=== PATIENT | female | born 1950 | race Asian ===

== ENCOUNTER → 2020-09-20 12:53 | Outpatient (CLI) | payer MEDICARE, SELFPAY ==
--- NOTE | ~2020-09-20 | MM_ITS ---
EXAMINATION: MM screening tessie BI w allan HISTORY: Screening TECHNIQUE: Craniocaudal and mediolateral oblique 3-D tomosynthesis images were obtained and synthetic 2-D images were generated. CAD analysis was submitted and interpreted. COMPARISON: Comparison to multiple prior studies sequentially, with oldest reviewed study dated 03/2011. BREAST PARENCHYMAL COMPOSITION: The breasts are heterogeneously dense, which may obscure small masses . FINDINGS: There is no evidence of suspicious mass, calcification, or architectural distortion to sugg est malignancy in either breast. There has been no suspicious interval change. IMPRESSION: 1. No mammographic evidence of malignancy. 2. Recommend routine screening mammography in one year. BI-RADS Category 1: Negative Reviewed, dictated and finalized at location A.
== END ==
DX: Z12.31 Encounter for screening mammogram for malignant neoplasm of breast (principal)
CPT/HCPCS: 77063; 77067

== ENCOUNTER 2023-09-28 09:45 | Inpatient (IN) | payer MEDICARE, SELFPAY ==
[2023-09-28] VITALS (81 sets, daily range): BP systolic 63–174; BP diastolic 35–93; PULSE 55–139; RESP 11–33; TEMP 36.3–37.6; O2SAT 90–100; BMI 17.0
--- NOTE | ~2023-09-28 | XR_ITS ---
EXAMINATION: XR chest 1V portable DATE: 10/12/2023 05:41 INDICATION: Bilateral infiltrates. Mechanical ventilation. TECHNIQUE: A single frontal view of the chest was obtained. COMPARISON: Chest single view 10/11/2023 FINDINGS: There is a diffuse interstitial pattern in the lungs. There are airspace opacities in the r ight upper lobe, right perihilar region, and the lower lung zones. No pleural effusion or pneumothora x. Cardiomegaly is noted. The endotracheal tube tip is 4.2 cm above the julian. The nasogastric tube tip is beyond the inferior margin of the radiograph, but at least to the stomach. A right upper extre mity peripherally inserted central venous catheter (PICC) is seen with tip at the superior cavoatrial junction. There are changes of aortic valve replacement. IMPRESSION: 1. Stable diffuse lung disease, consistent with pulmonary edema versus pneumonia. 2. Cardiomegaly. Reviewed, dictated and finalized at location A. IMPRESSION: 1. Stable diffuse lung disease, consistent with pulmonary edema versus pneumoni a. 2. Cardiomegaly.
--- NOTE | ~2023-09-28 | XR_ITS ---
EXAMINATION: XR chest 1V portable DATE: 10/03/2023 05:52 INDICATION: Intubated. Mechanical ventilation. TECHNIQUE: A single frontal view of the chest was obtained. COMPARISON: Chest single view 10/02/2023 FINDINGS: There are interstitial and airspace opacities in all lung zones bilaterally. No pleural eff usion or pneumothorax. Cardiomegaly is noted. There are changes of aortic valve replacement. The endo tracheal tube tip is 14 mm above the julian. The nasogastric tube tip is beyond the inferior margin o f the radiograph, but at least to the stomach. IMPRESSION: 1. Stable diffuse lung disease, consistent with pulmonary edema versus pneumonia. 2. Cardiomegaly. Reviewed, dictated and finalized at location A. IMPRESSION: 1. Stable diffuse lung disease, consistent with pulmonary edema versus pneumoni a. 2. Cardiomegaly.
--- NOTE | ~2023-09-28 | XR_ITS ---
EXAMINATION: XR chest 1V portable DATE: 10/04/2023 06:01 INDICATION: Intubated on mechanical ventilation. TECHNIQUE: A single frontal view of the chest was obtained. COMPARISON: Chest single view 10/03/2023, chest CT 09/28/2023 FINDINGS: There is a diffuse interstitial pattern in the lungs. There are mild airspace opacities in the upper lobes and lower lung zones. No pleural effusion or pneumothorax. Cardiomegaly is noted. Med elizabeth sternotomy wires and mediastinal surgical clips are seen, likely from prior coronary artery bypas s grafting. The endotracheal tube tip is 2.7 cm above the julian. The nasogastric tube tip is beyond the inferior margin of the radiograph, but at least to the stomach. A right upper extremity periphera lly inserted central venous catheter (PICC) is seen with tip at the superior cavoatrial junction. IMPRESSION: 1. Stable diffuse lung disease, consistent with pulmonary edema versus pneumonia. 2. Cardiomegaly. Reviewed, dictated and finalized at location A. IMPRESSION: 1. Stable diffuse lung disease, consistent with pulmonary edema versus pneumoni a. 2. Cardiomegaly.
--- NOTE | ~2023-09-28 | XR_ITS ---
XR abdomen gastric tube insert Ordering provider: Devon Pearson MD History: . OG placement . Comparison: None. FINDINGS: BOWEL: Nasogastric tube with the tip in the duodenum. Nonobstructive bowel gas pattern. ORGANOMEGALY: None. SIGNIFICANT PATHOLOGIC CALCIFICATIONS: Bilateral kidney stones OTHER: No free air is seen under the diaphragm. IMPRESSION: NO ACUTE ABDOMINAL FINDINGS. Bilateral kidney stones. Reviewed, dictated and finalized at location A.
--- NOTE | ~2023-09-28 | XR_ITS ---
EXAMINATION: XR chest 1V portable DATE: 09/29/2023 05:28 INDICATION: Intubated. TECHNIQUE: A single frontal view of the chest was obtained. COMPARISON: Chest single view 09/28/2023 FINDINGS: There is a diffuse interstitial pattern in the lungs. There are patchy airspace opacities i n the lungs, right worse than left. No pleural effusion or pneumothorax. Cardiomegaly is noted. There are changes of aortic valve replacement. The endotracheal tube tip is 2.3 cm above the julian. The n asogastric tube tip is in the stomach. IMPRESSION: 1. Stable diffuse lung disease, consistent with pulmonary edema versus pneumonia. 2. Cardiomegaly. Reviewed, dictated and finalized at location E. IMPRESSION: 1. Stable diffuse lung disease, consistent with pulmonary edema versus pneumoni a. 2. Cardiomegaly.
--- NOTE | ~2023-09-28 | US_ITS ---
EXAMINATION: US thoracentesis DATE: 10/05/2023 14:45 INDICATION: Right pleural effusion. Failure to wean from vent. TECHNIQUE: The procedure and its risks and benefits were discussed with the patient. Potential risks discussed included bleeding, infection, and pneumothorax. The patient understood the risks and agreed to proceed. The skin was prepped and draped in sterile fashion. 1% lidocaine was used for local anes thesia. Under ultrasound guidance, a 5 Fr catheter with trochar was advanced into the right pleural e ffusion. Fluid was aspirated. The catheter was removed, and a dressing was applied. There were no imm ediate complications. FINDINGS: Ultrasound images demonstrate a small right pleural effusion and the catheter within the fluid. IMPRESSION: 1. Successful ultrasound-guided thoracentesis yielding 500 mL of clear light yellow fluid. Reviewed, dictated and finalized at location A. IMPRESSION: 1. Successful ultrasound-guided thoracentesis yielding 500 mL of clear light y ellow fluid.
--- NOTE | ~2023-09-28 | XR_ITS ---
EXAMINATION: XR chest 1V portable DATE: 10/02/2023 05:46 INDICATION: Intubated on mechanical ventilation. TECHNIQUE: A single frontal view of the chest was obtained. COMPARISON: Chest single view 10/01/2023, chest CT 09/28/2023 FINDINGS: There are airspace and interstitial opacities in all lung zones bilaterally. No pleural eff usion or pneumothorax. Cardiomegaly is noted. The endotracheal tube tip is 2.4 cm above the julian. T here are changes of aortic valve replacement. IMPRESSION: 1. Stable diffuse lung disease, consistent with pulmonary edema versus pneumonia. 2. Cardiomegaly. Reviewed, dictated and finalized at location A. IMPRESSION: 1. Stable diffuse lung disease, consistent with pulmonary edema versus pneumoni a. 2. Cardiomegaly.
--- NOTE | ~2023-09-28 | XR_ITS ---
EXAMINATION: XR chest 1V portable DATE: 10/10/2023 05:36 INDICATION: Bilateral infiltrates. Mechanical ventilation. TECHNIQUE: A single frontal view of the chest was obtained. COMPARISON: Chest single view 10/09/2023 FINDINGS: There is a diffuse interstitial pattern in the lungs. There are airspace opacities in right upper lobe, right perihilar region, and left lower lung zone. No pleural effusion or pneumothorax. C ardiomegaly is noted. There are changes of aortic valve replacement. The nasogastric tube tip is in t he stomach. The endotracheal tube tip is 3.4 cm above the julian. A right upper extremity peripherall y inserted central venous catheter (PICC) is seen with tip in the superior vena cava. IMPRESSION: 1. Stable diffuse lung disease, consistent with pulmonary edema versus pneumonia. 2. Cardiomegaly. Reviewed, dictated and finalized at location A. IMPRESSION: 1. Stable diffuse lung disease, consistent with pulmonary edema versus pneumoni a. 2. Cardiomegaly.
--- NOTE | ~2023-09-28 | XR_ITS ---
EXAMINATION: XR chest 1V portable DATE: 10/06/2023 05:40 INDICATION: Respiratory failure TECHNIQUE: frontal view of the chest was obtained. COMPARISON: Chest radiograph dated 10/05/2023 FINDINGS: Endotracheal tube tip 3.2 cm above the julian. Nasogastric tube tip in proximal side port in the stom ach. Diffuse mild increased interstitial opacities throughout both lungs. There are more focal airspace op acities in the left lower lung zone. No pleural effusion or pneumothorax. Cardiomegaly. Median sterno shonna wires and mediastinal surgical clips are seen, likely from prior coronary artery bypass grafting . Coronary artery stenting. Aortic valve repair. IMPRESSION: 1. Diffuse increased interstitial pattern and focal airspace opacities in the left lower lung zone wh ich could represent pneumonia, atelectasis, mild pulmonary edema or some combination thereof. 2. Cardiomegaly. Reviewed, dictated and finalized at location A. IMPRESSION: 1. Diffuse increased interstitial pattern and focal airspace opacities in the l eft lower lung zone which could represent pneumonia, atelectasis, mild pulmonar y edema or some combination thereof. 2. Cardiomegaly.
--- NOTE | ~2023-09-28 | CT_ITS ---
EXAMINATION: CT chest abdomen pelvis wo con DATE: 10/04/2023 10:50 INDICATION: Acute anemia. TECHNIQUE: Computed tomography (CT) of the chest, abdomen, and pelvis was performed without intraveno us contrast. Automated exposure control and iterative reconstruction technique were employed. The dos e-length product was 369.85 mGy-cm. COMPARISON: CT 09/28/2023 FINDINGS: CHEST CT: The lungs demonstrate widespread septal thickening and groundglass opacities and small groundglass op acities. There are small nodules in right upper lobe and right middle lobe. There are small pleural e ffusions, right worse than left. Cardiomegaly is noted. There are coronary artery calcifications. The re are changes of coronary artery bypass grafting. There are changes of aortic valve replacement. No pericardial effusion. There is mild mucosal lymphadenopathy, likely reactive. A right upper extremity peripherally inserted central venous catheter (PICC) is seen with tip at the superior cavoatrial jose ction. There is an endotracheal tube tip in expected position. The nasogastric tube tip is in the dis lisandro stomach. There is mild thoracic spondylosis. ABDOMEN/PELVIS CT: The liver demonstrates periportal edema. The gallbladder is distended and contains material measuring soft tissue attenuation, which may be sludge or contrast. The spleen, pancreas, and adrenal glands a re normal. There is cortical thinning of the kidneys. There are multiple stones in each kidney measur ing up to 6 mm. There is calcified atherosclerosis of the aorta and many of the other arteries. Stool distends the rectum. The appendix is normal. There is widespread edema of the intra-abdominal fat an d body wall. The bladder is decompressed by a Jain catheter. There is mild lumbar spondylosis. IMPRESSION: 1. Diffuse lung disease, stable from 09/28/2023, consistent with pulmonary edema versus pneumonia. 2. Small pleural effusions, right worse than left. 3. Gallbladder distention, which may be secondary to fasting. Acute cholecystitis is not excluded. 4. Stool distends the rectum. Reviewed, dictated and finalized at location A. IMPRESSION: 1. Diffuse lung disease, stable from 09/28/2023, consistent with pulmonary edema versus pneumonia. 2. Small pleural effusions, right worse than left. 3. Gallbladder distention, which may be secondary to fasting. Acute cholecystit is is not excluded. 4. Stool distends the rectum.
--- NOTE | ~2023-09-28 | XR_ITS ---
EXAMINATION: XR chest 1V portable DATE: 10/13/2023 05:31 INDICATION: Bilateral infiltrates. Mechanical ventilation. TECHNIQUE: A single frontal view of the chest was obtained. COMPARISON: Chest single view 10/12/2023 FINDINGS: There is a diffuse interstitial pattern in the lungs. There are airspace opacities in the r ight upper lobe, perihilar regions, and lower lung zones. No pleural effusion or pneumothorax. Cardio megaly is noted. There are changes of aortic valve replacement. The endotracheal tube tip is 4.3 cm a nicole the julian. The nasogastric tube tip is beyond the inferior margin of the radiograph, but at [place] st to the stomach. A right upper extremity peripherally inserted central venous catheter (PICC) is se en with tip at the superior cavoatrial junction. IMPRESSION: 1. Stable diffuse lung disease, consistent with pulmonary edema versus pneumonia. 2. Cardiomegaly. Reviewed, dictated and finalized at location A. IMPRESSION: 1. Stable diffuse lung disease, consistent with pulmonary edema versus pneumoni a. 2. Cardiomegaly.
--- NOTE | ~2023-09-28 | XR_ITS ---
EXAMINATION: XR chest 1V portable DATE: 10/09/2023 05:36 INDICATION: Intubated mechanical ventilation. TECHNIQUE: A single frontal view of the chest was obtained. COMPARISON: Chest single view 10/08/2023 FINDINGS: There is a diffuse interstitial pattern in the lungs. There are airspace opacities in the r ight upper lobe, right perihilar region, and left lower lung zone. No pleural effusion or pneumothora x. Cardiomegaly is noted. The endotracheal tube tip is 3.8 cm above the julian. The nasogastric tube tip is beyond the inferior margin of the radiograph, but at least to the stomach. There are changes o f aortic valve replacement. A right upper extremity peripherally inserted central venous catheter (PI CC) is seen with tip in the superior vena cava. IMPRESSION: 1. Stable diffuse lung disease, consistent with pulmonary edema versus pneumonia. 2. Cardiomegaly. Reviewed, dictated and finalized at location A. IMPRESSION: 1. Stable diffuse lung disease, consistent with pulmonary edema versus pneumoni a. 2. Cardiomegaly.
--- NOTE | ~2023-09-28 | XR_ITS ---
EXAMINATION: XR chest 1V portable DATE: 10/01/2023 05:44 INDICATION: Intubated. TECHNIQUE: A single frontal view of the chest was obtained. COMPARISON: Chest single view 09/30/2023 FINDINGS: There is a diffuse interstitial pattern in the lungs. There are airspace opacities in the l ower lung zones and right upper lobe. No pleural effusion or pneumothorax. Cardiomegaly is noted. The endotracheal tube tip is 1.8 cm above the julian. The nasogastric tube tip is beyond the inferior ma rgin of the radiograph, but at least to the stomach. IMPRESSION: 1. Stable diffuse lung disease, consistent with pulmonary edema versus pneumonia. 2. Cardiomegaly. Reviewed, dictated and finalized at location A. IMPRESSION: 1. Stable diffuse lung disease, consistent with pulmonary edema versus pneumoni a. 2. Cardiomegaly.
--- NOTE | ~2023-09-28 | XR_ITS ---
EXAMINATION: XR chest 1V portable DATE: 10/07/2023 05:51 INDICATION: Intubation. TECHNIQUE: A single frontal view of the chest was obtained. COMPARISON: Chest single view 10/06/2023, chest CT 10/04/2023 FINDINGS: There is a diffuse interstitial pattern in the lungs. There are airspace opacities in right perihilar region and left lower lung zone. No pleural effusion or pneumothorax. Cardiomegaly is note d. The endotracheal tube tip is 3.4 cm above the julian. The nasogastric tube tip is in the stomach. A right upper extremity peripherally inserted central venous catheter (PICC) is seen with tip at the superior cavoatrial junction. IMPRESSION: 1. Stable diffuse lung disease, consistent with pulmonary edema versus pneumonia. 2. Cardiomegaly. Reviewed, dictated and finalized at location A. IMPRESSION: 1. Stable diffuse lung disease, consistent with pulmonary edema versus pneumoni a. 2. Cardiomegaly.
--- NOTE | ~2023-09-28 | XR_ITS ---
XR chest PICC line Ordering provider: Jeremi Matias MD History: 73 years Female with . PICC placement . Comparison: October 03, 2023. FINDINGS: MEDIASTINUM: The cardiac silhouette is slightly enlarged. Right PICC line is seen with the tip overly ing the superior vena cava. Other supporting lines are unchanged. Prominent heidy. Postoperative changes in the mediastinum. Coronary stent also noted. LUNGS: No effusions or pneumothorax. Prominent markings in the lower lobes with infiltrate. Prominent markings in the upper lobes. Bilateral interstitial changes. OTHER: No free air under the diaphragm. IMPRESSION: Right PICC line with tip overlying superior vena cava. Other appearances are unchanged from previous examination. Reviewed, dictated and finalized at location A. IMPRESSION: Right PICC line with tip overlying superior vena cava. Other appearances are un changed from previous examination.
--- NOTE | ~2023-09-28 | XR_ITS ---
XR_[id number]_CR DATE: 10/05/2023 14:41 INDICATION: Right thoracentesis follow-up TECHNIQUE: Portable upright AP chest on 10/05/2023 at 1438 hours COMPARISON: 10/04/2023 portable AP chest 10/04/2023 CT chest abdomen pelvis FINDINGS: There is no evidence of pneumothorax post right thoracentesis. No pleural effusions are gemma dent radiographically. Endotracheal tube and NG tube are in satisfactory position. Right upper central hepatic catheter tip overlies the superior vena cava near the superior cavoatrial junction. Status post sternotomy. Coronary artery stent Cardiomegaly, aortic atherosclerosis. Mild scattered infiltrate and/or atelectasis is noted, primarily in the left lower lobe. IMPRESSION: No evidence of right-sided pneumothorax following right thoracentesis Reviewed, dictated and finalized at Location A. Reviewed, dictated and finalized at location J. IMPRESSION: No evidence of right-sided pneumothorax following right thoracentes is
--- NOTE | ~2023-09-28 | XR_ITS ---
EXAMINATION: XR chest ET placement DATE: 09/28/2023 12:44 INDICATION: Endotracheal tube adjustment. TECHNIQUE: A single frontal view of the chest was obtained. COMPARISON: Chest single view at 12:21 PM FINDINGS: There is a diffuse interstitial pattern in the lungs. There are airspace opacities at the l brian bases. No pleural effusion or pneumothorax. Cardiomegaly is noted. There are changes of aortic va lve replacement. The endotracheal tube tip is 2.8 cm above the julian. The nasogastric tube tip is in the stomach. IMPRESSION: 1. Stable diffuse lung disease, consistent with pulmonary edema versus pneumonia. 2. Cardiomegaly. Reviewed, dictated and finalized at location A. IMPRESSION: 1. Stable diffuse lung disease, consistent with pulmonary edema versus pneumoni a. 2. Cardiomegaly.
--- NOTE | ~2023-09-28 | CT_ITS ---
EXAMINATION: CT chest abdomen pelvis wo con DATE: 09/28/2023 11:20 INDICATION: Chest and abdominal pain. TECHNIQUE: Computed tomography (CT) of the chest, abdomen, and pelvis was performed without intraveno us contrast. Automated exposure control and iterative reconstruction technique were employed. The dos e-length product was 277.87 mGy-cm. COMPARISON: None FINDINGS: CHEST CT: The lungs demonstrate diffuse septal thickening. There are airspace and groundglass opacities in the lungs with a perihilar bronchovascular predominance. There are moderate-sized right and small left pl eural effusions. Cardiomegaly is noted. There are changes of aortic valve replacement and coronary ar janette bypass grafting. No pericardial effusion. There is mild thoracic spondylosis. ABDOMEN/PELVIS CT: The liver, spleen, pancreas, and adrenal glands are normal. The bladder is distended and contains hyp erdense material. There is cortical thinning of the kidneys. There are multiple stones in each kidney measuring up to 6 mm on the right. There is calcified atherosclerosis of the aorta and many of the o ther arteries. There is diverticulosis of the colon without evidence of diverticulitis. There are no dilated loops of bowel. The appendix is normal. There is edema of the intra-abdominal fat. There is a small volume of ascites. There are sacral and right ischial decubitus ulcers. There is no evidence o f osteomyelitis. IMPRESSION: 1. Diffuse lung disease, likely moderate pulmonary edema. 2. Moderate-sized right and small left pleural effusions. 3. Small volume of ascites. 4. Gallbladder distention, which may be secondary to fasting. Correlate with physical exam to exclude acute cholecystitis. Reviewed, dictated and finalized at location A. IMPRESSION: 1. Diffuse lung disease, likely moderate pulmonary edema. 2. Moderate-sized right and small left pleural effusions. 3. Small volume of ascites. 4. Gallbladder distention, which may be secondary to fasting. Correlate with ph ysical exam to exclude acute cholecystitis.
--- NOTE | ~2023-09-28 | XR_ITS ---
EXAMINATION: XR chest 1V portable DATE: 10/11/2023 05:42 INDICATION: Bilateral infiltrates. Mechanical ventilation. TECHNIQUE: A single frontal view of the chest was obtained. COMPARISON: Chest single view 10/10/2023 FINDINGS: There is a diffuse interstitial pattern in the lungs. There are airspace opacities in right upper lobe, right perihilar region, and left lower lung zone. No pleural effusion or pneumothorax. C ardiomegaly is noted. The endotracheal tube tip is 3.3 cm above the julian. The nasogastric tube tip is beyond the inferior margin of the radiograph, but at least to the stomach. There are changes of ao rtic valve replacement. A right upper extremity peripherally inserted central venous catheter (PICC) is seen with tip at the superior cavoatrial junction. IMPRESSION: 1. Stable diffuse lung disease, consistent with pulmonary edema versus pneumonia. 2. Cardiomegaly. Reviewed, dictated and finalized at location A. IMPRESSION: 1. Stable diffuse lung disease, consistent with pulmonary edema versus pneumoni a. 2. Cardiomegaly.
--- NOTE | ~2023-09-28 | XR_ITS ---
EXAMINATION: XR chest 1V portable DATE: 09/30/2023 05:46 INDICATION: Intubated. TECHNIQUE: A single frontal view of the chest was obtained. COMPARISON: Chest single view 09/29/2023 FINDINGS: There is a diffuse interstitial pattern in the lungs. There are airspace opacities in the r ight lung zones and left lower lung zone. There is a small right pleural effusion. No pneumothorax. C ardiomegaly is noted. The endotracheal tube tip is 3.3 cm above the julian. The nasogastric tube tip is beyond the inferior margin of the radiograph, but at least to the stomach. There are changes of ao rtic valve replacement. IMPRESSION: 1. Stable diffuse lung disease, consistent with pulmonary edema versus pneumonia. 2. Small right pleural effusion. 3. Cardiomegaly. Reviewed, dictated and finalized at location A. IMPRESSION: 1. Stable diffuse lung disease, consistent with pulmonary edema versus pneumoni a. 2. Small right pleural effusion. 3. Cardiomegaly.
--- NOTE | ~2023-09-28 | XR_ITS ---
EXAMINATION: XR abdomen/kub 1V DATE: 09/28/2023 12:27 INDICATION: Nasogastric tube placement. TECHNIQUE: A supine view of the abdomen was obtained. COMPARISON: None. FINDINGS: There are no dilated loops of bowel. The lower abdomen is excluded. The nasogastric tube ti p is in the distal stomach. IMPRESSION: 1. Nasogastric tube in the distal stomach. Reviewed, dictated and finalized at location A.
--- NOTE | ~2023-09-28 | US_ITS ---
EXAMINATION: US renal BI DATE: 09/28/2023 14:54 INDICATION: Acute kidney injury. TECHNIQUE: Multiple ultrasound grayscale images of the kidneys were obtained. COMPARISON: CT 09/28/2023 FINDINGS: The right kidney measures 8.6 x 3.5 x 3.9 cm. The left kidney measures 9.5 x 4.5 x 3.6 cm. The kidney s demonstrate increased parenchymal echogenicity, consistent with nonspecific nephropathy. There is n o hydronephrosis. The bladder is decompressed by a Jain catheter. Perihepatic ascites is noted. IMPRESSION: 1. Mild atrophy of right kidney. No hydronephrosis. 2. Small volume of ascites. Reviewed, dictated and finalized at location E.
--- NOTE | ~2023-09-28 | US_ITS ---
EXAMINATION:US venous doppler LE BI INDICATION:Fever. Rule out DVT. TECHNIQUE: Multiple grayscale, color flow and Doppler images of the right and left lower extremity de ep venous systems were obtained and reviewed. COMPARISON: No prior studies for comparison. FINDINGS: The common femoral, superficial femoral and popliteal veins demonstrate normal respiratory variation, augmentation and compressibility. Color flow is also seen within the posterior tibial, pe roneal, greater saphenous and profunda veins. IMPRESSION: 1: No lower extremity deep venous thrombosis. Reviewed, dictated and finalized at location B.
--- NOTE | ~2023-09-28 | US_ITS ---
EXAMINATION: US venous doppler UE DATE: 10/10/2023 15:22 INDICATION: Bilateral upper limb swelling at the hands TECHNIQUE: Grayscale images without and with compression and Doppler images of the bilateral upper ex tremity veins were obtained. COMPARISON: None. FINDINGS: The right internal jugular vein, subclavian vein, axillary vein, brachial vein, basilic vein, cephali c vein, radial vein, and ulnar vein are patent. Linear echogenic appreciably peripherally inserted central venous catheter is seen in the right basil ic, axillary and subclavian arteries. The left internal jugular vein, subclavian vein, axillary vein, brachial vein, basilic vein, cephalic vein, radial vein, and ulnar vein are patent. IMPRESSION: 1. Patent bilateral upper extremity veins. No evidence of venous thrombosis. Reviewed, dictated and finalized at location A.
--- NOTE | ~2023-09-28 | XR_ITS ---
EXAMINATION: XR chest 1V portable DATE: 10/08/2023 05:38 INDICATION: Pneumonia. TECHNIQUE: A single frontal view of the chest was obtained. COMPARISON: Chest single view 10/07/2023 FINDINGS: There is a diffuse interstitial pattern in the lungs. There are airspace opacities in right perihilar region and left lower lung zone. No pleural effusion or pneumothorax. Cardiomegaly is note d. The endotracheal tube tip is 3.8 cm above the julian. There are changes of aortic valve replacemen t. The nasogastric tube tip is in the distal stomach. A right upper extremity peripherally inserted c entral venous catheter (PICC) is seen with tip at the superior cavoatrial junction. IMPRESSION: 1. Stable diffuse lung disease, consistent with pulmonary edema versus pneumonia. 2. Cardiomegaly. Reviewed, dictated and finalized at location A. IMPRESSION: 1. Stable diffuse lung disease, consistent with pulmonary edema versus pneumoni a. 2. Cardiomegaly.
--- NOTE | ~2023-09-28 | XR_ITS ---
EXAMINATION: XR chest ET placement DATE: 09/28/2023 12:27 INDICATION: Intubation. TECHNIQUE: A single frontal view of the chest was obtained. COMPARISON: Chest 2 views 02/29/2016 FINDINGS: There is a diffuse interstitial pattern in the lungs. There are airspace opacities in the l ower lung zones and in peripheral right upper lobe. Skinfolds overlie right hemithorax. No pleural ef fusion or pneumothorax. The heart size is normal. The endotracheal tube tip is in the right mainstem bronchus. There are changes of aortic valve replacement. The nasogastric tube tip is in the stomach. IMPRESSION: 1. Endotracheal tube tip in the right mainstem bronchus. I called this result to Dr. Herzog. 2. Worsening diffuse lung disease, consistent with pulmonary edema versus pneumonia. Reviewed, dictated and finalized at location A. IMPRESSION: 1. Endotracheal tube tip in the right mainstem bronchus. I called this result t o Dr. Herzog. 2. Worsening diffuse lung disease, consistent with pulmonary edema versus pneum onia.
--- NOTE | ~2023-09-28 | CT_ITS ---
EXAMINATION: CT brain wo con DATE: 09/28/2023 11:20 INDICATION: Altered mental status. TECHNIQUE: Computed tomography (CT) of the head was performed without intravenous contrast. The mA wa s adjusted according to patient size. Iterative reconstruction technique was employed. The dose-lengt h product was 908.00 mGy-cm. COMPARISON: None FINDINGS: There is an old infarct involving the right basal ganglia and anterior limb right internal capsule. There is an old infarct in right parietal lobe. There is no intracranial hemorrhage, acute i nfarction, or abnormal intracranial mass lesion. The ventricles are normal in size. The mastoid air c ells are normal. The paranasal sinuses are clear. IMPRESSION: 1. 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 Reviewed, dictated and finalized at location A. IMPRESSION: 1. 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
--- NOTE | 2023-09-28 09:50 | ECG_ITS ---
Test Date: 2023-09-28 09:56:03 Measurements Intervals [place] Rate: 70 P: 54 [place]: 177 QRS: 64 QRSD: 114 T: 156 QT: 381 QTc: 413 Interpretive Statements SINUS RHYTHM POSSIBLE LEFT ATRIAL ENLARGEMENT [-0.1mV P-WAVE IN V1/V2] SEPTAL MYOCARDIAL INFARCTION , OF INDETERMINATE AGE [40+ ms Q WAVE IN V1/V2] MODERATE T-WAVE ABNORMALITY, CONSIDER LATERAL ISCHEMIA [-0.1+ mV T-WAVE IN I/aVL/V5/V6] No previous ECG available for comparison Electronically Signed On 09-29-2023 13:32:47 CDT by Morgan Reed M.D.
[2023-09-28 10:17] LABS: Alveolar/Arterial O2 Gradient < 0.0 mmHg; Base Excess ABG 6.9 mEq/l (+/-2.0); Fractional Inspired Oxygen 28 %; HCO3 ABG 37.4 mEq/l (22.0-26.0); Oxygen Saturation ABG 95.3 % (95.0-100.0); Oxyhemoglobin 96.4 % THb (90.0-100.0); PO2 ABG 97.6 mmHg (80.0-100.0); PO2 FiO2 Ratio Arterial Blood 3.49 %; Total Hemoglobin 10.2 g/dL (12.0-18.0)
[2023-09-28 10:17] LABS: Basophils Percent Auto 0.4 % (0.2-1.2); Eosinophils Absolute Auto 0.3 K/mm3 (0-0.3); Hematocrit 33.2 % (37.0-47.0); Hemoglobin 9.6 g/dL (12.0-15.0); Immature Granulocyte Absolute 0.03 K/mm3 (0.00-0.031); Immature Granulocyte Percent A 0.3 % (0-0.5); Lymphocytes Percent Auto 21.3 % (18.3-44.2); Mean Corpuscular HGB Conc 28.9 g/dl (32-36); Mean Corpuscular Hemoglobin 29.1 pg (26-34); Mean Corpuscular Volume 100.6 fl (80-100); Mean Platelet Volume 10.5 fl (7.4-10.4); Neutrophils Absolute Auto 7.2 K/mm3 (1.3-6.7); Platelet Count Result 293 k/mm3 (150-375); Red Cell Distribution Width 19.1 % (11.5-14.5); White Blood Count 10.8 K/mm3 (4.5-10.0)
[2023-09-28 10:18] LABS: PCO2 ABG 98.8 mmHg (35.0-45.0); pH ABG 7.196 (7.350-7.450)
[2023-09-28 10:19] LABS: Site Drawn LEFT BRACHIAL
[2023-09-28 10:20] LABS: Device NASAL CANNULA
[2023-09-28] MEDS: ONDANSETRON INJ 4 MG/2 ML VIAL IV PUSH (10:21)
[2023-09-28] MEDS: LACTATED RINGERS 1,000 ML 999 ML IV CONT (10:21)
[2023-09-28 10:30] LABS: Alanine Aminotransferase 25 U/L (6-35); Albumin Level 3.8 g/dL (3.5-5.1); Alkaline Phosphatase 66 U/L (38-126); Aspartate Amino Transferase 36 U/L (14-36); Bilirubin,Total 0.3 mg/dL (0.2-1.3); Blood Urea Nitrogen 61 mg/dL (7-17); Carbon Dioxide > 40 mmol/L (22-30); Chloride 95 mmol/L (98-107); Estimated CRCL calculation 13 ml/min; Estimated Glomerular Filt Rate 22; Glucose 150 mg/dL (65-110); Potassium 5.4 mmol/L (3.4-5.0); Sodium 140 mmol/L (137-145)
[2023-09-28] MEDS: ALBUTEROL SULFATE NEB 2.5 MG/3 ML INH 5 MG INHALATION ×3 (10:33→10:34)
[2023-09-28] MEDS: IPRATROPIUM BR 0.02% INH SOLN 0.5 MG/2.5 ML VIAL INHALATION ×3 (10:34)
[2023-09-28 10:36] LABS: NT Pro B Type Natriuretic Pept 14000 pg/mL (19.9-100)
[2023-09-28 10:37] LABS: Anisocytosis 1+; Hypochromasia 1+; Platelet Estimate Adequate (Adequate); Poikilocytosis 1+; Schistocytes None Seen; Stomatocytes 1+; Target Cells 1+
[2023-09-28 10:39] LABS: Troponin I 0.028 ng/mL (0.000-0.034)
[2023-09-28 10:40] LABS: INR 4.6; Prothrombin Time 43.7 Seconds (11.1-14.7)
[2023-09-28 10:41] LABS: Partial Thromboplastin Time 47.4 Seconds (22.3-36.8)
[2023-09-28] MEDS: MAGNESIUM SULF 2 GM/WATER 50ML 2 GM/50 ML BAG IVPB (10:45)
[2023-09-28] MEDS: methylPREDNISolone SOD SUCC 125 MG VIAL IV PUSH (10:45)
--- NOTE | 2023-09-28 11:09 | ED.AMS ---
HPI - Altered Mental Status General Chief Complaint: Altered Mental Status Stated Complaint: AMS, FTT Time Seen by Provider: 09/28/23 09:52 History of Present Illness HPI narrative: This is a 73-year-old female with past medical history including coronary artery disease status post CABG, mechanical AV valve replacement, hypertension, hyperlipidemia and diabetes. Patient presents accompanied by her for concerns of altered mental status and failure to thrive symptoms over last few days. Patient is normally awake and alert x3 and able to ambulate in a wheelchair. Patient's noted that over last 24 hours she has been very somnolent, not intractable, does not know where she is and is only alert occasionally to her name. Patient is intractable does follow commands. No obvious signs of trauma no concerns for falls per . She is on warfarin but does not get her levels frequently checked. Patient is not eating or drinking in the last few days. No nausea, vomiting or diarrhea per . No dark tarry stools or blood per rectum. states that she was recently started on Bactrim for suspected UTI on the 6th of this month. Prior to these episodes she was otherwise in her normal state of health and has never had anything like this happen to her in the past. Related Data Allergies Allergy/AdvReac Type Severity Reaction Status Date / Time hydrocodone Allergy Mild Nausea and Verified 08/18/14 12:23 Vomiting Penicillins Allergy Unknown Verified 10/24/11 12:22 Review of Systems Review of Systems: As reviewed above in the HPI [facility] Surgical History Surgical History (Updated 09/28/23 @ 11:11 by Pancho Herzog MD) Aortic valve replaced Hx of CABG Family History Family History Mother Patient's mother is Family history of coronary artery disease, Onset Age: 65 Father Patient's father is Other Diabetes mellitus Family history of cardiovascular disease Hypertension Social History Social History Smoking status: Never smoker Second hand tobacco smoke exposure: No Alcohol intake: never Exam Narrative: GENERAL: Ill-appearing, cachectic in appearance, in mild respiratory distress HEAD: [Normocephalic, atraumatic.] EYES: [PERRLA and EOMI.] ENT: Nares clear, no rhinorrhea or epistaxis. Mucous membranes moist. NECK: Supple. CHEST: Diminished air entry, mild respiratory distress, some labored respirations. HEART: [Regular rate and rhythm]. No murmur heard. [Normal peripheral pulses.] ABDOMEN: [Soft, nondistended], [nontender], [No rigidity or guarding] EXTREMITIES: Normal range of motion. [No edema.] SKIN: Warm, dry, no rash. NEURO: Seems to move all extremities, alert oriented x1, limited neuro exam based on patient's level of mentation at this time PSYCH: Unable to fully assess Course Vital Signs Vital signs: Vital Signs Temperature 36.7 C 09/28/23 09:57 Pulse Rate 70 09/28/23 09:57 Respiratory Rate 20 09/28/23 09:57 Blood Pressure 148/50 H 09/28/23 09:57 Pulse Oximetry 100 09/28/23 09:57 Oxygen Delivery Room Air 09/28/23 09:57 Temperature 36.7 C 09/28/23 09:57 Pulse Rate 80 09/28/23 14:14 Respiratory Rate 20 09/28/23 13:54 Blood Pressure 172/62 H 09/28/23 13:54 Pulse Oximetry 97 09/28/23 14:14 Oxygen Delivery Mechanical Ventilation 09/28/23 14:14 Oxygen Flow Rate 2 09/28/23 10:06 Fraction of Inspired Oxygen 35 09/28/23 14:14 Procedures ABG Interpretation ABG Interpretation 1: ABG Results: PH 7.19, pCO2 98, bicarb of 37.4 Interpretation: respiratory acidosis Additional Comments: acute on chronic uncompensated respiratory acidosis ABG Interpretation 2: ABG Results: PH 7.133, pCO2 116, bicarb of 38. Interpre
[2023-09-28 11:35] LABS: Base Excess ABG 6.3 mEq/l (+/-2.0); Fractional Inspired Oxygen 80 %; Oxygen Content ABG 14.4 %vol (16.0-22.0); Oxygen Saturation ABG 97.8 % (95.0-100.0); Oxyhemoglobin 98.4 % THb (90.0-100.0); PO2 ABG 144.4 mmHg (80.0-100.0); Total Hemoglobin 10.2 g/dL (12.0-18.0)
[2023-09-28 11:38] LABS: pH ABG 7.133 (7.350-7.450)
[2023-09-28 11:39] LABS: Device NON-INVASIVE VENT; Non-Invasive Expiratory Pressure 5 CMH2O; Non-Invasive Inspiratory Pressure 18 CMH2O; Non-Invasive Vent Rate 10 /MIN; PCO2 ABG 116.2 mmHg (35.0-45.0); Site Drawn LEFT BRACHIAL
[2023-09-28 12:04] LABS: CRP < 0.5 mg/dL (<1.0)
[2023-09-28] MEDS: fentaNYL CITRATE INJ (*CRX) 100 MCG/2 ML VIAL (12:15)
[2023-09-28] MEDS: FENTANYL 2,500MCG/NS250ML(*CRX 2,500 MCG/250 ML BAG (12:31)
[2023-09-28 13:02] LABS: Alveolar/Arterial O2 Gradient 103.7 mmHg; Base Excess ABG 13.3 mEq/l (+/-2.0); Fractional Inspired Oxygen 50 %; HCO3 ABG 35.9 mEq/l (22.0-26.0); Oxygen Content ABG 14.7 %vol (16.0-22.0); Oxygen Saturation ABG 99.6 % (95.0-100.0); Oxyhemoglobin 99.2 % THb (90.0-100.0); PCO2 ABG 37.7 mmHg (35.0-45.0); PO2 ABG 210.4 mmHg (80.0-100.0); PO2 FiO2 Ratio Arterial Blood 4.21 %; Total Hemoglobin 10.2 g/dL (12.0-18.0)
[2023-09-28 13:03] LABS: Arterial Blood Gas PEEP 8 cmH2O; Arterial Blood Gas Tidal Volume 380 ml; Arterial Blood Gas Vent Mode CMV; Arterial Blood Gas Ventilator rate 28 /MIN; Device VENTILATOR; Site Drawn RIGHT BRACHIAL; pH ABG 7.597 (7.350-7.450)
--- NOTE | 2023-09-28 13:28 | PC.NURSE ---
1152 Sodium Bicarb given by verbal order by EDP 1153 second dose of Sodium Bicarb given by EDP 1153 Pushed dose of Epi given by EDP 1200 Etomidate 20mg given per verbal order by EDP 1202 Rocuronium 70mg given by verbal order per EDP 1204 pt intubated with tube size 8, 24 at the lip, good color change and bilateral breath sounds. 1215 100 mcg of Fentanyl given by verbal order by EDP and Fentanyl drip for sedation started at 1231.
--- NOTE | 2023-09-28 14:00 | ADMGEN ---
This patient, Allison Ji, was admitted to Intensive Care Unit-6. Patient/family oriented to hospital policies and general routines including ID bracelet, bed and alarms, visiting hours, pain management, procedures, bathroom and other care routines, personal items, smoking policy, room service/diet, and visiting hours. Information on how to activate the Rapid Response Team has been discussed. Patient/Family are encouraged to report perceived risks to care and to ask questions if they do not understand what they are told or what they should do.
[2023-09-28 14:15] LABS: Influenza A QL RT-PCR Negative (Negative); Influenza B QL RT-PCR Negative (Negative); RSV RNA, RT-PCR Negative (Negative); SARS-CoV-2 RNA PCR Negative (Negative)
[2023-09-28 14:30] LABS: Add Urine Microscopic? YES; Appearance Urine Clear (Clear); Bacteria Urine None Seen /hpf; Bilirubin Urine Negative (Negative); Blood Urine Negative (Negative); Color Urine Yellow (Yellow); Glucose Urine UA Negative (Negative); Hyaline Casts Urine Present /lpf; Ketones Urine Trace mg/dL (Negative); Leukocyte Esterase Ur Negative LEU/UL (Negative); Need Manual Microscopic Reviewed; Nitrate Urine Negative (Negative); Non Pathogenic Casts >20; Protein Urine 1+ mg/dL (Negative); RBC Urine 0-2 /hpf (0-2); Specific Grav Ur 1.015 (1.001-1.035); Squamous Epithelial Cell Urine None Seen /hpf (Few); Urobilinogen Urine 0.2 mg/dL (<2.0); WBC Urine 0-5 /hpf (0-3)
[2023-09-28] MEDS: PROPOFOL IV EMULSION 100 ML 2.43 MG IV CONT (14:40)
--- NOTE | 2023-09-28 14:41 | WPDCNINT ---
Assessment and Plan Assessment and plan (1) Acute hypercapnic respiratory failure: Code(s): J96.02 - Acute respiratory failure with hypercapnia Status: Acute Assessment and Plan: 09/27: Patient presented with altered mental status, respiratory distress was found to be an acute hypercapnic respiratory failure, not amenable to BiPAP, was successfully intubated in the ER on 09/28/2023 -acute respiratory failure could be related to interstitial lung disease flare, CHF exacerbation - In the ER patient initial ABG showed pH of 7.19, pCO2 of 98, PO2 of 97 on 2 L nasal cannula, Bicarb of 37, pCO2 -patient was placed on BiPAP, repeat ABG showed pH of 7.13, pCO2 of 119, PO2 of 144 on BiPAP 18/5, 80% FiO2 Currently patient on CMV mode of ventilation, tidal volumes for height is > 8ml/kg. -given her interstitial lung disease, will decrease tidal volumes, -will change I to E ratio secondary to hypercapnic respiratory failure -will start DuoNebs -will give 1 dose of Lasix -patient started on antibiotics with ceftriaxone, doxycycline and vancomycin (will deescalate when cultures are negative) -blood pressures have been stable, was sedated with propofol to maintain a RASS of 0 to - 2, daily a SBT and SAT Repeat ABGs (2) Interstitial lung disease: Code(s): J84.9 - Interstitial pulmonary disease, unspecified Status: Acute Assessment and Plan: Could be related to interstitial lung disease flare -patient was given 1 dose of Solu-Medrol -will place patient on Solu-Medrol Q 6 hours -continue bronchodilators (3) CHF (congestive heart failure): Code(s): I50.9 - Heart failure, unspecified Status: Acute Assessment and Plan: Chest x-ray and CT chest show pulmonary edema and/or pneumonia -elevated proBNP 98880 -will diurese patient with a small dose of Lasix -echocardiogram has been ordered (4) Essential (primary) hypertension: Code(s): I10 - Essential (primary) hypertension Status: Acute Assessment and Plan: Will hold all antihypertensives as patient is on on mechanical ventilation and sedation (5) Type 2 diabetes mellitus without complications: Code(s): E11.9 - Type 2 diabetes mellitus without complications Status: Acute Assessment and Plan: Accu-Cheks and sliding scale insulin -will check hemoglobin A1c (6) Chronic kidney disease, stage 3: Code(s): N18.30 - Chronic kidney disease, stage 3 unspecified Status: Acute Assessment and Plan: Patient has a history of chronic kidney disease, unknown baseline -will monitor urine output, renal function electrolytes (7) Mechanical heart valve present: Code(s): Z95.2 - Presence of prosthetic heart valve Status: Acute Assessment and Plan: Patient has a mechanical aortic valve on Coumadin -according to she does not have her PT/INR checked regularly -INR was 4.5 this admission -will hold Coumadin for today -check PT INR in a.m. and will restart Coumadin if appropriate (8) Encephalopathy: Code(s): G93.40 - Encephalopathy, unspecified Status: Acute Assessment and Plan: Most likely related hypercapnic respiratory failure secondary to CO2 retention -will treat underlying cause -CT brain showed old infarcts involving the right basal ganglia, anterior limb, right internal capsule of, right parietal lobe (9) Electrolyte imbalance: Code(s): E87.8 - Other disorders of electrolyte and fluid balance, not elsewhere classified Status: Acute Assessment and Plan: Hyperkalemia could be related to acidosis -have repeated BMP now -if potassium remains elevated will treat Plan DVT prophylaxis: On Coumadin therapeutic INR Stress ulcer prophylaxis: Protonix Nutrition: NPO for now, will start tube feeds in a.m. Code Status: Full code Critical Care Time Spent: 54 minutes Discussed with , Delta CUELLAR and updated with patient's condition,
--- NOTE | 2023-09-28 15:20 | PM.IMHP ---
H&P: HPI History of Present Illness Date/Time: 09/28/23 15:20 Chief Complaint: Altered mental status. Narrative: This is a 73-year-old female with history of stroke, coronary artery disease, congestive heart failure, status post mechanical aortic valve replacement on warfarin, paroxysmal atrial fibrillation, chronic interstitial lung disease, hypertension, hyperlipidemia, type 2 diabetes mellitus, chronic kidney disease, anemia, and anxiety who presented to the emergency department via EMS from home for evaluation of altered mental status. All of the following history is obtained via a review of her EMR as well as information provided by her family members as she is currently sedated and intubated on mechanical ventilation. She was started on Bactrim on 09/24/2023 for suspected urinary tract infection. She has not been eating or drinking much and has become increasingly weak. Over the past 24 hours she has been somnolent and today was difficult to arouse prompting a call to 911. There are no reports of fever, vomiting, or diarrhea. In the ED: On EMS arrival her SpO2 was 68% on room air and she arrived to the ER on a 100% non-rebreather mask. She has been afebrile since arrival with stable blood pressures. Labs were significant for WBC count of 10.8, hemoglobin 9.6, MCV 100.6, platelet 293, INR 4.6, sodium 140, potassium 5.4, BUN 61, creatinine 2.20, glucose 150, proBNP 61477. Urine is positive for 1+ protein and trace ketones. She was negative for influenza, RSV, and COVID. Head CT showed no acute findings. CT of the chest, abdomen, and pelvis showed diffuse lung disease, likely moderate pulmonary edema, moderate size right and small left pleural effusions, small volume ascites, and gallbladder distension. Initial ABG showed a pH of 7.196, pCO2 98.9, PO2 97.6, bicarb 37.4. She was intubated after repeat blood gas did not show significant improvement. She was given cefepime, vancomycin, furosemide, magnesium sulfate, and DuoNeb and she is being admitted in this setting for further treatment. Review of Systems Review of Systems: Unable to obtain given clinical condition. [facility] Past Medical History Medical History (Updated 09/28/23 @ 23:52 by Edelmira Mock PA-C) Anxiety Cerebrovascular accident Chronic anticoagulation Chronic interstitial lung disease Chronic kidney disease, stage 3 Congestive heart failure Coronary artery disease Essential hypertension Gastroesophageal reflux disease Paroxysmal atrial fibrillation Shingles Type 2 diabetes mellitus Surgical History Surgical History (Updated 09/28/23 @ 15:32 by Edelmira Mock PA-C) History of coronary artery bypass graft History of hysterectomy History of mechanical aortic valve replacement Family History Family History Mother Patient's mother is Family history of coronary artery disease, Onset Age: 65 Father Patient's father is Other Diabetes mellitus Family history of cardiovascular disease Hypertension Social History Social History (Updated 09/28/23 @ 15:32 by Edelmira Mock PA-C) Social History: Surrogate medical decision maker: Delta Kierakijeremiah, spouse. Code status: Full code. Smoking status: Never smoker Second hand tobacco smoke exposure: No Alcohol intake: never Substance use: never Substance use type: does not use Do You Feel Safe in your Home?: Yes Lack of Transportation: No Lack of Food: Never True Current Housing: I Have Housing Concerned About Future Housing: No Difficulty Paying Gas/Electric Bills: No Difficulty Paying for Meds: No Currently Unemployed: No Education: High School Diploma/GED Difficulty w/ Childcare or Family Care: No Spiritual care concerns: No Meds Home Medications and Allergies Home Medications Medication Instructions Recorded Confirmed Type allopurinol 300 mg tablet 300 mg P
[2023-09-28 15:23] LABS: MRSA (PCR) NOT DETECTED (NOT DETECTE)
[2023-09-28] MEDS: MIDAZOLAM 100MG/NS 100ML(*CRX) 100 MG/100 ML BAG IV CONT (15:35)
[2023-09-28 16:16] LABS: Base Excess ABG 14.4 mEq/l (+/-2.0); Fractional Inspired Oxygen 100 %; HCO3 ABG 39.4 mEq/l (22.0-26.0); Oxygen Content ABG 14.2 %vol (16.0-22.0); Oxygen Saturation ABG 99.9 % (95.0-100.0); Oxyhemoglobin 99.6 % THb (90.0-100.0); PCO2 ABG 52.7 mmHg (35.0-45.0); PO2 ABG 516.3 mmHg (80.0-100.0); PO2 FiO2 Ratio Arterial Blood 5.16 %; Total Hemoglobin 9.1 g/dL (12.0-18.0); pH ABG 7.492 (7.350-7.450)
[2023-09-28 16:19] LABS: Arterial Blood Gas Vent Mode CMV; Arterial Blood Gas Ventilator rate 20 /MIN; Device VENTILATOR; Site Drawn RIGHT BRACHIAL
[2023-09-28 16:20] LABS: Arterial Blood Gas PEEP 8 cmH2O; Arterial Blood Gas Tidal Volume 300 ml
[2023-09-28] MEDS: FENTANYL 2,500MCG/NS250ML(*CRX 2,500 MCG/250 ML BAG IV CONT (16:31)
--- NOTE | 2023-09-28 16:45 | PCRCNOTE ---
RT was notified by RN that patient SpO2 dropped to 80s. RT assessed patient. Patient SpO2 was 82% on Vent peep 5 35%. RT adjusted peep and FiO2 to keep SpO2 > 92%. RT notified Dr. Pearson what happens and reported ABG results.
--- NOTE | 2023-09-28 16:52 | PCRCNOTE ---
Window of time for administration has passed. See next scheduled administration.
[2023-09-28 17:06] LABS: Lactic Acid Reflex 1.9 mmol/L (0.7-2.0); Lipase 187 U/L (23-300); Magnesium 2.9 mg/dL (1.6-2.3); Phosphorus 3.4 mg/dL (2.5-4.5)
[2023-09-28 17:12] LABS: Blood Urea Nitrogen 60 mg/dL (7-17); Calcium 8.4 mg/dL (8.4-10.2); Carbon Dioxide > 40 mmol/L (22-30); Chloride 94 mmol/L (98-107); Creatine Kinase 37 U/L (30-135); Estimated CRCL calculation 14 ml/min; Estimated Glomerular Filt Rate 24; Glucose 153 mg/dL (65-110); Potassium 4.9 mmol/L (3.4-5.0); Sodium 140 mmol/L (137-145)
[2023-09-28] MEDS: VANCOMYCIN 500 MG/NS 100 ML 500 MG/100 ML BAG 100 MG IVPB (17:24)
[2023-09-28 17:25] LABS: Triglycerides 118 mg/dL (<150)
[2023-09-28] MEDS: ALBUMIN HUMAN 25% 25 GM/100 ML 100 ML IVPB (17:33)
[2023-09-28] MEDS: methylPREDNISolone SOD SUCC 40 MG VIAL IV PUSH (17:34)
[2023-09-28 17:43] LABS: Glucose Point of Care 141 mg/dl (65-105)
[2023-09-28 17:56] LABS: Procalcitonin 0.1 ng/mL
[2023-09-28 18:06] LABS: Creatinine Urine 40.2 mg/dL
[2023-09-28 18:08] LABS: Potassium Urine Random 62.2 meq/L; Sodium Urine Random 75 meq/L
[2023-09-28] MEDS: DOXYCYCLINE 100 MG/NS 100 ML 100 MG/100 ML BAG IVPB (18:26)
[2023-09-28] MEDS: PANTOPRAZOLE SODIUM IV 40 MG VIAL IV PUSH (18:26)
[2023-09-28 18:41] LABS: Eosinophil Urine None Seen % (None Seen); Urine Eos QC 2nd Tech Confirmed
[2023-09-28 19:03] LABS: MRSA (PCR) NOT DETECTED (NOT DETECTE)
[2023-09-28] MEDS: MINERAL OIL/WHITE PETROLATUM OINTMENT 1 APPLIC EACH EYE (20:08)
[2023-09-28] MEDS: IPRATROPIUM 0.5 MG/ALBUTEROL SULFATE 2.5 MG AMPUL.NEB 3 ML INHALATION (21:03)
[2023-09-29] VITALS (61 sets, daily range): BP systolic 91–121; BP diastolic 43–61; PULSE 62–75; RESP 16–20; TEMP 36.8–37.4; O2SAT 95–99
[2023-09-29 00:20] LABS: Iron 43 ug/dL (37-170)
[2023-09-29 00:30] LABS: Glucose Point of Care 168 mg/dl (65-105)
[2023-09-29] MEDS: ALBUMIN HUMAN 25% 25 GM/100 ML 100 ML IVPB (00:30)
[2023-09-29 00:31] LABS: Percent Iron Saturation 19 % (20-50)
[2023-09-29] MEDS: methylPREDNISolone SOD SUCC 40 MG VIAL IV PUSH ×5 (00:31→23:06)
[2023-09-29 01:52] LABS: Folic Acid > 20.0 ng/mL (2.76->20)
[2023-09-29] MEDS: IPRATROPIUM 0.5 MG/ALBUTEROL SULFATE 2.5 MG AMPUL.NEB 3 ML INHALATION ×4 (02:16→20:02)
[2023-09-29 04:15] LABS: Basophils Percent Auto 0.1 % (0.2-1.2); Hematocrit 26.6 % (37.0-47.0); Hemoglobin 8.1 g/dL (12.0-15.0); Immature Granulocyte Absolute 0.03 K/mm3 (0.00-0.031); Immature Granulocyte Percent A 0.3 % (0-0.5); Mean Corpuscular HGB Conc 30.5 g/dl (32-36); Mean Corpuscular Hemoglobin 28.3 pg (26-34); Mean Platelet Volume 10.9 fl (7.4-10.4); Monocytes Absolute Auto 0.1 K/mm3 (0.1-0.6); Monocytes Percent Auto 0.9 % (2.6-8.5); Neutrophils Percent Auto 87.7 % (45.5-73.1); Nucleated Red Blood Cells Perc 0.2 % (0.0-0.2); Platelet Count Result 248 k/mm3 (150-375); Red Blood Count 2.86 M/mm3 (4.2-5.4); Red Cell Distribution Width 18.7 % (11.5-14.5); White Blood Count 9.1 K/mm3 (4.5-10.0)
[2023-09-29 04:26] LABS: INR 4.1; Partial Thromboplastin Time 44.7 Seconds (22.3-36.8); Prothrombin Time 40.2 Seconds (11.1-14.7)
[2023-09-29 04:32] LABS: Alanine Aminotransferase 22 U/L (6-35); Albumin Level 3.8 g/dL (3.5-5.1); Alkaline Phosphatase 46 U/L (38-126); Anion Gap 12 mmol/L (4-12); Aspartate Amino Transferase 33 U/L (14-36); Bilirubin,Total 0.9 mg/dL (0.2-1.3); Blood Urea Nitrogen 67 mg/dL (7-17); Carbon Dioxide 36 mmol/L (22-30); Chloride 95 mmol/L (98-107); Estimated CRCL calculation 14 ml/min; Estimated Glomerular Filt Rate 24; Glucose 169 mg/dL (65-110); Magnesium 2.9 mg/dL (1.6-2.3); Phosphorus 2.9 mg/dL (2.5-4.5); Potassium 4.6 mmol/L (3.4-5.0); Sodium 143 mmol/L (137-145)
[2023-09-29 04:34] LABS: Lactic Acid Reflex 1.9 mmol/L (0.7-2.0)
[2023-09-29 04:53] LABS: Hemoglobin A1C 6.3 % (<5.7)
[2023-09-29] MEDS: DOXYCYCLINE 100 MG/NS 100 ML 100 MG/100 ML BAG IVPB ×2 (05:00→15:29)
[2023-09-29 05:35] LABS: Alveolar/Arterial O2 Gradient 117.1 mmHg; Base Excess ABG 14.6 mEq/l (+/-2.0); Carboxyhemoglobin 0.2 % THb (0-2.0); Fractional Inspired Oxygen 50 %; HCO3 ABG 37.6 mEq/l (22.0-26.0); Methemoglobin ABG 0.2 %THb (0-1.5); Oxygen Content ABG 11.8 %vol (16.0-22.0); Oxygen Saturation ABG 99.5 % (95.0-100.0); PCO2 ABG 40.2 mmHg (35.0-45.0); PO2 ABG 194.2 mmHg (80.0-100.0); PO2 FiO2 Ratio Arterial Blood 3.88 %; Reduced Hemoglobin 0.6 %THb (0-5.0); Total Hemoglobin 8.1 g/dL (12.0-18.0)
[2023-09-29 05:36] LABS: Arterial Blood Gas Ventilator rate 20 /MIN; Device VENTILATOR; Site Drawn RIGHT BRACHIAL; pH ABG 7.589 (7.350-7.450)
[2023-09-29 05:37] LABS: Arterial Blood Gas PEEP 8 cmH2O; Arterial Blood Gas Tidal Volume 300 ml; Arterial Blood Gas Vent Mode CMV
--- NOTE | 2023-09-29 07:00 | PCRCNOTE ---
Patient remained on 50% FiO2 all night per Dr's orders. This RT decreased FiO2 to 40% @ 0520 due to PaO2 of 194 on morning abg.
[2023-09-29] MEDS: PANTOPRAZOLE SODIUM IV 40 MG VIAL IV PUSH (08:12)
[2023-09-29] MEDS: MINERAL OIL/WHITE PETROLATUM OINTMENT 1 APPLIC EACH EYE ×2 (08:13→19:39)
--- NOTE | 2023-09-29 08:31 | WPDINTPN ---
Progress Note: A&P Assessment and Plan (1) Acute hypercapnic respiratory failure: Code(s): J96.02 - Acute respiratory failure with hypercapnia Status: Acute Assessment and Plan: 09/27: Patient presented with altered mental status, respiratory distress was found to be an acute hypercapnic respiratory failure, not amenable to BiPAP, was successfully intubated in the ER on 09/28/2023 -acute respiratory failure could be related to interstitial lung disease flare, CHF exacerbation - In the ER patient initial ABG showed pH of 7.19, pCO2 of 98, PO2 of 97 on 2 L nasal cannula, Bicarb of 37, pCO2 -patient was placed on BiPAP, repeat ABG showed pH of 7.13, pCO2 of 119, PO2 of 144 on BiPAP 18/5, 80% FiO2 Currently patient on CMV mode of ventilation with low tidal volume strategy for me to avoid barotrauma and volume trauma -ABGs and chest x-ray reviewed, ventilator adjusted -continue bronchodilators 09/27: Continue ceftriaxone, doxycycline and vancomycin (will deescalate when cultures are negative) -continue fentanyl and Versed infusion, maintain a RASS of 0 to - 2, daily a SBT and SAT Repeat ABGs (2) Interstitial lung disease: Code(s): J84.9 - Interstitial pulmonary disease, unspecified Status: Acute Assessment and Plan: Could be related to interstitial lung disease flare -patient was given 1 dose of Solu-Medrol -continue Solu-Medrol 40 mg IV Q 6 hours -continue bronchodilators (3) CHF (congestive heart failure): Code(s): I50.9 - Heart failure, unspecified Status: Acute Assessment and Plan: Chest x-ray and CT chest show pulmonary edema and/or pneumonia -elevated proBNP [id number] -chest x-ray with possible pulmonary edema versus pneumonia, with borderline blood pressures will hold diuresis for now, limit IV fluids -echocardiogram has been ordered (4) Essential (primary) hypertension: Code(s): I10 - Essential (primary) hypertension Status: Acute Assessment and Plan: Will hold all antihypertensives as patient is on on mechanical ventilation and sedation, with borderline blood pressure (5) Type 2 diabetes mellitus without complications: Code(s): E11.9 - Type 2 diabetes mellitus without complications Status: Acute Assessment and Plan: Continue Accu-Cheks and sliding scale insulin -hemoglobin A1c is 6.3 this admission (6) Chronic kidney disease, stage 3: Code(s): N18.30 - Chronic kidney disease, stage 3 unspecified Status: Acute Assessment and Plan: Patient has a history of chronic kidney disease, unknown baseline -adequate urine output with improvement in creatinine, -will monitor urine output, renal function electrolytes (7) Mechanical heart valve present: Code(s): Z95.2 - Presence of prosthetic heart valve Status: Acute Assessment and Plan: Patient has a mechanical aortic valve on Coumadin -according to she does not have her PT/INR checked regularly -INR was 4.5 this admission -will restart Coumadin today as patient has not received it for the last 2 days. -will target INR between 2.5-3.5. -daily PT INR (8) Encephalopathy: Code(s): G93.40 - Encephalopathy, unspecified Status: Acute Assessment and Plan: Most likely related hypercapnic respiratory failure secondary to CO2 retention -will treat underlying cause -CT brain showed old infarcts involving the right basal ganglia, anterior limb, right internal capsule of, right parietal lobe (9) Electrolyte imbalance: Code(s): E87.8 - Other disorders of electrolyte and fluid balance, not elsewhere classified Status: Acute Assessment and Plan: Hyperkalemia has resolved -all other electrolytes within normal limits Plan DVT prophylaxis: On Coumadin therapeutic INR Stress ulcer prophylaxis: Protonix Nutrition: Will start tube feeds Code Status: Full code Critical Care Time Spent: 35 minutes Discussed with
[2023-09-29] MEDS: ATORVASTATIN 40 MG TABLET PO (10:16)
[2023-09-29 12:08] LABS: Glucose Point of Care 162 mg/dl (65-105)
--- NOTE | 2023-09-29 14:22 | PM.IMPN ---
Progress Note: A&P Assessment and Plan (1) Acute hypercapnic respiratory failure: Code(s): J96.02 - Acute respiratory failure with hypercapnia Status: Acute Assessment and Plan: Asthma exacerbation versus pneumonia versus interstitial lung disease exacerbation versus pulmonary edema. at bedside noted history of asthma, but no COPD no history of smoking. Patient failed BiPAP and currently intubated. Initial ABG 7.19/98/97 prior to intubation. Continue bronchodilators and steroids, continue Rocephin doxycycline vancomycin. Monitor cultures Sedation protocol on daily weaning trial per life skills worker. Video Editor following a period (2) Interstitial lung disease: Code(s): J84.9 - Interstitial pulmonary disease, unspecified Status: Acute Assessment and Plan: Continue steroids and monitor. (3) CHF (congestive heart failure): Code(s): I50.9 - Heart failure, unspecified Status: Acute Assessment and Plan: Chest x-ray and CT chest show pulmonary edema and/or pneumonia -elevated proBNP 51111 Echo pending Titrate diuresis contingent on clinical course. (4) Essential (primary) hypertension: Code(s): I10 - Essential (primary) hypertension Status: Acute Assessment and Plan: Titrating medications with clinical course. (5) Type 2 diabetes mellitus without complications: Code(s): E11.9 - Type 2 diabetes mellitus without complications Status: Acute Assessment and Plan: Continue Accu-Cheks and sliding scale insulin -hemoglobin A1c is 6.3 this admission (6) Chronic kidney disease, stage 3: Code(s): N18.30 - Chronic kidney disease, stage 3 unspecified Status: Acute Assessment and Plan: Monitor inputs and outputs. (7) Mechanical heart valve present: Code(s): Z95.2 - Presence of prosthetic heart valve Status: Acute Assessment and Plan: Patient has a mechanical aortic valve on Coumadin -according to she does not have her PT/INR checked regularly -INR was 4.5 this admission -will restart Coumadin today as patient has not received it for the last 2 days. -will target INR between 2.5-3.5. -daily PT INR (8) Encephalopathy: Code(s): G93.40 - Encephalopathy, unspecified Status: Acute Assessment and Plan: Most likely related hypercapnic respiratory failure secondary to CO2 retention Continue above care. CT head no acute findings. (9) Electrolyte imbalance: Code(s): E87.8 - Other disorders of electrolyte and fluid balance, not elsewhere classified Status: Acute Assessment and Plan: Hyperkalemia has resolved Plan DVT prophylaxis: On Coumadin therapeutic INR Stress ulcer prophylaxis: Protonix Nutrition: Will start tube feeds Code Status: Full code This dictation may have been done utilizing a voice recognition system. Attempts have been made to correct errors. However, there may be uncorrected grammatical, spelling, and recognitions errors present. Subjective Date/time seen: 09/29/23 14:22 Interval history: patient intubated and intubated at bedside Review of Systems Review of Systems: Unable to obtain given clinical condition. ROS unobtainable: Yes unobtainable due to endotracheal tube, unobtainable due to medical condition and unobtainable due to mental status Exam Narrative: General: Cachectic female of petite stature, currently in no acute distress HEENT:? Pupils are equal and reactive, sclerae is clear, ETT in place Neck:? Supple Respiratory:? Coarse breath sounds with rales bilaterally and diffuse, decreased air entry RT > LT, no wheezing Cardiac:? S1-S2 normal, regular rate and rhythm Abdomen:? Soft, nontender, nondistended, normoactive bowel sounds Extremities:? 1+ pitting edema bilateral lower extremities, palpable pedal pulses Neuro:? Intubated and sedated, does not open her eyes or follow simple commands, withdra
[2023-09-29] MEDS: INSULIN ASPART (*BKC) 100 UNITS/ML SUB-Q ×2 (17:11→23:06)
[2023-09-29 17:12] LABS: Glucose Point of Care 209 mg/dl (65-105)
[2023-09-29] MEDS: ASPIRIN 81 MG ENTERIC TABLET PO (17:12)
[2023-09-29] MEDS: WARFARIN (*PBKC) 2.5 MG TABLET FEED TUBE (17:12)
[2023-09-29 23:05] LABS: Glucose Point of Care 205 mg/dl (65-105)
[2023-09-30] VITALS (33 sets, daily range): BP systolic 106–138; BP diastolic 51–73; PULSE 61–74; RESP 14–18; TEMP 36.7–37.3; O2SAT 94–96; BMI 18.6
--- NOTE | 2023-09-30 | ECHO_ITS ---
Patient Info Name: Allison Ji Age: 73 years : 1950 Gender: Female Ht: 60 in Wt: 89 lbs BSA: 1.30 m2 HR: 65 bpm BP: 112 / 53 mmHg Heart Rhythm: Sinus Rhythm Technical Quality: Good Exam Date: 09/30/2023 9:59 AM Exam Location: Echo Lab Patient Status: Inpatient Admit Date: 09/28/2023 Staff Ordering Physician: Devon Pearson MD Washroom Operator: Spring Edmond RDCS Attending Provider: Rufina Burch MD Referring Physician: Lili BOO; Exam Type: CA echo doppler color flow Study Info Indications - rule out CHF Complete two-dimensional, color flow and Doppler transthoracic echocardiogram is performed. Summary 1. Complete two-dimensional, color flow and Doppler transthoracic echocardiogram is performed. 2. Left ventricular chamber dimension is normal. 3. Left ventricular systolic function is preserved, estimated at 50-55%. 4. The left ventricular diastolic function is abnormal. 5. E/e' 27 is elevated. 6. Mechanical aortic valve. 7. There is trace regurgitation of the mechanical aortic valve. 8. The mitral valve has mildly calcified annulus. 9. There is mild to moderate mitral valve regurgitation. 10. There is mild tricuspid valve regurgitation. 11. Mild pulmonary hypertension, estimated pulmonary arterial systolic pressure is 44 mmHg. 12. There is trace pulmonic regurgitation. Left Ventricle E/e' 27 is elevated. Left ventricular chamber dimension is normal. Left ventricular systolic function is preserved, estimated at 50-55%. The left ventricular diastolic function is abnormal. Right Ventricle Right ventricular systolic function is normal and with normal TAPSE 2.1 cm. Right ventricular chamber dimension is normal. Left Atria Left atrial chamber dimension is normal. Right Atria Right atrial chamber dimension is normal. Aortic Valve There is no mechanical aortic valve stenosis based on valve area and gradients. Mechanical aortic valve. The mechanical aortic valve is not well visualized. There is trace regurgitation of the mechanical aortic valve. Pulmonic Valve There is trace pulmonic regurgitation. Mitral Valve The mitral valve has mildly calcified annulus. There is no mitral valve stenosis. There is mild to moderate mitral valve regurgitation. Tricuspid Valve There is mild tricuspid valve regurgitation. Mild pulmonary hypertension, estimated pulmonary arterial systolic pressure is 44 mmHg. Pericardium/Pleural There is no pericardial effusion. Inferior Vena Cava Normal inferior vena cava with >50% collapse upon inspiration consistent with normal right atrial pressure, 5 mmHg. Aorta The aortic root size at the sinus of Valsalva is normal. Left Ventricular Outflow Tract Name Value Normal LVOT 2D LVOT Diameter 1.7 cm LVOT Doppler LVOT Peak Gradient 14 mmHg LVOT Mean Gradient 8 mmHg LVOT VTI 44 cm LVOT VTI/AV VTI Ratio 0.8 LVOT Stroke Volume 97 ml LVOT CO 6.9 l/min LVOT CI 5.3 l/min/m2 Pulmonic Valve
[2023-09-30] MEDS: IPRATROPIUM 0.5 MG/ALBUTEROL SULFATE 2.5 MG AMPUL.NEB 3 ML INHALATION ×4 (02:06→20:15)
[2023-09-30 04:02] LABS: Basophils Percent Auto 0.1 % (0.2-1.2); Hematocrit 25.9 % (37.0-47.0); Hemoglobin 8.4 g/dL (12.0-15.0); Immature Granulocyte Absolute 0.15 K/mm3 (0.00-0.031); Immature Granulocyte Percent A 0.6 % (0-0.5); Lymphocytes Absolute Auto 1.01 K/mm3 (0.9-3.2); Lymphocytes Percent Auto 4.2 % (18.3-44.2); Mean Corpuscular HGB Conc 32.4 g/dl (32-36); Mean Corpuscular Hemoglobin 29.9 pg (26-34); Mean Corpuscular Volume 92.2 fl (80-100); Mean Platelet Volume 10.3 fl (7.4-10.4); Monocytes Absolute Auto 0.3 K/mm3 (0.1-0.6); Monocytes Percent Auto 1.1 % (2.6-8.5); Neutrophils Absolute Auto 22.5 K/mm3 (1.3-6.7); Nucleated Red Blood Cells Perc 0.1 % (0.0-0.2); Platelet Count Result 248 k/mm3 (150-375); Red Blood Count 2.81 M/mm3 (4.2-5.4); Red Cell Distribution Width 19.5 % (11.5-14.5)
[2023-09-30 04:13] LABS: INR 3.9; Prothrombin Time 38.7 Seconds (11.1-14.7)
[2023-09-30 04:18] LABS: Ammonia < 9 umol/L (9-30)
[2023-09-30 04:19] LABS: Lactic Acid Reflex 1.2 mmol/L (0.7-2.0)
[2023-09-30 04:23] LABS: Alanine Aminotransferase 19 U/L (6-35); Albumin Level 3.6 g/dL (3.5-5.1); Alkaline Phosphatase 49 U/L (38-126); Anion Gap 9 mmol/L (4-12); Aspartate Amino Transferase 28 U/L (14-36); Bilirubin,Total 0.5 mg/dL (0.2-1.3); Blood Urea Nitrogen 93 mg/dL (7-17); CRP < 0.5 mg/dL (<1.0); Calcium 8.6 mg/dL (8.4-10.2); Carbon Dioxide 36 mmol/L (22-30); Chloride 96 mmol/L (98-107); Estimated CRCL calculation 12 ml/min; Estimated Glomerular Filt Rate 17; Glucose 194 mg/dL (65-110); Phosphorus 4.6 mg/dL (2.5-4.5); Potassium 4.8 mmol/L (3.4-5.0); Sodium 141 mmol/L (137-145)
[2023-09-30 04:26] LABS: Vancomycin Random 6.7 ug/mL (10-20)
[2023-09-30 04:29] LABS: Anisocytosis 1+; Hypochromasia 2+; Platelet Estimate Adequate (Adequate); Schistocytes None Seen; Target Cells 1+
[2023-09-30] MEDS: DOXYCYCLINE 100 MG/NS 100 ML 100 MG/100 ML BAG IVPB ×2 (04:55→15:17)
[2023-09-30 05:03] LABS: Glucose Point of Care 220 mg/dl (65-105)
[2023-09-30] MEDS: methylPREDNISolone SOD SUCC 40 MG VIAL IV PUSH (05:03)
[2023-09-30] MEDS: INSULIN ASPART (*BKC) 100 UNITS/ML SUB-Q ×3 (05:03→17:14)
[2023-09-30 05:13] LABS: Alveolar/Arterial O2 Gradient 102.1 mmHg; Base Excess ABG 11.5 mEq/l (+/-2.0); Carboxyhemoglobin 0.4 % THb (0-2.0); Fractional Inspired Oxygen 30 %; HCO3 ABG 35.4 mEq/l (22.0-26.0); Methemoglobin ABG 0.2 %THb (0-1.5); Oxygen Content ABG 10.7 %vol (16.0-22.0); Oxygen Saturation ABG 93.2 % (95.0-100.0); Oxyhemoglobin 92.1 % THb (90.0-100.0); PCO2 ABG 44.1 mmHg (35.0-45.0); Reduced Hemoglobin 7.3 %THb (0-5.0); Total Hemoglobin 8.2 g/dL (12.0-18.0)
[2023-09-30 05:15] LABS: Device VENTILATOR; Modified Allen's Test Pass; Site Drawn RIGHT RADIAL; pH ABG 7.522 (7.350-7.450)
[2023-09-30 05:16] LABS: Arterial Blood Gas PEEP 5 cmH2O; Arterial Blood Gas Vent Mode CMV; Arterial Blood Gas Ventilator rate 16 /MIN
[2023-09-30 05:17] LABS: Arterial Blood Gas Tidal Volume 300 ml
[2023-09-30] MEDS: LACTATED RINGERS 1,000 ML 100 ML IV CONT (08:22)
[2023-09-30] MEDS: PANTOPRAZOLE SODIUM IV 40 MG VIAL IV PUSH (08:22)
[2023-09-30] MEDS: methylPREDNISolone SOD SUCC 40 MG VIAL 60 MG IV PUSH (08:22)
[2023-09-30] MEDS: VANCOMYCIN 500 MG/NS 100 ML 500 MG/100 ML BAG 100 MG IVPB (08:22)
[2023-09-30] MEDS: ATORVASTATIN 40 MG TABLET PO (08:22)
[2023-09-30] MEDS: MINERAL OIL/WHITE PETROLATUM OINTMENT 1 APPLIC EACH EYE ×2 (08:23→20:32)
--- NOTE | 2023-09-30 09:33 | WPDINTPN ---
Progress Note: A&P Assessment and Plan (1) Acute hypercapnic respiratory failure: Code(s): J96.02 - Acute respiratory failure with hypercapnia Status: Acute Assessment and Plan: 09/27: Patient presented with altered mental status, respiratory distress was found to be an acute hypercapnic respiratory failure, not amenable to BiPAP, was successfully intubated in the ER on 09/28/2023 -acute respiratory failure could be related to interstitial lung disease flare, CHF exacerbation - In the ER patient initial ABG showed pH of 7.19, pCO2 of 98, PO2 of 97 on 2 L nasal cannula, Bicarb of 37, pCO2 -patient was placed on BiPAP, repeat ABG showed pH of 7.13, pCO2 of 119, PO2 of 144 on BiPAP 18/5, 80% FiO2 Currently patient on CMV mode of ventilation with low tidal volume strategy to avoid barotrauma and volume trauma -ABGs and chest x-ray reviewed, ventilator adjusted -continue bronchodilators 09/27: Continue ceftriaxone, doxycycline and vancomycin (will deescalate when cultures are negative) -continue fentanyl and Versed infusion, maintain a RASS of 0 to - 2, daily a SBT and SAT Repeat ABGs (2) Interstitial lung disease: Code(s): J84.9 - Interstitial pulmonary disease, unspecified Status: Acute Assessment and Plan: Shortness of breath, hypercapnic respiratory failure could be related to interstitial lung disease flare -patient was given 1 dose of Solu-Medrol -decrease Solu-Medrol to 60 mg IV q.day (patient was taking prednisone at home) -continue bronchodilators (3) CHF (congestive heart failure): Code(s): I50.9 - Heart failure, unspecified Status: Acute Assessment and Plan: Chest x-ray and CT chest show pulmonary edema and/or pneumonia -elevated proBNP 20832 -chest x-ray with possible pulmonary edema versus pneumonia, with borderline blood pressures will hold diuresis for now, limit IV fluids -echocardiogram has been ordered (4) Essential (primary) hypertension: Code(s): I10 - Essential (primary) hypertension Status: Acute Assessment and Plan: Will hold all antihypertensives as patient is on on mechanical ventilation and sedation, with borderline blood pressure (5) Type 2 diabetes mellitus without complications: Code(s): E11.9 - Type 2 diabetes mellitus without complications Status: Acute Assessment and Plan: Continue Accu-Cheks and sliding scale insulin -hemoglobin A1c is 6.3 this admission (6) Chronic kidney disease, stage 3: Code(s): N18.30 - Chronic kidney disease, stage 3 unspecified Status: Acute Assessment and Plan: Patient has a history of chronic kidney disease, unknown baseline -urine output has been slow, elevated BUN and creatinine, on gently hydrate patient for 1 L IV fluids at 75 mL/hr -nephrology has been consulted -09/28/2023 renal ultrasound : Mild atrophy of right kidney, no hydronephrosis, small volume ascites -urine lytes not renal, urine eosinophils were negative, CK level was 37 -will monitor urine output, renal function electrolytes (7) Mechanical heart valve present: Code(s): Z95.2 - Presence of prosthetic heart valve Status: Acute Assessment and Plan: Patient has a mechanical aortic valve on Coumadin -according to she does not have her PT/INR checked regularly -INR was 4.5 this admission -INR is therapeutic will continue Coumadin per home dose -will target INR between 2.5-3.5. 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
--- NOTE | 2023-09-30 09:41 | PM.CNNEP ---
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 follow trend of repeat labs and UOP (2) Chronic kidney disease, stage 3: Code(s): N18.30 - Chronic kidney disease, stage 3 unspecified Status: Chronic Assessment and Plan: has been present for the last few years (per ) presumably due to hypertension, diabetes, vascular disease, and age-related change noted creatinine of 1.13mg/dl in February 2023 (GFR ~ 52cc/min) (3) Acute hypercapnic respiratory failure: Code(s): J96.02 - Acute respiratory failure with hypercapnia Status: Acute Assessment and Plan: as noted on presentation with AMS no improvement with attempts at BiPAP required intubation and mechanical ventilation multiple possible etiologies: known interstitial lung disease CHF infection/pneumonia(?) on steroids and bronchodilators continue ventilator support (4) Interstitial lung disease: Code(s): J84.9 - Interstitial pulmonary disease, unspecified Status: Chronic Assessment and Plan: on steroids and bronchodilators follow respiratory statis (5) CHF (congestive heart failure): Code(s): I50.9 - Heart failure, unspecified Status: Acute Assessment and Plan: admission CXR as well as CT chest demonstrate pulmonary edema and/[place] [address] initially on diuretics Echo pending given #1, holding further diuretics (6) Essential (primary) hypertension: Code(s): I10 - Essential (primary) hypertension Status: Acute Assessment and Plan: reasonable control at this time holding anti-HTN medications follow trend of hemodynamics (7) Mechanical heart valve present: Code(s): Z95.2 - Presence of prosthetic heart valve Status: Acute Assessment and Plan: mechanical aortic valve and on anticoagulation follow PT/INT continue coumadin (8) Type 2 diabetes mellitus without complications: Code(s): E11.9 - Type 2 diabetes mellitus without complications Status: Acute Assessment and Plan: follow accu-cheks glycemic control per nutritional services host/hospitalist Long extensive discussion (greater than 20 minutes) with the patient's at bedside regarding her declining kidney function in association with suboptimal urine output. I voiced my concerns that she may need/require renal replacement therapy/dialysis if her kidney function continues to deteriorate or she if she runs into issues/problems with volume overload unresponsive to diuretics, worsening metabolic acidosis, critical electrolyte abnormalities, or uremia. He appeared to voice understanding. Case discussed with Dr. Pearson I will continue follow the patient with you while she remains hospitalized and make further recommendations as deemed necessary. Thank you for allowing me to participate in the care of this patient. History of Present Illness Reason for Consult Consult date: 09/30/23 Reason for consult: acute renal failure (on chronic kidney disease) Chief Complaint Chief complaint: acuute hypercapnic respiratory failure History of Present Illness Narrative: All the information that I have obtained is from review of the electronic medical record as well as discussion with the physician/nurses involved in the patient's care as
--- NOTE | 2023-09-30 09:41 | P.CONNP_ITS ---
Assessment and Plan Assessment and plan (1) ED (acute kidney injury): Code(s): N17.9 - Acute kidney failure, unspecified Status: Acute Assessment and Plan: * elevated on admission with ongoing worsening * still making some urine at this * complicated by mild hyperkalemia on admission as well * etiology likely multifactorial: * fluctuating hemodynamics * possible prerenal factors * medications (bactrim, losartan, diuretics) * CHF * Hypoxia * other(?) * evaluation to date noted: * renal ultrasound with right kidney atrophy * urine eosinophils negative * urine electrolytes non-prerenal * CPK okay * 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 * follow trend of repeat labs and UOP (2) Chronic kidney disease, stage 3: Code(s): N18.30 - Chronic kidney disease, stage 3 unspecified Status: Chronic Assessment and Plan: * has been present for the last few years (per ) * presumably due to hypertension, diabetes, vascular disease, and age-related change * noted creatinine of 1.13mg/dl in February 2023 (GFR ~ 52cc/min) (3) Acute hypercapnic respiratory failure: Code(s): J96.02 - Acute respiratory failure with hypercapnia Status: Acute Assessment and Plan: * as noted on presentation with AMS * no improvement with attempts at BiPAP * required intubation and mechanical ventilation * multiple possible etiologies: * known interstitial lung disease * CHF * infection/pneumonia(?) * on steroids and bronchodilators * continue ventilator support (4) Interstitial lung disease: Code(s): J84.9 - Interstitial pulmonary disease, unspecified Status: Chronic Assessment and Plan: * on steroids and bronchodilators * follow respiratory statis (5) CHF (congestive heart failure): Code(s): I50.9 - Heart failure, unspecified Status: Acute Assessment and Plan: * admission CXR as well as CT chest demonstrate pulmonary edema and/or pneumonia * [place] [address] * initially on diuretics * Echo pending * given #1, holding further diuretics (6) Essential (primary) hypertension: Code(s): I10 - Essential (primary) hypertension Status: Acute Assessment and Plan: * reasonable control at this time * holding anti-HTN medications * follow trend of hemodynamics (7) Mechanical heart valve present: Code(s): Z95.2 - Presence of prosthetic heart valve Status: Acute Assessment and Plan: * mechanical aortic valve and on anticoagulation * follow PT/INT * continue coumadin (8) Type 2 diabetes mellitus without complications: Code(s): E11.9 - Type 2 diabetes mellitus without complications Status: Acute Assessment and Plan: * follow accu-cheks * glycemic control per remedial masseur/hospitalist Long extensive discussion (greater than 20 minutes) with the patient's at bedside regarding her declining kidney function in association with suboptimal urine output. I voiced my concerns that she may need/require renal replacement therapy/dialysis if her kidney function continues to deteriorate or she if she runs into issues/problems with volume overload unresponsive to diuretics, worsening metabolic acidosis, critical electrolyte abnormalities, or uremia. He appeared to voice understanding. Case discussed with Dr. Pearson I will continue follow the patient with you while she remains hospitalized and make further recommendations as deemed necessary.
--- NOTE | 2023-09-30 11:39 | PM.IMPN ---
Progress Note: A&P Assessment and Plan (1) Acute hypercapnic respiratory failure: Code(s): J96.02 - Acute respiratory failure with hypercapnia Status: Acute Assessment and Plan: Asthma exacerbation versus pneumonia versus interstitial lung disease exacerbation versus pulmonary edema. at bedside noted history of asthma, but no COPD no history of smoking. Patient failed BiPAP and currently intubated. Initial ABG 7.19/98/97 prior to intubation. Continue bronchodilators and steroids, continue Rocephin doxycycline vancomycin. Monitor cultures Sedation protocol on daily weaning trial per food analyst. Pet Resort Concierge following (2) Interstitial lung disease: Code(s): J84.9 - Interstitial pulmonary disease, unspecified Status: Chronic Assessment and Plan: Continue steroids and monitor. (3) CHF (congestive heart failure): Code(s): I50.9 - Heart failure, unspecified Status: Acute Assessment and Plan: Echo pending Titrate diuresis contingent on clinical course. (4) Essential (primary) hypertension: Code(s): I10 - Essential (primary) hypertension Status: Acute Assessment and Plan: Will hold all antihypertensives as patient is on on mechanical ventilation and sedation, with borderline blood pressure (5) Type 2 diabetes mellitus without complications: Code(s): E11.9 - Type 2 diabetes mellitus without complications Status: Acute Assessment and Plan: Continue Accu-Cheks and sliding scale insulin -hemoglobin A1c is 6.3 this admission (6) Chronic kidney disease, stage 3: Code(s): N18.30 - Chronic kidney disease, stage 3 unspecified Status: Acute Assessment and Plan: Patient has a history of chronic kidney disease, unknown baseline Monitor inputs and outputs. monitor renal function (7) Mechanical heart valve present: Code(s): Z95.2 - Presence of prosthetic heart valve Status: Acute Assessment and Plan: Patient has a mechanical aortic valve on Coumadin -according to she does not have her PT/INR checked regularly -INR was 4.5 this admission -INR is therapeutic will continue Coumadin per home dose -will target INR between 2.5-3.5. -daily PT INR (8) Encephalopathy: Code(s): G93.40 - Encephalopathy, unspecified Status: Acute Assessment and Plan: Most likely related hypercapnic respiratory failure secondary to CO2 retention Continue above care. CT head no acute findings. (9) Electrolyte imbalance: Code(s): E87.8 - Other disorders of electrolyte and fluid balance, not elsewhere classified Status: Acute Assessment and Plan: Hyperkalemia has resolved -all other electrolytes within normal limits Plan DVT prophylaxis: On Coumadin,, INR is therapeutic Stress ulcer prophylaxis: Protonix Nutrition: on tube feeds, dietitian following Code Status: Full code This dictation may have been done utilizing a voice recognition system. Attempts have been made to correct errors. However, there may be uncorrected grammatical, spelling, and recognitions errors present. Subjective Date/time seen: 09/30/23 11:39 Interval history: patient intubated and intubated at bedside Review of Systems Review of Systems: Unable to obtain given clinical condition. ROS unobtainable: Yes unobtainable due to endotracheal tube, unobtainable due to medical condition and unobtainable due to mental status Exam Narrative: General: Cachectic female of petite stature, currently in no acute distress HEENT:? Pupils are equal and reactive, sclerae is clear, ETT in place Neck:? Supple Respiratory:? Coarse breath sounds, decreased air entry at bases RT > LT, no wheezing Cardiac:? S1-S2 normal, regular rate and rhythm Abdomen:? Soft, nontender, nondistended, normoactive bowel sounds Extremities:? 1+ pitting edema bilateral lower extremities, palpable pedal pulses Neuro
[2023-09-30 11:55] LABS: Glucose Point of Care 207 mg/dl (65-105)
[2023-09-30 13:13] LABS: Triglycerides 99 mg/dL (<150)
[2023-09-30] MEDS: MIDAZOLAM 100MG/NS 100ML(*CRX) 100 MG/100 ML BAG IV CONT (14:42)
[2023-09-30 15:26] LABS: Chloride Rand Ur 60 mmol/L (32-290); Chloride/Creatinine Rand Ur 146 (38-318); Creatinine Random Urine 41 mg/dL (20-275)
[2023-09-30] MEDS: ASPIRIN 81 MG ENTERIC TABLET PO (17:12)
[2023-09-30 17:15] LABS: Glucose Point of Care 229 mg/dl (65-105)
[2023-10-01] VITALS (28 sets, daily range): BP systolic 128–163; BP diastolic 55–85; PULSE 61–85; RESP 12–16; TEMP 36.6–37.3; O2SAT 93–99
[2023-10-01] MEDS: INSULIN ASPART (*BKC) 100 UNITS/ML SUB-Q ×3 (00:05→16:38)
[2023-10-01 00:09] LABS: Glucose Point of Care 218 mg/dl (65-105)
[2023-10-01] MEDS: IPRATROPIUM 0.5 MG/ALBUTEROL SULFATE 2.5 MG AMPUL.NEB 3 ML INHALATION ×4 (02:13→20:24)
[2023-10-01] MEDS: DOXYCYCLINE 100 MG/NS 100 ML 100 MG/100 ML BAG IVPB ×2 (03:52→15:56)
[2023-10-01 04:59] LABS: Basophils Percent Auto 0.1 % (0.2-1.2); Hematocrit 25.2 % (37.0-47.0); Hemoglobin 8.3 g/dL (12.0-15.0); Immature Granulocyte Absolute 0.31 K/mm3 (0.00-0.031); Lymphocytes Absolute Auto 1.22 K/mm3 (0.9-3.2); Mean Corpuscular HGB Conc 32.9 g/dl (32-36); Mean Platelet Volume 10.6 fl (7.4-10.4); Monocytes Absolute Auto 1.1 K/mm3 (0.1-0.6); Monocytes Percent Auto 3.7 % (2.6-8.5); Neutrophils Absolute Auto 27.6 K/mm3 (1.3-6.7); Neutrophils Percent Auto 91.2 % (45.5-73.1); Nucleated Red Blood Cells Perc 0.1 % (0.0-0.2); Platelet Count Result 238 k/mm3 (150-375); Red Blood Count 2.77 M/mm3 (4.2-5.4); Red Cell Distribution Width 19.4 % (11.5-14.5); White Blood Count 30.3 K/mm3 (4.5-10.0)
[2023-10-01 05:11] LABS: Alanine Aminotransferase 18 U/L (6-35); Albumin Level 3.2 g/dL (3.5-5.1); Alkaline Phosphatase 55 U/L (38-126); Anion Gap 7 mmol/L (4-12); Aspartate Amino Transferase 26 U/L (14-36); Bilirubin,Total 0.3 mg/dL (0.2-1.3); Blood Urea Nitrogen 98 mg/dL (7-17); Calcium 8.7 mg/dL (8.4-10.2); Carbon Dioxide 33 mmol/L (22-30); Chloride 100 mmol/L (98-107); Estimated CRCL calculation 15 ml/min; Estimated Glomerular Filt Rate 22; Glucose 175 mg/dL (65-110); Magnesium 2.7 mg/dL (1.6-2.3); Phosphorus 3.7 mg/dL (2.5-4.5); Potassium 4.3 mmol/L (3.4-5.0); Sodium 140 mmol/L (137-145)
[2023-10-01 05:11] LABS: INR 4.3; Prothrombin Time 42.2 Seconds (11.1-14.7)
[2023-10-01 05:13] LABS: Ammonia < 9 umol/L (9-30)
[2023-10-01 05:29] LABS: Alveolar/Arterial O2 Gradient 80.2 mmHg; Base Excess ABG 7.8 mEq/l (+/-2.0); Carboxyhemoglobin 0.2 % THb (0-2.0); Fractional Inspired Oxygen 30 %; HCO3 ABG 31.2 mEq/l (22.0-26.0); Methemoglobin ABG 0.1 %THb (0-1.5); Oxygen Content ABG 12.7 %vol (16.0-22.0); Oxygen Saturation ABG 97.5 % (95.0-100.0); PCO2 ABG 38.7 mmHg (35.0-45.0); PO2 ABG 88.2 mmHg (80.0-100.0); PO2 FiO2 Ratio Arterial Blood 2.94 %; Reduced Hemoglobin 2.7 %THb (0-5.0); Total Hemoglobin 9.2 g/dL (12.0-18.0)
[2023-10-01 05:31] LABS: Anisocytosis 1+; Hypochromasia 1+; Platelet Estimate Adequate (Adequate); Schistocytes None Seen; Target Cells 1+
[2023-10-01 05:31] LABS: Device VENTILATOR; Site Drawn RIGHT BRACHIAL; pH ABG 7.524 (7.350-7.450)
[2023-10-01 05:32] LABS: Arterial Blood Gas PEEP 5 cmH2O; Arterial Blood Gas Tidal Volume 300 ml; Arterial Blood Gas Vent Mode CMV; Arterial Blood Gas Ventilator rate 14 /MIN
[2023-10-01 05:32] LABS: Vancomycin Random 9.3 ug/mL (10-20)
[2023-10-01] MEDS: VANCOMYCIN 750 MG/NS 250 ML 750 MG/250 ML BAG 250 MG IVPB (07:27)
[2023-10-01] MEDS: INSULIN GLARGINE (*BKC) 100 UNITS/ML 10 UNITS SUB-Q (08:46)
[2023-10-01] MEDS: PANTOPRAZOLE SODIUM IV 40 MG VIAL IV PUSH (08:47)
[2023-10-01] MEDS: FUROSEMIDE INJ 100 MG/10 ML VIAL 80 MG IV PUSH (08:47)
[2023-10-01] MEDS: methylPREDNISolone SOD SUCC 40 MG VIAL IV PUSH (08:47)
[2023-10-01] MEDS: MINERAL OIL/WHITE PETROLATUM OINTMENT 1 APPLIC EACH EYE ×2 (08:47→20:36)
[2023-10-01] MEDS: ATORVASTATIN 40 MG TABLET PO (08:47)
--- NOTE | 2023-10-01 08:59 | P.PNINT_ITS ---
Progress Note: A&P Assessment and Plan (1) Acute hypercapnic respiratory failure: Code(s): J96.02 - Acute respiratory failure with hypercapnia Status: Acute Assessment and Plan: 09/27: Patient presented with altered mental status, respiratory distress was found to be an acute hypercapnic respiratory failure, not amenable to BiPAP, was successfully intubated in the ER on 09/28/2023 -acute respiratory failure could be related to interstitial lung disease flare, CHF exacerbation, - In the ER patient initial ABG showed pH of 7.19, pCO2 of 98, PO2 of 97 on 2 L nasal cannula, Bicarb of 37, pCO2 -patient was placed on BiPAP, repeat ABG showed pH of 7.13, pCO2 of 119, PO2 of 144 on BiPAP 18/5, 80% FiO2 Currently patient on CMV mode of ventilation with low tidal volume strategy to avoid barotrauma and volume trauma -ABGs and chest x-ray reviewed, ventilator adjusted and tidal volume decreased to 70 rate decreased to 12 peep increased to 8 -continue bronchodilators 09/27: Continue ceftriaxone, doxycycline -nasal MRSA screen negative. Vancomycin discontinued -continue fentanyl and Versed infusion, maintain a RASS of 0 to - 2, daily sedation holiday Lasix IV ordered (2) Interstitial lung disease: Code(s): J84.9 - Interstitial pulmonary disease, unspecified Status: Chronic Assessment and Plan: Shortness of breath, hypercapnic respiratory failure could be related to interstitial lung disease flare -patient was given 1 dose of Solu-Medrol -decrease Solu-Medrol to 40 mg IV q.day (patient was taking prednisone at home) -continue bronchodilators (3) CHF (congestive heart failure): Code(s): I50.9 - Heart failure, unspecified Status: Acute Assessment and Plan: Chest x-ray and CT chest show pulmonary edema and/or pneumonia -elevated proBNP 65347 -chest x-ray with possible pulmonary edema versus pneumonia, -IV Lasix Echo Summary 1. Complete two-dimensional, color flow and Doppler transthoracic echocardiogram is performed. 2. Left ventricular chamber dimension is normal. 3. Left ventricular systolic function is preserved, estimated at 50-55%. 4. The left ventricular diastolic function is abnormal. 5. E/e' 27 is elevated. 6. Mechanical aortic valve. 7. There is trace regurgitation of the mechanical aortic valve. 8. The mitral valve has mildly calcified annulus. 9. There is mild to moderate mitral valve regurgitation. 10. There is mild tricuspid valve regurgitation. 11. Mild pulmonary hypertension, estimated pulmonary arterial systolic pressure is 44 mmHg. 12. There is trace pulmonic regurgitation. (4) Essential (primary) hypertension: Code(s): I10 - Essential (primary) hypertension Status: Acute Assessment and Plan: Will hold all antihypertensives as patient is on on mechanical ventilation and sedation, with borderline blood pressure (5) Type 2 diabetes mellitus without complications: Code(s): E11.9 - Type 2 diabetes mellitus without complications Status: Acute Assessment and Plan: - Continue Accu-Cheks and sliding scale insulin -add Lantus -hemoglobin A1c is 6.3 this admission (6) Chronic kidney disease, stage 3: Code(s): N18.30 - Chronic kidney disease, stage 3 unspecified Status: Acute Assessment and Plan: Patient has a history of chronic kidney disease, unknown baseline -urine output has been slow, elevated BUN and creatinine, patient was given 1 L IV fluids -nephrology has been consulted -09/28/2023 renal ultrasound : Mild atrophy of right kidney, no hydronephrosis, small vol
--- NOTE | 2023-10-01 09:45 | P.PNNP_ITS ---
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 * follow trend of repeat labs and UOP (2) Chronic kidney disease, stage 3: Code(s): N18.30 - Chronic kidney disease, stage 3 unspecified Status: Chronic Assessment and Plan: * has been present for the last few years (per ) * presumably due to hypertension, diabetes, vascular disease, and age-related change * noted creatinine of 1.13mg/dl in February 2023 (GFR ~ 52cc/min) (3) Acute hypercapnic respiratory failure: Code(s): J96.02 - Acute respiratory failure with hypercapnia Status: Acute Assessment and Plan: * as noted on presentation with altered mentation * no improvement with attempts at BiPAP therapy * required intubation and mechanical ventilation * multiple possible etiologies: * known interstitial lung disease * CHF * infection/pneumonia(?) * on steroids and bronchodilators * continue ventilator support (4) Interstitial lung disease: Code(s): J84.9 - Interstitial pulmonary disease, unspecified Status: Chronic Assessment and Plan: * on steroids and bronchodilators * follow respiratory statis (5) CHF (congestive heart failure): Code(s): I50.9 - Heart failure, unspecified Status: Acute Assessment and Plan: * admission CXR as well as CT chest demonstrate pulmonary edema and/or pneumonia * [place] [address] * initially on diuretics * Echo results noted * given better hemodynamics and CXR findings, consider trial of diuretics... (6) Essential (primary) hypertension: Code(s): I10 - Essential (primary) hypertension Status: Acute Assessment and Plan: * reasonable control at this time * holding anti-HTN medications at this time * follow trend of hemodynamics (7) Mechanical heart valve present: Code(s): Z95.2 - Presence of prosthetic heart valve Status: Acute Assessment and Plan: * mechanical aortic valve and on coumadin * follow PT/INR (8) Type 2 diabetes mellitus without complications: Code(s): E11.9 - Type 2 diabetes mellitus without complications Status: Acute Assessment and Plan: * follow accu-cheks * glycemic control per inventory control/shipping receiving/hospitalist Will continue to follow. Subjective Date/time seen: 10/01/23 09:45 Interval history: Follow-up for acute kidney injury/acute renal failure on chronic kidney disease. Remains intubated/sedated and on mechanical ventilation; renal funct ion/creatinine slightly better in association with moderate urine output; stable hemodynamics noted; n other issues/events overnight or earlier this AM. Exam Narrative: General: thin and elderly female in NAD Heart: normal S1 and S2; no rub Lungs: coarse breath sounds Abdomen: soft, nontender, nondistended, + bowel sounds Extremities: no cyanosis or cl
--- NOTE | 2023-10-01 09:45 | PM.PNNEP ---
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 follow trend of repeat labs and UOP (2) Chronic kidney disease, stage 3: Code(s): N18.30 - Chronic kidney disease, stage 3 unspecified Status: Chronic Assessment and Plan: has been present for the last few years (per ) presumably due to hypertension, diabetes, vascular disease, and age-related change noted creatinine of 1.13mg/dl in February 2023 (GFR ~ 52cc/min) (3) Acute hypercapnic respiratory failure: Code(s): J96.02 - Acute respiratory failure with hypercapnia Status: Acute Assessment and Plan: as noted on presentation with altered mentation no improvement with attempts at BiPAP therapy required intubation and mechanical ventilation multiple possible etiologies: known interstitial lung disease CHF infection/pneumonia(?) on steroids and bronchodilators continue ventilator support (4) Interstitial lung disease: Code(s): J84.9 - Interstitial pulmonary disease, unspecified Status: Chronic Assessment and Plan: on steroids and bronchodilators follow respiratory statis (5) CHF (congestive heart failure): Code(s): I50.9 - Heart failure, unspecified Status: Acute Assessment and Plan: admission CXR as well as CT chest demonstrate pulmonary edema and/[place] [address] initially on diuretics Echo results noted given better hemodynamics and CXR findings, consider trial of diuretics... (6) Essential (primary) hypertension: Code(s): I10 - Essential (primary) hypertension Status: Acute Assessment and Plan: reasonable control at this time holding anti-HTN medications at this time follow trend of hemodynamics (7) Mechanical heart valve present: Code(s): Z95.2 - Presence of prosthetic heart valve Status: Acute Assessment and Plan: mechanical aortic valve and on coumadin follow PT/INR (8) Type 2 diabetes mellitus without complications: Code(s): E11.9 - Type 2 diabetes mellitus without complications Status: Acute Assessment and Plan: follow accu-cheks glycemic control per supervisor multifocal lens/hospitalist Will continue to follow. Subjective Date/time seen: 10/01/23 09:45 Interval history: Follow-up for acute kidney injury/acute renal failure on chronic kidney disease. Remains intubated/sedated and on mechanical ventilation; renal function/creatinine slightly better in association with moderate urine output; stable hemodynamics noted; n other issues/events overnight or earlier this AM. Exam Narrative: General: thin and elderly female in NAD Heart: normal S1 and S2; no rub Lungs: coarse breath sounds Abdomen: soft, nontender, nondistended, + bowel sounds Extremities: no cyanosis or clubbing; 1+ edema Skin: warm and dry Objective Data Vital Signs Vital Signs: Vital Signs Temp Pulse Resp BP Pulse Ox O2 Del Method FiO2 10/01/23 08:48 73 12 10/01/23 08:37 69 12 10/01/23 08:37 69 93 Mechanical Ventilation 30 10/01/23 08:00 66 10/01/23 08:00 98.4 F 61 14 157/61 H 93 10/01/23 08:00 30 10/01/23 08:00 61 14 93 Mechanical Ventilation 30 10/01/23 06:00 64 14 10/01/23 04:00 76 14 10/01/23 06:00 63 14 10/01/23 04:00 76
--- NOTE | 2023-10-01 10:46 | PCNFU ---
Nutrition Follow-Up Complete: Increased protein energy needs related to mechanical ventilation as evidenced by need for full tube feeding Goal: Meet estimated protein energy needs Patient is progressing towards goal. We will continue current goal. Pt current nutrition is Vital AF 1.2 at 45 ml/hr. Last recorded weight is 43.8 kg, stable. Bowel Motility: No BM reported. Labs Reviewed: Mg 2.7, Cr 2.2,BUN 98, GFR 22, Glu 175 Meds Noted: Lasix, Solu Medrol, Versed, Fentanyl, Protonix Skin: WNL Additional Notes: Patient remains on mechanical vent. Tube feedings are at goal rate of 45 ml/hr, providing 1188 kcals/74 gm protein/803 ml water. Flush 30 ml q 4 hours. Agree with diet orders. Monitoring tube feeding tolerance, weights, labs, plan of care Follow daily in ICU rounds, reassess Tuesdays and Fridays
--- NOTE | 2023-10-01 11:08 | P.CDI_ITS ---
CDI Query Clarification Request Please specify type and acuity of heart failure if known. Risk Factors: CAD, Hx CABG, mech. aortic valve. Clinical Indicators: elevated proBNP 98776, chest x-ray with possible pulmonary edema versus pneumonia, Treatment: IV lasix * Acute * Chronic * Acute on Chronic * Unknown * Systolic * Diastolic * Combined Systolic and Diastolic * Unknown
--- NOTE | 2023-10-01 11:08 | WPDCDIQUERY2 ---
CDI Query Clarification Request Please specify type and acuity of heart failure if known. Risk Factors: CAD, Hx CABG, mech. aortic valve. Clinical Indicators: elevated proBNP 58793, chest x-ray with possible pulmonary edema versus pneumonia, Treatment: IV lasix Acute Chronic Acute on Chronic Unknown Systolic Diastolic Combined Systolic and Diastolic Unknown
[2023-10-01 11:52] LABS: Glucose Point of Care 202 mg/dl (65-105)
[2023-10-01] MEDS: FENTANYL 2,500MCG/NS250ML(*CRX 2,500 MCG/250 ML BAG IV CONT (15:36)
[2023-10-01 16:33] LABS: Glucose Point of Care 228 mg/dl (65-105)
[2023-10-01] MEDS: ASPIRIN 81 MG ENTERIC TABLET PO (16:38)
--- NOTE | 2023-10-01 19:14 | PM.IMPN ---
Progress Note: A&P Assessment and Plan (1) Acute hypercapnic respiratory failure: Code(s): J96.02 - Acute respiratory failure with hypercapnia Status: Acute Assessment and Plan: 09/27: Patient presented with altered mental status, respiratory distress was found to be an acute hypercapnic respiratory failure, not amenable to BiPAP, was successfully intubated in the ER on 09/28/2023 -acute respiratory failure could be related to interstitial lung disease flare, CHF exacerbation, - In the ER patient initial ABG showed pH of 7.19, pCO2 of 98, PO2 of 97 on 2 L nasal cannula, Bicarb of 37, pCO2 -patient was placed on BiPAP, repeat ABG showed pH of 7.13, pCO2 of 119, PO2 of 144 on BiPAP 18/5, 80% FiO2 Currently patient on CMV mode of ventilation with low tidal volume strategy to avoid barotrauma and volume trauma -ABGs and chest x-ray reviewed, ventilator adjusted and tidal volume decreased to 70 rate decreased to 12 peep increased to 8 -continue bronchodilators 09/27: Continue ceftriaxone, doxycycline -nasal MRSA screen negative. Vancomycin discontinued -continue fentanyl and Versed infusion, maintain a RASS of 0 to - 2, daily sedation holiday Lasix IV ordered (2) Interstitial lung disease: Code(s): J84.9 - Interstitial pulmonary disease, unspecified Status: Chronic Assessment and Plan: Shortness of breath, hypercapnic respiratory failure could be related to interstitial lung disease flare -patient was given 1 dose of Solu-Medrol -decrease Solu-Medrol to 40 mg IV q.day (patient was taking prednisone at home) -continue bronchodilators (3) CHF (congestive heart failure): Code(s): I50.9 - Heart failure, unspecified Status: Acute Assessment and Plan: Chest x-ray and CT chest show pulmonary edema and/or pneumonia -elevated proBNP 20092 -chest x-ray with possible pulmonary edema versus pneumonia, -IV Lasix Echo Summary 1. Complete two-dimensional, color flow and Doppler transthoracic echocardiogram is performed. 2. Left ventricular chamber dimension is normal. 3. Left ventricular systolic function is preserved, estimated at 50-55%. 4. The left ventricular diastolic function is abnormal. 5. E/e' 27 is elevated. 6. Mechanical aortic valve. 7. There is trace regurgitation of the mechanical aortic valve. 8. The mitral valve has mildly calcified annulus. 9. There is mild to moderate mitral valve regurgitation. 10. There is mild tricuspid valve regurgitation. 11. Mild pulmonary hypertension, estimated pulmonary arterial systolic pressure is 44 mmHg. 12. There is trace pulmonic regurgitation. (4) Essential (primary) hypertension: Code(s): I10 - Essential (primary) hypertension Status: Acute Assessment and Plan: Will hold all antihypertensives as patient is on on mechanical ventilation and sedation, with borderline blood pressure (5) Type 2 diabetes mellitus without complications: Code(s): E11.9 - Type 2 diabetes mellitus without complications Status: Acute Assessment and Plan: - Continue Accu-Cheks and sliding scale insulin -add Lantus -hemoglobin A1c is 6.3 this admission (6) Chronic kidney disease, stage 3: Code(s): N18.30 - Chronic kidney disease, stage 3 unspecified Status: Chronic Assessment and Plan: Patient has a history of chronic kidney disease, unknown baseline -urine output has been slow, elevated BUN and creatinine, patient was given 1 L IV fluids -nephrology has been consulted -09/28/2023 renal ultrasound : Mild atrophy of right kidney, no hydronephrosis, small volume ascites -urine lytes not renal, urine eosinophils were negative, CK level was 37 -creatinine improved to 2.2 -will monitor urine output, renal function electrolytes -Lasix IV -patient at 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
[2023-10-01 20:00] LABS: Glucose Point of Care 193 mg/dl (65-105)
[2023-10-02] VITALS (41 sets, daily range): BP systolic 105–172; BP diastolic 54–92; PULSE 65–140; RESP 11–34; TEMP 36.6–37.6; O2SAT 92–100
[2023-10-02 00:23] LABS: Glucose Point of Care 177 mg/dl (65-105)
[2023-10-02] MEDS: IPRATROPIUM 0.5 MG/ALBUTEROL SULFATE 2.5 MG AMPUL.NEB 3 ML INHALATION ×4 (02:16→20:58)
[2023-10-02] MEDS: DOXYCYCLINE 100 MG/NS 100 ML 100 MG/100 ML BAG IVPB ×2 (04:09→15:36)
[2023-10-02 04:11] LABS: Glucose Point of Care 190 mg/dl (65-105)
[2023-10-02 04:23] LABS: Basophils Percent Auto 0.1 % (0.2-1.2); Hematocrit 29.2 % (37.0-47.0); Hemoglobin 9.2 g/dL (12.0-15.0); Immature Granulocyte Absolute 0.26 K/mm3 (0.00-0.031); Lymphocytes Percent Auto 6.2 % (18.3-44.2); Mean Corpuscular HGB Conc 31.5 g/dl (32-36); Mean Corpuscular Hemoglobin 29.4 pg (26-34); Mean Corpuscular Volume 93.3 fl (80-100); Monocytes Absolute Auto 1.3 K/mm3 (0.1-0.6); Monocytes Percent Auto 4.6 % (2.6-8.5); Neutrophils Absolute Auto 24.1 K/mm3 (1.3-6.7); Neutrophils Percent Auto 88.1 % (45.5-73.1); Platelet Count Result 245 k/mm3 (150-375); Red Blood Count 3.13 M/mm3 (4.2-5.4); Red Cell Distribution Width 19.9 % (11.5-14.5); White Blood Count 27.3 K/mm3 (4.5-10.0)
[2023-10-02 04:33] LABS: Alanine Aminotransferase 22 U/L (6-35); Albumin Level 3.4 g/dL (3.5-5.1); Alkaline Phosphatase 60 U/L (38-126); Anion Gap 7 mmol/L (4-12); Aspartate Amino Transferase 30 U/L (14-36); Bilirubin,Total 0.3 mg/dL (0.2-1.3); Blood Urea Nitrogen 99 mg/dL (7-17); Calcium 8.8 mg/dL (8.4-10.2); Carbon Dioxide 36 mmol/L (22-30); Chloride 100 mmol/L (98-107); Estimated CRCL calculation 21 ml/min; Estimated Glomerular Filt Rate 34; Glucose 175 mg/dL (65-110); Magnesium 2.4 mg/dL (1.6-2.3); Phosphorus 3.8 mg/dL (2.5-4.5); Sodium 143 mmol/L (137-145)
[2023-10-02 04:34] LABS: Ammonia < 9 umol/L (9-30)
[2023-10-02 04:35] LABS: INR 2.9; Prothrombin Time 31.2 Seconds (11.1-14.7)
[2023-10-02 04:46] LABS: Anisocytosis 1+; Hypochromasia 1+; Ovalocytes 1+; Platelet Estimate Adequate (Adequate); Schistocytes None Seen; Tear Drop Cells 1+
[2023-10-02 05:25] LABS: Fractional Inspired Oxygen 30 %
[2023-10-02 06:08] LABS: Modified Allen's Test Pass; Site Drawn RIGHT BRACHIAL
[2023-10-02 06:09] LABS: Arterial Blood Gas PEEP 8 cmH2O; Arterial Blood Gas Vent Mode CMV; Arterial Blood Gas Ventilator rate 12 /MIN; Device VENTILATOR
[2023-10-02 06:10] LABS: Arterial Blood Gas Tidal Volume 270 ml
[2023-10-02 08:00] LABS: Glucose Point of Care 159 mg/dl (65-105)
[2023-10-02] MEDS: FUROSEMIDE INJ 100 MG/10 ML VIAL 80 MG IV PUSH (08:09)
[2023-10-02] MEDS: PANTOPRAZOLE SODIUM IV 40 MG VIAL IV PUSH (08:09)
[2023-10-02] MEDS: methylPREDNISolone SOD SUCC 40 MG VIAL IV PUSH (08:09)
[2023-10-02] MEDS: ATORVASTATIN 40 MG TABLET PO (08:10)
[2023-10-02] MEDS: INSULIN GLARGINE (*BKC) 100 UNITS/ML 10 UNITS SUB-Q (08:10)
[2023-10-02] MEDS: MINERAL OIL/WHITE PETROLATUM OINTMENT 1 APPLIC EACH EYE ×2 (08:10→19:56)
--- NOTE | 2023-10-02 08:43 | WPDINTPN ---
Progress Note: A&P Assessment and Plan (1) Acute hypercapnic respiratory failure: Code(s): J96.02 - Acute respiratory failure with hypercapnia Status: Acute Assessment and Plan: 09/27: Patient presented with altered mental status, respiratory distress was found to be an acute hypercapnic respiratory failure, not amenable to BiPAP, was successfully intubated in the ER on 09/28/2023 -acute respiratory failure could be related to interstitial lung disease flare, CHF exacerbation, - In the ER patient initial ABG showed pH of 7.19, pCO2 of 98, PO2 of 97 on 2 L nasal cannula, Bicarb of 37, pCO2 -patient was placed on BiPAP, repeat ABG showed pH of 7.13, pCO2 of 119, PO2 of 144 on BiPAP 18/5, 80% FiO2 Currently patient on CMV mode of ventilation with low tidal volume strategy to avoid barotrauma and volume trauma -ABGs and chest x-ray reviewed, ventilator adjusted and tidal volume decreased to 250 rate decreased to 12 peep increased to 8 -continue bronchodilators 09/27: Continue ceftriaxone, doxycycline -nasal MRSA screen negative. Vancomycin discontinued -continue fentanyl and Versed infusion, maintain a RASS of 0 to - 2, daily sedation holiday - Lasix IV ordered - 10/01 06/22 PSV trial was attempted after sedation holiday but patient quickly failed due to increased heart rate tachypnea low tidal volumes. patient changed to 01/22 will continue as tolerated. (2) Interstitial lung disease: Code(s): J84.9 - Interstitial pulmonary disease, unspecified Status: Chronic Assessment and Plan: Shortness of breath, hypercapnic respiratory failure could be related to interstitial lung disease flare -patient was given 1 dose of Solu-Medrol -decrease Solu-Medrol to 40 mg IV q.day (patient was taking prednisone at home) -continue bronchodilators (3) CHF (congestive heart failure): Code(s): I50.9 - Heart failure, unspecified Status: Acute Assessment and Plan: Chest x-ray and CT chest show pulmonary edema and/or pneumonia -elevated proBNP 23572 -chest x-ray with possible pulmonary edema versus pneumonia, -IV Lasix Echo Summary 1. Complete two-dimensional, color flow and Doppler transthoracic echocardiogram is performed. 2. Left ventricular chamber dimension is normal. 3. Left ventricular systolic function is preserved, estimated at 50-55%. 4. The left ventricular diastolic function is abnormal. 5. E/e' 27 is elevated. 6. Mechanical aortic valve. 7. There is trace regurgitation of the mechanical aortic valve. 8. The mitral valve has mildly calcified annulus. 9. There is mild to moderate mitral valve regurgitation. 10. There is mild tricuspid valve regurgitation. 11. Mild pulmonary hypertension, estimated pulmonary arterial systolic pressure is 44 mmHg. 12. There is trace pulmonic regurgitation. (4) Essential (primary) hypertension: Code(s): I10 - Essential (primary) hypertension Status: Acute Assessment and Plan: Will hold all antihypertensives as patient is on on mechanical ventilation and sedation, with borderline blood pressure (5) Type 2 diabetes mellitus without complications: Code(s): E11.9 - Type 2 diabetes mellitus without complications Status: Acute Assessment and Plan: - Continue Accu-Cheks and sliding scale insulin - continue Lantus -hemoglobin A1c is 6.3 this admission (6) Chronic kidney disease, stage 3: Code(s): N18.30 - Chronic kidney disease, stage 3 unspecified Status: Chronic Assessment and Plan: Patient has a history of chronic kidney disease, unknown baseline -urine output has been slow, elevated BUN and creatinine, patient was given 1 L IV fluids -nephrology has been consulted -09/28/2023 renal ultrasound : Mild atrophy of right kidney, no hydronephrosis, small volume ascites -urine lytes not renal, urine eosinophils were negative, CK level was 37 -creatinine improved to 1.5 -will monitor urine output,
[2023-10-02] MEDS: dexmedeTOMIDine 400 MCG/100 ML 400 MCG/100 ML BAG IV CONT (10:32)
[2023-10-02] MEDS: MIDAZOLAM HCL (*CRX) 2 MG/2 ML VIAL IV PUSH (10:39)
--- NOTE | 2023-10-02 11:07 | PCFNICU ---
Addendum entered by Maritza Cordoba RD, LDN 10/03/23 11:07: wrong patient for Na lab. Na has been WNL. Recommend to continue current flush of 30 ml q 4 hours. Original Note: ICU Rounding Note: Pt current nutrition is Vital AF 1.2 at 45 ml/hr. Last recorded weight is 42.5 kg, down from 43.4 kg on admit. Bowel Motility: No BM reported-[facility] is aware. Labs Reviewed:Mg 2.4,GFR 34, BUN 99, Cr 1.5,Glu 175, Na 159 Meds Noted:Lasix, Precedex,Lantus, Solu Medrol. Skin: WNL Additional Notes: Patient remains on a mechanical vent. Sedation change from Fentanyl/Versed to Precedex. Tube feedings are being tolerated of Vital AF 1.2 at 45 ml/hr. Na 159 today-recommend increasing water flush to 100 ml q 4 hours. Agree with diet orders. Monitoring tube feeding tolerance, weights, labs, plan of care Follow daily in ICU rounds, reassess Tuesdays and Fridays.
[2023-10-02 11:59] LABS: Glucose Point of Care 241 mg/dl (65-105)
[2023-10-02] MEDS: INSULIN ASPART (*BKC) 100 UNITS/ML SUB-Q ×4 (12:11→23:08)
--- NOTE | 2023-10-02 12:14 | PM.PNNEP ---
Progress Note: A&P Assessment and Plan (1) ED (acute kidney injury): Code(s): N17.9 - Acute kidney failure, unspecified Status: Acute Assessment and Plan: slow improvement noted complicated by mild hyperkalemia on admission as well etiology likely multifactorial: fluctuating hemodynamics possible prerenal factors medications (bactrim, losartan, diuretics) CHF Hypoxia other(?) evaluation to date noted: renal ultrasound with right kidney atrophy urine eosinophils negative urine electrolytes non-prerenal CPK okay good urine output in response to IV diuretics follow trend of repeat labs and UOP (2) Chronic kidney disease, stage 3: Code(s): N18.30 - Chronic kidney disease, stage 3 unspecified Status: Chronic Assessment and Plan: has been present for the last few years (per ) presumably due to hypertension, diabetes, vascular disease, and age-related change noted creatinine of 1.13mg/dl in February 2023 (GFR ~ 52cc/min) (3) Acute hypercapnic respiratory failure: Code(s): J96.02 - Acute respiratory failure with hypercapnia Status: Acute Assessment and Plan: as noted on presentation with altered mentation no improvement with attempts at BiPAP therapy required intubation and mechanical ventilation multiple possible etiologies: known interstitial lung disease CHF infection/pneumonia(?) on steroids and bronchodilators continue ventilator support (4) Interstitial lung disease: Code(s): J84.9 - Interstitial pulmonary disease, unspecified Status: Chronic Assessment and Plan: on steroids and bronchodilators follow respiratory statis (5) CHF (congestive heart failure): Code(s): I50.9 - Heart failure, unspecified Status: Acute Assessment and Plan: admission CXR as well as CT chest demonstrate pulmonary edema [place] [address] Echo results noted given better hemodynamics and CXR findings, IV diuretics PRN (6) Essential (primary) hypertension: Code(s): I10 - Essential (primary) hypertension Status: Acute Assessment and Plan: reasonable control at this time holding anti-HTN medications at this time follow trend of hemodynamics (7) Mechanical heart valve present: Code(s): Z95.2 - Presence of prosthetic heart valve Status: Acute Assessment and Plan: mechanical aortic valve and on coumadin follow PT/INR (8) Type 2 diabetes mellitus without complications: Code(s): E11.9 - Type 2 diabetes mellitus without complications Status: Acute Assessment and Plan: follow accu-cheks glycemic control per flea market seller/hospitalist Will continue to follow. Subjective Date/time seen: 10/02/23 12:14 Interval history: Follow-up for acute kidney injury/acute renal failure on chronic kidney disease. Improvement in renal function/creatinine as well as urine output with trial of IV diuretics; remains intubated/sedated and on mechanical ventilation; remains hemodynamically stable without the need for vasopressor therapy; no other issues/events overnight or earlier this morning. Exam Narrative: General: thin and elderly female in NAD Heart: normal S1 and S2; no rub Lungs: coarse breath sounds Abdomen: soft, nontender, nondistended, + bowel sounds Extremities: no cyanosis or clubbing; trace - 1+ edema Skin: warm and intact Objective Data Vital Signs Vital Signs: Vital Signs Temp Pulse Resp BP Pulse Ox O2 Del Method FiO2 10/02/23 12:00 99.1 F 73 15 146/67 H 97 Mechanical Ventilation 30 10/02/23 11:47 80 30 H 10/02/23 11:00 76 15 10/02/23 10:00 80 10/02/23 10:32 105 H 30 H 10/02/23 10:00 85 15 10/02/23 10:00 85 13 10/02/23 10:00 98.4 F 86 11 L 171/69 H 99 10/02/23 08:00 75 10/02/23 08:35 72 13
--- NOTE | 2023-10-02 12:14 | P.PNNP_ITS ---
Progress Note: A&P Assessment and Plan (1) ED (acute kidney injury): Code(s): N17.9 - Acute kidney failure, unspecified Status: Acute Assessment and Plan: * slow improvement noted * complicated by mild hyperkalemia on admission as well * etiology likely multifactorial: * fluctuating hemodynamics * possible prerenal factors * medications (bactrim, losartan, diuretics) * CHF * Hypoxia * other(?) * evaluation to date noted: * renal ultrasound with right kidney atrophy * urine eosinophils negative * urine electrolytes non-prerenal * CPK okay * good urine output in response to IV diuretics * follow trend of repeat labs and UOP (2) Chronic kidney disease, stage 3: Code(s): N18.30 - Chronic kidney disease, stage 3 unspecified Status: Chronic Assessment and Plan: * has been present for the last few years (per ) * presumably due to hypertension, diabetes, vascular disease, and age-related change * noted creatinine of 1.13mg/dl in February 2023 (GFR ~ 52cc/min) (3) Acute hypercapnic respiratory failure: Code(s): J96.02 - Acute respiratory failure with hypercapnia Status: Acute Assessment and Plan: * as noted on presentation with altered mentation * no improvement with attempts at BiPAP therapy * required intubation and mechanical ventilation * multiple possible etiologies: * known interstitial lung disease * CHF * infection/pneumonia(?) * on steroids and bronchodilators * continue ventilator support (4) Interstitial lung disease: Code(s): J84.9 - Interstitial pulmonary disease, unspecified Status: Chronic Assessment and Plan: * on steroids and bronchodilators * follow respiratory statis (5) CHF (congestive heart failure): Code(s): I50.9 - Heart failure, unspecified Status: Acute Assessment and Plan: * admission CXR as well as CT chest demonstrate pulmonary edema and/or pneumonia * [place] [address] * Echo results noted * given better hemodynamics and CXR findings, IV diuretics PRN (6) Essential (primary) hypertension: Code(s): I10 - Essential (primary) hypertension Status: Acute Assessment and Plan: * reasonable control at this time * holding anti-HTN medications at this time * follow trend of hemodynamics (7) Mechanical heart valve present: Code(s): Z95.2 - Presence of prosthetic heart valve Status: Acute Assessment and Plan: * mechanical aortic valve and on coumadin * follow PT/INR (8) Type 2 diabetes mellitus without complications: Code(s): E11.9 - Type 2 diabetes mellitus without complications Status: Acute Assessment and Plan: * follow accu-cheks * glycemic control per hatch tender/hospitalist Will continue to follow. Subjective Date/time seen: 10/02/23 12:14 Interval history: Follow-up for acute kidney injury/acute renal failure on chronic kidney disease. Improvement in renal function/creatinine as well as urine output with trial of IV diuretics; remains intubated/sedated and on mechanical ventilation; remains hemodynamically stable without the need for vasopressor therapy; no other issues/events overnight or earlier this morning. Exam Narrative: General: thin and elderly female in NAD Heart: normal S1 and S2; no rub Lungs: coarse breath sounds Abdomen: soft, nontender, nondistended, + bowel sounds Extremities: no cyanosis or clubbi
[2023-10-02 13:34] LABS: Triglycerides 81 mg/dL (<150)
[2023-10-02 13:41] LABS: INR 2.3
[2023-10-02] MEDS: MIDAZOLAM HCL (*CRX) 2 MG/2 ML VIAL (14:29)
[2023-10-02] MEDS: METOPROLOL TARTRATE INJ 5 MG/5 ML VIAL IV PUSH (14:50)
[2023-10-02 15:39] LABS: Anion Gap 10 mmol/L (4-12); Blood Urea Nitrogen 100 mg/dL (7-17); Calcium 8.7 mg/dL (8.4-10.2); Carbon Dioxide 36 mmol/L (22-30); Chloride 97 mmol/L (98-107); Estimated CRCL calculation 28 ml/min; Estimated Glomerular Filt Rate 49; Glucose 207 mg/dL (65-110); Potassium 3.9 mmol/L (3.4-5.0); Sodium 143 mmol/L (137-145)
[2023-10-02] MEDS: HEPARIN SODIUM 5,000 UNITS/ML VIAL 3500 UNITS IV PUSH (15:39)
[2023-10-02] MEDS: HEPARIN SOD/D5W 100 UNITS/ML 25,000 UNITS/250 ML BAG 8 UNITS IV CONT (15:39)
[2023-10-02 15:57] LABS: Partial Thromboplastin Time 28.4 Seconds (22.3-36.8)
--- NOTE | 2023-10-02 16:01 | PC.NURSE ---
Dr. Matias updated on BMP results. No new orders at this time.
[2023-10-02] MEDS: ASPIRIN 81 MG ENTERIC TABLET PO (18:15)
[2023-10-02 20:10] LABS: Glucose Point of Care 248 mg/dl (65-105)
[2023-10-02 23:10] LABS: Partial Thromboplastin Time > 200.0 Seconds (22.3-36.8)
[2023-10-02 23:19] LABS: Glucose Point of Care 202 mg/dl (65-105)
[2023-10-03] VITALS (45 sets, daily range): BP systolic 84–154; BP diastolic 42–86; PULSE 60–105; RESP 12–31; TEMP 36.3–38.2; O2SAT 93–100
[2023-10-03] MEDS: dexmedeTOMIDine 400 MCG/100 ML 400 MCG/100 ML BAG 8.5 MCG IV CONT (00:13)
[2023-10-03] MEDS: IPRATROPIUM 0.5 MG/ALBUTEROL SULFATE 2.5 MG AMPUL.NEB 3 ML INHALATION ×4 (01:57→20:10)
[2023-10-03 04:20] LABS: Glucose Point of Care 190 mg/dl (65-105)
[2023-10-03] MEDS: DOXYCYCLINE 100 MG/NS 100 ML 100 MG/100 ML BAG IVPB (04:22)
--- NOTE | 2023-10-03 06:37 | PCRCNOTE ---
unable to obtain 0500 ABG. second therapist attempted and was unable to obtain. Day shift therapist aware.
[2023-10-03 06:53] LABS: Eosinophils Percent Auto 0.1 % (0-4.4); Hematocrit 24.8 % (37.0-47.0); Hemoglobin 7.8 g/dL (12.0-15.0); Immature Granulocyte Absolute 0.14 K/mm3 (0.00-0.031); Immature Granulocyte Percent A 0.7 % (0-0.5); Lymphocytes Absolute Auto 2.16 K/mm3 (0.9-3.2); Lymphocytes Percent Auto 10.5 % (18.3-44.2); Mean Corpuscular HGB Conc 31.5 g/dl (32-36); Mean Corpuscular Hemoglobin 29.1 pg (26-34); Mean Corpuscular Volume 92.5 fl (80-100); Mean Platelet Volume 11.2 fl (7.4-10.4); Neutrophils Absolute Auto 17.3 K/mm3 (1.3-6.7); Neutrophils Percent Auto 83.7 % (45.5-73.1); Platelet Count Result 212 k/mm3 (150-375); Red Blood Count 2.68 M/mm3 (4.2-5.4); Red Cell Distribution Width 19.2 % (11.5-14.5); White Blood Count 20.6 K/mm3 (4.5-10.0)
[2023-10-03 06:59] LABS: Prothrombin Time 23.4 Seconds (11.1-14.7)
[2023-10-03 07:00] LABS: Blood Urea Nitrogen 87 mg/dL (7-17)
[2023-10-03 07:00] LABS: Ammonia < 9 umol/L (9-30)
[2023-10-03 07:01] LABS: Alanine Aminotransferase 20 U/L (6-35); Albumin Level 3.1 g/dL (3.5-5.1); Alkaline Phosphatase 58 U/L (38-126); Aspartate Amino Transferase 38 U/L (14-36); Bilirubin,Total 0.5 mg/dL (0.2-1.3); Calcium 8.8 mg/dL (8.4-10.2); Carbon Dioxide > 40 mmol/L (22-30); Chloride 98 mmol/L (98-107); Estimated CRCL calculation 30 ml/min; Estimated Glomerular Filt Rate 55; Glucose 214 mg/dL (65-110); Magnesium 2.1 mg/dL (1.6-2.3); Phosphorus 2.3 mg/dL (2.5-4.5); Potassium 3.4 mmol/L (3.4-5.0); Sodium 144 mmol/L (137-145)
[2023-10-03 07:40] LABS: Partial Thromboplastin Time > 200.0 Seconds (22.3-36.8)
[2023-10-03 07:44] LABS: Glucose Point of Care 192 mg/dl (65-105)
[2023-10-03 08:04] LABS: Base Excess ABG 10.2 mEq/l (+/-2.0); HCO3 ABG 35.2 mEq/l (22.0-26.0); PCO2 ABG 50.7 mmHg (35.0-45.0); PO2 ABG 112.4 mmHg (80.0-100.0)
[2023-10-03 08:05] LABS: Alveolar/Arterial O2 Gradient 41.9 mmHg; Carboxyhemoglobin 0.3 % THb (0-2.0); Oxygen Content ABG 13.3 %vol (16.0-22.0); Oxygen Saturation ABG 98.2 % (95.0-100.0); Oxyhemoglobin 97.8 % THb (90.0-100.0); Total Hemoglobin 9.5 g/dL (12.0-18.0)
[2023-10-03 08:06] LABS: Methemoglobin ABG 0.1 %THb (0-1.5); PO2 FiO2 Ratio Arterial Blood 3.75 %; Reduced Hemoglobin 1.8 %THb (0-5.0)
[2023-10-03] MEDS: INSULIN GLARGINE (*BKC) 100 UNITS/ML 10 UNITS SUB-Q (08:27)
[2023-10-03] MEDS: PANTOPRAZOLE SODIUM IV 40 MG VIAL IV PUSH (08:27)
[2023-10-03] MEDS: BISACODYL 10 MG SUPPOSITORY RECTAL (08:27)
[2023-10-03] MEDS: ATORVASTATIN 40 MG TABLET PO (08:27)
[2023-10-03] MEDS: methylPREDNISolone SOD SUCC 40 MG VIAL IV PUSH (08:27)
[2023-10-03] MEDS: POTASSIUM PHOS,M-BASIC-D-BASIC 20 MMOL in SODIUM CHLORIDE 0.9% IV 250 ML 64.17 MMOL IVPB (08:55)
[2023-10-03] MEDS: polyethylene glycoL 3350 17 GM POWD.PACK FEED TUBE (08:56)
[2023-10-03] MEDS: MINERAL OIL/WHITE PETROLATUM OINTMENT 1 APPLIC EACH EYE ×2 (08:56→21:22)
[2023-10-03] MEDS: dexmedeTOMIDine 400 MCG/100 ML 400 MCG/100 ML BAG 13.81 MCG IV CONT (09:01)
--- NOTE | 2023-10-03 09:37 | WPDINTPN ---
Progress Note: A&P Assessment and Plan (1) Acute hypercapnic respiratory failure: Code(s): J96.02 - Acute respiratory failure with hypercapnia Status: Acute Assessment and Plan: 09/27: Patient presented with altered mental status, respiratory distress was found to be an acute hypercapnic respiratory failure, not amenable to BiPAP, was successfully intubated in the ER on 09/28/2023 -acute respiratory failure could be related to baseline interstitial lung disease , pleural effusions, general debility and CHF exacerbation, possible pneumonia - In the ER patient initial ABG showed pH of 7.19, pCO2 of 98, PO2 of 97 on 2 L nasal cannula, Bicarb of 37, pCO2 -patient was placed on BiPAP, repeat ABG showed pH of 7.13, pCO2 of 119, PO2 of 144 on BiPAP /, 80% FiO2 Currently patient on CMV mode of ventilation with low tidal volume strategy to avoid barotrauma and volume trauma. Tidal volume to 50 rate 12 FiO2 30% and peep of 5 -ABGs and chest x-ray reviewed -continue bronchodilators 09/27: Continue course of ceftriaxone, doxycycline -nasal MRSA screen negative. Vancomycin was discontinued -continue fentanyl and Precedex infusion, maintain a RASS of 0 to - 2, daily sedation holiday - Lasix IV ordered - 10/01 06/22 PSV trial was attempted after sedation holiday but patient quickly failed due to increased heart rate tachypnea low tidal volumes. patient changed to / and tolerated for less than an hour - 10/02 patient trial again this morning and went into apnea ventilation. sedation is on hold and will make another attempt request IR for ultrasound-guided thoracentesis on the right which may or may not improve chances of weaning from the ventilator. Will have to coordinate with radiology regarding anticoagulation patient is on (2) Interstitial lung disease: Code(s): J84.9 - Interstitial pulmonary disease, unspecified Status: Chronic Assessment and Plan: Shortness of breath, hypercapnic respiratory failure could be related to interstitial lung disease flare -patient was given 1 dose of Solu-Medrol - I have decreased Solu-Medrol to 40 mg IV q.day (patient was taking prednisone at home) -continue bronchodilators - will consult Pulmonary (3) CHF (congestive heart failure): Code(s): I50.9 - Heart failure, unspecified Status: Acute Assessment and Plan: Chest x-ray and CT chest show pulmonary edema and/or pneumonia -elevated proBNP 03164 -chest x-ray with possible pulmonary edema versus pneumonia, -IV Lasix Echo Summary 1. Complete two-dimensional, color flow and Doppler transthoracic echocardiogram is performed. 2. Left ventricular chamber dimension is normal. 3. Left ventricular systolic function is preserved, estimated at 50-55%. 4. The left ventricular diastolic function is abnormal. 5. E/e' 27 is elevated. 6. Mechanical aortic valve. 7. There is trace regurgitation of the mechanical aortic valve. 8. The mitral valve has mildly calcified annulus. 9. There is mild to moderate mitral valve regurgitation. 10. There is mild tricuspid valve regurgitation. 11. Mild pulmonary hypertension, estimated pulmonary arterial systolic pressure is 44 mmHg. 12. There is trace pulmonic regurgitation. (4) Essential (primary) hypertension: Code(s): I10 - Essential (primary) hypertension Status: Acute Assessment and Plan: Will hold all antihypertensives as patient is on on mechanical ventilation and sedation, with borderline blood pressure (5) Type 2 diabetes mellitus without complications: Code(s): E11.9 - Type 2 diabetes mellitus without complications Status: Acute Assessment and Plan: - Continue Accu-Cheks and sliding scale insulin - continue Lantus -hemoglobin A1c is 6.3 this admission (6) Chronic kidney disease, stage 3: Code(s): N18.30 - Chronic kidney disease, stage 3 unspecified Status: Chronic Assessment and Plan: Chana
--- NOTE | 2023-10-03 09:45 | PCRCNOTE ---
RT placed patient in PSV 12/5 30% per Dr. Matias order. RT assessed patient, Patient went apneic multiply times during SBT. RT notified . Dr. Matias stated to placed back in CMV settings. RT placed patient back in CMV settings according to Dr. Matias order. About 10 minutes later, patient woke up more and became tachypneic on CMV settings. RT notified Dr. Matias. RT then placed patient back in PSV 12/5 30% per Dr. Matias. RT assessed patient, Patient started breathing in the upper 30s-40s during PSV 12/5 30%. RT notified Dr. Matias, he stated to place patient in PSV 20/5 30%. RT changed settings according to Dr. Matias verbal order. Patient then began to breath 8-10 times per minute. RT notified Dr. Matias, who stated to place back back in CMV settings. RT placed patient back in CMV settings according to Dr. Matias order. Patient appears to be comfortably breathing on the vent in CMV settings. RN aware.
--- NOTE | 2023-10-03 11:08 | PCFNICU ---
ICU Rounding Note: Pt current nutrition is Vital AF 132 at 45 ml/hr. Nutrition recommendation: no recommendations at this time. Last recorded weight is 39.4 kg, down from 43.4 kg. Bowel Motility: No BM reported-nursing gave Dulcolax suppository today. Labs Reviewed: Glu 214, BUN 87, Alb 3.1, GFR 55, PO4 2.3 Meds Noted: Precedex, Dulcolax Suppository, Lipitor. Skin: WNL Additional Notes: Patient remains on mechanical vent. Tube feedings are being tolerated of Vital AF 1.2 at 45 ml/hr. Flush 30 ml q 4 hours. Agree with diet orders. Following daily in ICU rounds. Monitoring tube feeding tolerance, weights, labs, plan of care and reassess Tuesdays and Fridays.
--- NOTE | 2023-10-03 11:17 | PM.IMPN ---
Progress Note: A&P Assessment and Plan (1) Acute hypercapnic respiratory failure: Code(s): J96.02 - Acute respiratory failure with hypercapnia Status: Acute Assessment and Plan: Patient presented on 09/27 with altered mental status and respiratory distress. CT Ch/A/P showing diffuse lung disease likely moderate pulm edema, mod Rt and small Lt pleural effusion, small volume of ascites and GB distention. AB.19/98/97 on 2 L. BiPAP attempted but repeat ABG 7.13/119/144 on BiPAP. Patient was intubated in ED and admitted to ICU Acute respiratory failure could be related to ILD, pleural effusions, general debility, CHF exacerbation and/or pneumonia Abx started as Rocephin, Doxy and Vanco once approrpiate cultures obtained. MRSA nasal screen negative. Vancomycin was discontinued Sputum Cx negative. BCx NGTD. WBC was up to 30K but now trending down. Lasix IV once 10/01 Patient remains intubated. Spontaneous breathing trial unsuccessful 10/01 ABG and CXR reviewed. Appreciate casting repairer input. Continue bronchodilators Continue fentanyl and Precedex infusion Breathing trial today. Plan for thoracentesis but may be delayed due to the anticoagulation. (2) Interstitial lung disease: Code(s): J84.9 - Interstitial pulmonary disease, unspecified Status: Chronic Assessment and Plan: Shortness of breath, hypercapnic respiratory failure could be related to interstitial lung disease flare Patient takes Prednisone at home Patient was started on Solu-Medrol Pulmonary consulted (3) CHF (congestive heart failure): Code(s): I50.9 - Heart failure, unspecified Status: Acute Assessment and Plan: CT chest show pulmonary edema and pleural effusions. Consider pneumonia BNP 02741. Echo showing normal LV systolic function with EF 50-55%, abnormal LV diastolic function, mechanical AV with trace regurg, mild-mod MR and mild pulmonary HTN. She received IV Lasix yesterday with good UOP. Diuresis as tolerated. (4) Essential (primary) hypertension: Code(s): I10 - Essential (primary) hypertension Status: Acute Assessment and Plan: AntiHTn agents on hold since patient is on mechanical ventilation and sedation, with borderline blood pressure Monitor (5) Type 2 diabetes mellitus without complications: Code(s): E11.9 - Type 2 diabetes mellitus without complications Status: Acute Assessment and Plan: A1c is 6.3 this admission. The patient's blood glucose was reviewed on 10/02 Glucose remains reasonably well controlled. Continue AccuCheks covering with sliding scale. Hypoglycemia protocol available as needed. Continue to monitor (6) Chronic kidney disease, stage 3: Code(s): N18.30 - Chronic kidney disease, stage 3 unspecified Status: Chronic Assessment and Plan: Patient has a history of chronic kidney disease, unknown baseline Cr 2.2 on admission and climbed to 2.7. Nephrology consulted. Potassium 5.4 on admission but normal since. No acidosis. She was initially given an gentle 1 L IV fluids due to volume overload; Nephrology was consulted Renal US 09/27: Mild atrophy of right kidney, no hydronephrosis, small volume ascites Creatinine has trended down and not at 1 BUN elevated but probably related to steroids. Monitor urine output, renal function electrolytes (7) Mechanical heart valve present: Code(s): Z95.2 - Presence of prosthetic heart valve Status: Acute Assessment and Plan: Patient has a mechanical aortic valve and was on Coumadin According to , she does not have her PT/INR checked regularly INR was 4.5 this admission and Coumadin held. Patient has now been transition to heparin infusion in light of needing invasive procedures Monitor (8) Encephalopathy: Code(s): G93.40 - Encephalopathy, unspecified Status: Acute Assessment and Plan: Most likely with AMS related
[2023-10-03] MEDS: LIDOCAINE HCL 1% PF INJ 5 ML VIAL INFILTRATE (11:27)
[2023-10-03 11:55] LABS: Glucose Point of Care 149 mg/dl (65-105)
--- NOTE | 2023-10-03 12:16 | P.PNNP_ITS ---
Progress Note: A&P Assessment and Plan (1) ED (acute kidney injury): Code(s): N17.9 - Acute kidney failure, unspecified Status: Acute Assessment and Plan: * improvement noted if not back to [facility] * complicated by mild hyperkalemia on admission as well * etiology likely multifactorial: * fluctuating hemodynamics * possible prerenal factors * medications (bactrim, losartan, diuretics) * CHF * Hypoxia * other(?) * evaluation to date noted: * renal ultrasound with right kidney atrophy * urine eosinophils negative * urine electrolytes non-prerenal * CPK okay * good urine output in response to IV diuretics * azotemia likely secondary to diuretics and steroids * follow trend of repeat labs and UOP (2) Chronic kidney disease, stage 3: Code(s): N18.30 - Chronic kidney disease, stage 3 unspecified Status: Chronic Assessment and Plan: * has been present for the last few years (per ) * presumably due to hypertension, diabetes, vascular disease, and age-related change * noted creatinine of 1.13mg/dl in February 2023 (GFR ~ 52cc/min) (3) Acute hypercapnic respiratory failure: Code(s): J96.02 - Acute respiratory failure with hypercapnia Status: Acute Assessment and Plan: * as noted on presentation with altered mentation * no improvement with attempts at BiPAP therapy * required intubation and mechanical ventilation * multiple possible etiologies: * known interstitial lung disease * CHF * infection/pneumonia(?) * on steroids and bronchodilators * continue ventilator support (4) Interstitial lung disease: Code(s): J84.9 - Interstitial pulmonary disease, unspecified Status: Chronic Assessment and Plan: * on steroids and bronchodilators * Pulmonary consulted * follow respiratory status (5) CHF (congestive heart failure): Code(s): I50.9 - Heart failure, unspecified Status: Acute Assessment and Plan: * admission CXR as well as CT chest demonstrate pulmonary edema and/or pneumonia * [place] [address] * Echo results noted * given better hemodynamics and CXR findings, getting IV diuretics PRN (6) Essential (primary) hypertension: Code(s): I10 - Essential (primary) hypertension Status: Acute Assessment and Plan: * reasonable control at this time * holding anti-HTN medications at this time * follow trend of hemodynamics (7) Mechanical heart valve present: Code(s): Z95.2 - Presence of prosthetic heart valve Status: Acute Assessment and Plan: * mechanical aortic valve and on coumadin * follow PT/INR (8) Type 2 diabetes mellitus without complications: Code(s): E11.9 - Type 2 diabetes mellitus without complications Status: Acute Assessment and Plan: * follow accu-cheks * glycemic control per heater mechanic/hospitalist Not much else to add -- will continue to follow from a distance. Subjective Date/time seen: 10/03/23 12:16 Interval history: Follow-up for acute kidney injury/acute renal failure on chronic kidney disease. Renal function/creatinine continues to improve despite IV diuretic therapy; good urine output noted in response to IV diuretics; remains intuabted/sedated and on mechanical ventilation; failed weaning trial yesterday; remains hemodynamically stable; low grade fevers noted this morning. Exam Narrative: General: thin and elderly female in NAD Heart: n
--- NOTE | 2023-10-03 12:16 | PM.PNNEP ---
Progress Note: A&P Assessment and Plan (1) ED (acute kidney injury): Code(s): N17.9 - Acute kidney failure, unspecified Status: Acute Assessment and Plan: improvement noted if not back to [facility] complicated by mild hyperkalemia on admission as well etiology likely multifactorial: fluctuating hemodynamics possible prerenal factors medications (bactrim, losartan, diuretics) CHF Hypoxia other(?) evaluation to date noted: renal ultrasound with right kidney atrophy urine eosinophils negative urine electrolytes non-prerenal CPK okay good urine output in response to IV diuretics azotemia likely secondary to diuretics and steroids follow trend of repeat labs and UOP (2) Chronic kidney disease, stage 3: Code(s): N18.30 - Chronic kidney disease, stage 3 unspecified Status: Chronic Assessment and Plan: has been present for the last few years (per ) presumably due to hypertension, diabetes, vascular disease, and age-related change noted creatinine of 1.13mg/dl in February 2023 (GFR ~ 52cc/min) (3) Acute hypercapnic respiratory failure: Code(s): J96.02 - Acute respiratory failure with hypercapnia Status: Acute Assessment and Plan: as noted on presentation with altered mentation no improvement with attempts at BiPAP therapy required intubation and mechanical ventilation multiple possible etiologies: known interstitial lung disease CHF infection/pneumonia(?) on steroids and bronchodilators continue ventilator support (4) Interstitial lung disease: Code(s): J84.9 - Interstitial pulmonary disease, unspecified Status: Chronic Assessment and Plan: on steroids and bronchodilators Pulmonary consulted follow respiratory status (5) CHF (congestive heart failure): Code(s): I50.9 - Heart failure, unspecified Status: Acute Assessment and Plan: admission CXR as well as CT chest demonstrate pulmonary edema and/[place] [address] Echo results noted given better hemodynamics and CXR findings, getting IV diuretics PRN (6) Essential (primary) hypertension: Code(s): I10 - Essential (primary) hypertension Status: Acute Assessment and Plan: reasonable control at this time holding anti-HTN medications at this time follow trend of hemodynamics (7) Mechanical heart valve present: Code(s): Z95.2 - Presence of prosthetic heart valve Status: Acute Assessment and Plan: mechanical aortic valve and on coumadin follow PT/INR (8) Type 2 diabetes mellitus without complications: Code(s): E11.9 - Type 2 diabetes mellitus without complications Status: Acute Assessment and Plan: follow accu-cheks glycemic control per family protection specialist/hospitalist Not much else to add -- will continue to follow from a distance. Subjective Date/time seen: 10/03/23 12:16 Interval history: Follow-up for acute kidney injury/acute renal failure on chronic kidney disease. Renal function/creatinine continues to improve despite IV diuretic therapy; good urine output noted in response to IV diuretics; remains intuabted/sedated and on mechanical ventilation; failed weaning trial yesterday; remains hemodynamically stable; low grade fevers noted this morning. Exam Narrative: General: thin and elderly female in NAD Heart: normal S1 and S2; no rub Lungs: coarse breath sounds Abdomen: soft, nontender, nondistended, + bowel sounds Extremities: no cyanosis or clubbing; trace - 1+ edema Skin: no rash Objective Data Vital Signs Vital Signs: Vital Signs Temp Pulse Resp BP Pulse Ox O2 Del Method FiO2 10/03/23 12:00 100.2 F H 89 19 106/49 L 100 Mechanical Venitlation 10/03/23 11:00 94 10/03/23 10:00 105 H 27 H 10/03/23 11:00 94 10/03/23 11:29 93 94 Mechanical Ventilation 08
--- NOTE | 2023-10-03 13:12 | PM.CNPUL ---
Assessment and Plan Assessment and plan (1) Acute hypoxemic respiratory failure: Code(s): J96.01 - Acute respiratory failure with hypoxia Status: Acute Assessment and Plan: She was admitted Sep 27 with acute on chronic hypercapnic hypoxemic respiratory failure, improved acid base and oxygenation with intubation, now failing weaning attempts. (2) Acute hypercapnic respiratory failure: Code(s): J96.02 - Acute respiratory failure with hypercapnia Status: Acute Assessment and Plan: initial pCO2 was 98.8, improved after trial of BiPAP then intubation (3) Interstitial lung disease: Code(s): J84.9 - Interstitial pulmonary disease, unspecified Status: Chronic Assessment and Plan: At least 2 years duration, specific type unclear; pattern on chest CT is distorted by pulmonary edema and right pleural effusion; records requested from her primary pulmonary doctor. She is getting IV steroids, continue these. (4) CHF (congestive heart failure): Code(s): I50.9 - Heart failure, unspecified Status: Acute Assessment and Plan: Plan Cause for respiratory failure is combination of ILD + CHF; this does not appear to be rapidly progressive fibrosis. She improved with mechanical ventilation, steroids, management of all co-morbidities, and continues to have problems weaning. Weaning trials have not been successful due to concomitant medical issues including congestive heart failure, chronic renal disease, volume overload, with worsening anemia. She is scheduled for CT chest, and if she has effusions that are large enough, thoracentesis may provide some relief. She has advanced interstitial lung disease, and she require longer weaning compared to a patient without this. Continue IV steroids for inflammation from ILD, and progressive weaning trials as tolerated. Thank you for this consult. History of Present Illness History of Present Illness Consult date: 10/29/23 Chief complaint: acuute hypercapnic respiratory failure Narrative: October 03, 2023 in ICU 6, consult requested by Dr Matias for possible ILD NEW: Allison Ji is a 73-year-old female with interstitial lung disease on home oxygen 2 L a minute, was admitted September 27 with increasing shortness of breath and initial ABG showed pH of 7.19, pCO2 of 98, PO2 of 97 on 2 L nasal cannula, bicarb of 37, pCO2 and change in mental status; she appeared to have pneumonia, all cultures so far are negative. She has been on empiric Rocephin and doxycycline. Procalcitonin was negative. She had acute on chronic renal insufficiency, she has congestive heart failure, was not able to tolerate BiPAP, was intubated Sep 27 with improvement in hypercapnia, has been sedated with hypercapnia and hypoxemia controlled on CMV settings, however has difficulty with weaning. She has pleural effusions. She failed PSV weaning trials using TV 350 ml, 30%, PEEP 5. She gets increased heart rate and resp rate with weaning attempts. She was diagnosed with ILD 2 years ago, sees Dr Blayne Maldonado at [facility]; the patient has ashley on O2 around the clock at home with increased shortness of breath over the last several months. She has not been on anti-fibrotics. She has no history of autoimmune conditions, and no family history of same. She has no exposure to birds, fumes, environmental exposures, moist environments, She has no hobbies that would predispose to ILD. DATA * 09/30/2023 echo; Complete two-dimensional, color flow and Doppler transthoracic echocardiogram is performed. 2. Left ventricular chamber dimension is normal. 3. Left ventricular systolic function is preserved, estimated at 50-55%. 4. The left ventri
[2023-10-03] MEDS: FENTANYL 2,500MCG/NS250ML(*CRX 2,500 MCG/250 ML BAG 10 MCG IV CONT (15:01)
[2023-10-03] MEDS: CENTRAL LINE FLUSH 10 ML IV PUSH ×2 (15:03→21:13)
[2023-10-03] MEDS: dexmedeTOMIDine 400 MCG/100 ML 400 MCG/100 ML BAG 14.88 MCG IV CONT (15:05)
[2023-10-03 16:48] LABS: Partial Thromboplastin Time > 200.0 Seconds (22.3-36.8)
[2023-10-03 16:52] LABS: Glucose Point of Care 116 mg/dl (65-105)
[2023-10-03] MEDS: ALBUMIN HUMAN 5% 25 GM/500 ML BTL IV CONT (17:09)
[2023-10-03] MEDS: ASPIRIN 81 MG CHEWABLE TABLET PO (17:09)
[2023-10-03 20:12] LABS: Glucose Point of Care 81 mg/dl (65-105)
[2023-10-03 21:14] LABS: Glucose Point of Care 56 mg/dl (65-105)
[2023-10-03] MEDS: DEXTROSE 50% 25 GM/50 ML SYRINGE IV PUSH ×2 (21:22→23:38)
[2023-10-03 21:37] LABS: Glucose Point of Care 36 mg/dl (65-105)
[2023-10-03 21:49] LABS: Glucose Point of Care 132 mg/dl (65-105)
[2023-10-03] MEDS: dexmedeTOMIDine 400 MCG/100 ML 400 MCG/100 ML BAG 15.94 MCG IV CONT (23:00)
[2023-10-04] VITALS (74 sets, daily range): BP systolic 84–135; BP diastolic 39–75; PULSE 25–154; RESP 12–98; TEMP 36.2–38.1; O2SAT 92–100
[2023-10-04] LABS: Glucose Point of Care 72 mg/dl (65-105)
[2023-10-04] LABS: Glucose Point of Care 117 mg/dl (65-105)
[2023-10-04] LABS: Glucose Point of Care 62 mg/dl (65-105)
[2023-10-04] MEDS: MIDAZOLAM HCL (*CRX) 2 MG/2 ML VIAL IV PUSH (00:27)
[2023-10-04] MEDS: MIDAZOLAM 100MG/NS 100ML(*CRX) 100 MG/100 ML BAG IV CONT (00:40)
[2023-10-04 00:48] LABS: Partial Thromboplastin Time > 200.0 Seconds (22.3-36.8)
[2023-10-04] MEDS: DEXTROSE 5%/0.9% SOD CHL 1,000 ML 50 ML IV CONT ×2 (00:56→21:56)
[2023-10-04] MEDS: IPRATROPIUM 0.5 MG/ALBUTEROL SULFATE 2.5 MG AMPUL.NEB 3 ML INHALATION ×4 (02:51→20:06)
[2023-10-04 03:16] LABS: Glucose Point of Care 49 mg/dl (65-105)
[2023-10-04] MEDS: DEXTROSE 50% 25 GM/50 ML SYRINGE IV PUSH ×2 (03:18→08:33)
[2023-10-04 04:01] LABS: Glucose Point of Care 78 mg/dl (65-105)
[2023-10-04 05:17] LABS: Base Excess ABG 12.3 mEq/l (+/-2.0); Carboxyhemoglobin 1.2 % THb (0-2.0); Fractional Inspired Oxygen 30 %; HCO3 ABG 37.5 mEq/l (22.0-26.0); Methemoglobin ABG 0.2 %THb (0-1.5); Oxygen Content ABG 7.1 %vol (16.0-22.0); Oxygen Saturation ABG 97.2 % (95.0-100.0); Oxyhemoglobin 95.4 % THb (90.0-100.0); PCO2 ABG 57.1 mmHg (35.0-45.0); PO2 ABG 93.8 mmHg (80.0-100.0); PO2 FiO2 Ratio Arterial Blood 3.13 %; Reduced Hemoglobin 3.2 %THb (0-5.0); pH ABG 7.435 (7.350-7.450)
[2023-10-04 05:20] LABS: Device VENTILATOR; Modified Allen's Test Pass; Site Drawn RIGHT RADIAL; Total Hemoglobin 5.1 g/dL (12.0-18.0)
[2023-10-04 05:21] LABS: Arterial Blood Gas PEEP 5 cmH2O; Arterial Blood Gas Tidal Volume 250 ml; Arterial Blood Gas Vent Mode CMV; Arterial Blood Gas Ventilator rate 12 /MIN
[2023-10-04 05:50] LABS: Basophils Percent Auto 0.1 % (0.2-1.2); Eosinophils Absolute Auto 0.1 K/mm3 (0-0.3); Eosinophils Percent Auto 0.3 % (0-4.4); Immature Granulocyte Absolute 0.12 K/mm3 (0.00-0.031); Immature Granulocyte Percent A 0.5 % (0-0.5); Lymphocytes Absolute Auto 1.76 K/mm3 (0.9-3.2); Lymphocytes Percent Auto 7.4 % (18.3-44.2); Mean Corpuscular HGB Conc 31.3 g/dl (32-36); Mean Corpuscular Hemoglobin 29.8 pg (26-34); Mean Corpuscular Volume 95.2 fl (80-100); Mean Platelet Volume 10.2 fl (7.4-10.4); Neutrophils Absolute Auto 20.7 K/mm3 (1.3-6.7); Neutrophils Percent Auto 87.7 % (45.5-73.1); Nucleated Red Blood Cells Perc 0.1 % (0.0-0.2); Platelet Count Result 153 k/mm3 (150-375); Red Blood Count 1.68 M/mm3 (4.2-5.4); Red Cell Distribution Width 19.8 % (11.5-14.5); White Blood Count 23.7 K/mm3 (4.5-10.0)
[2023-10-04 05:56] LABS: Ammonia < 9 umol/L (9-30)
[2023-10-04 06:05] LABS: INR 1.4; Partial Thromboplastin Time 31.8 Seconds (22.3-36.8); Prothrombin Time 17.8 Seconds (11.1-14.7)
[2023-10-04 06:06] LABS: Alanine Aminotransferase 15 U/L (6-35); Albumin Level 2.7 g/dL (3.5-5.1); Alkaline Phosphatase 43 U/L (38-126); Anion Gap 8 mmol/L (4-12); Aspartate Amino Transferase 28 U/L (14-36); Bilirubin,Total 0.3 mg/dL (0.2-1.3); Blood Urea Nitrogen 83 mg/dL (7-17); Calcium 8.1 mg/dL (8.4-10.2); Carbon Dioxide 36 mmol/L (22-30); Chloride 102 mmol/L (98-107); Estimated CRCL calculation 24 ml/min; Estimated Glomerular Filt Rate 44; Glucose 199 mg/dL (65-110); Magnesium 1.9 mg/dL (1.6-2.3); Phosphorus 4.5 mg/dL (2.5-4.5); Potassium 3.4 mmol/L (3.4-5.0); Sodium 146 mmol/L (137-145); Triglycerides 60 mg/dL (<150)
[2023-10-04] MEDS: CENTRAL LINE FLUSH 10 ML IV PUSH ×3 (06:51→21:55)
[2023-10-04 06:57] LABS: Alanine Aminotransferase 16 U/L (6-35); Albumin Level 2.8 g/dL (3.5-5.1); Alkaline Phosphatase 46 U/L (38-126); Anion Gap 6 mmol/L (4-12); Aspartate Amino Transferase 29 U/L (14-36); Bilirubin,Total 0.3 mg/dL (0.2-1.3); Blood Urea Nitrogen 86 mg/dL (7-17); Calcium 8.6 mg/dL (8.4-10.2); Carbon Dioxide 37 mmol/L (22-30); Chloride 101 mmol/L (98-107); Estimated CRCL calculation 24 ml/min; Estimated Glomerular Filt Rate 44; Glucose 83 mg/dL (65-110); Potassium 3.5 mmol/L (3.4-5.0); Sodium 144 mmol/L (137-145)
[2023-10-04 07:45] LABS: Anisocytosis 1+; Ovalocytes 1+; Platelet Estimate Adequate (Adequate); Schistocytes None Seen
[2023-10-04 07:52] LABS: Hypochromasia 2+; Macrocytosis 1+ (NORMAL)
[2023-10-04] MEDS: BISACODYL 10 MG SUPPOSITORY RECTAL (08:06)
[2023-10-04] MEDS: POTASSIUM CHLORIDE 20 MEQ PACKET (FOR LIQUID) 40 MEQ FEED TUBE (08:06)
[2023-10-04] MEDS: ATORVASTATIN 40 MG TABLET PO (08:06)
[2023-10-04] MEDS: polyethylene glycoL 3350 17 GM POWD.PACK FEED TUBE (08:06)
[2023-10-04] MEDS: methylPREDNISolone SOD SUCC 40 MG VIAL IV PUSH (08:06)
[2023-10-04 08:37] LABS: Glucose Point of Care 63 mg/dl (65-105)
[2023-10-04] MEDS: SODIUM CHLORIDE 0.9% IV 250 ML 30 ML IV CONT (08:44)
[2023-10-04] MEDS: PANTOPRAZOLE SODIUM IV 40 MG VIAL IV PUSH ×2 (08:44→21:55)
[2023-10-04] MEDS: MINERAL OIL/WHITE PETROLATUM OINTMENT 1 APPLIC EACH EYE ×2 (08:45→21:55)
--- NOTE | 2023-10-04 08:52 | WPDINTPN ---
Progress Note: A&P Assessment and Plan (1) Acute hypercapnic respiratory failure: Code(s): J96.02 - Acute respiratory failure with hypercapnia Status: Acute Assessment and Plan: 09/27: Patient presented with altered mental status, respiratory distress was found to be an acute hypercapnic respiratory failure, not amenable to BiPAP, was successfully intubated in the ER on 09/28/2023 -acute respiratory failure could be related to baseline interstitial lung disease , pleural effusions, general debility and CHF exacerbation, possible pneumonia - In the ER patient initial ABG showed pH of 7.19, pCO2 of 98, PO2 of 97 on 2 L nasal cannula, Bicarb of 37, pCO2 -patient was placed on BiPAP, repeat ABG showed pH of 7.13, pCO2 of 119, PO2 of 144 on BiPAP /, 80% FiO2 Currently patient on CMV mode of ventilation with low tidal volume strategy to avoid barotrauma and volume trauma. Tidal volume to 50 rate 12 FiO2 30% and peep of 5 -ABGs and chest x-ray reviewed -continue bronchodilators 09/27: Continue course of ceftriaxone, doxycycline -nasal MRSA screen negative. Vancomycin was discontinued -continue fentanyl and Precedex infusion, maintain a RASS of 0 to - 2, daily sedation holiday - Lasix IV ordered - 10/01 06/22 PSV trial was attempted after sedation holiday but patient quickly failed due to increased heart rate tachypnea low tidal volumes. patient changed to / and tolerated for less than an hour - 10/02 patient trial again this morning and went into apnea ventilation. sedation is on hold and will make another attempt request IR for ultrasound-guided thoracentesis on the right which may or may not improve chances of weaning from the ventilator. Will have to coordinate with radiology regarding anticoagulation patient is on 10/03 ABG and chest x-ray reviewed. hold weaning trial due to hemodynamic instability (2) Anemia: Code(s): D64.9 - Anemia, unspecified Status: Acute Assessment and Plan: patient has chronic anemia but has had drastic drop in hemoglobin this morning. Her hemoglobin was 5 this morning she was on heparin drip which has been supratherapeutic despite following protocol and has been on hold now since last night when her PTT was more than 200. she has no sign of obvious bleeding with no bowel movement and tube feed residual was checked and was clear. She does have edema of both upper extremities and the skin appears bluish but no specific hematoma or bruise. will hold heparin infusion at this time I will check CT scan of chest abdomen pelvis to rule out any retroperitoneal or intra-abdominal hemorrhage her PTT is in normal range and INR only 1.4 and hence she will not benefit any other blood products or protamine will transfuse 2 units of PRBC and recheck hemoglobin (3) Interstitial lung disease: Code(s): J84.9 - Interstitial pulmonary disease, unspecified Status: Chronic Assessment and Plan: Shortness of breath, hypercapnic respiratory failure could be related to interstitial lung disease flare -patient was given 1 dose of Solu-Medrol - I have decreased Solu-Medrol to 40 mg IV q.day (patient was taking prednisone at home) -continue bronchodilators - patient evaluated by Pulmonary (4) CHF (congestive heart failure): Code(s): I50.9 - Heart failure, unspecified Status: Acute Assessment and Plan: Chest x-ray and CT chest show pulmonary edema and/or pneumonia -elevated proBNP 63355 -chest x-ray with possible pulmonary edema versus pneumonia, - who Lasix due to low blood pressure Echo Summary 1. Complete two-dimensional, color flow and Doppler transthoracic echocardiogram is performed. 2. Left ventricular chamber dimension is normal. 3. Left ventricular systolic function is preserved, estimated at 50-55%. 4. The left ventricular diastolic function is abnormal. 5. E/e' 27 is elevated. 6. Mechanical aortic valve. 7. There is trace regurgitation
[2023-10-04 08:58] LABS: Glucose Point of Care 111 mg/dl (65-105)
--- NOTE | 2023-10-04 10:24 | PCNFU ---
Nutrition Follow-Up Complete: Increased protein energy needs related to mechanical ventilation as evidenced by need for full tube feeding Meet estimated protein energy needs - Goal being met at ~100% EER and 100% estimated protein needs with current TF at goal rate Goal: Pt current nutrition is Vital AF 1.2 @ goeal rate 45 ml/h: 1188 kcal, 74 g protein, 803 ml free water with 30 ml water flushes q 4 h. Nutrition recommendation: May consider turning tube feeding rate to trickle @ 20 ml/h or pausing TF until MAP improves >65 Last recorded weight is 43 kg. Bowel Motility: +1 BM 10/03/23 Labs Reviewed: Hgb 5.0, Hct 16.0, GFR 44, BUN 86, Cre 1.2 Meds Noted: Fentanyl, versed, protonix, solumedrol Skin: Within limits Additional Notes: Pt developed hypotension and low hemoglobin today. US scheduled. Pressors off at this time. Monitoring tube feeding tolerance, weights, labs, plan of care Follow daily in ICU rounds, reassess Tuesdays and Fridays
[2023-10-04] MEDS: METOPROLOL TARTRATE INJ 5 MG/5 ML VIAL (11:01)
[2023-10-04 11:46] LABS: Glucose Point of Care 78 mg/dl (65-105)
[2023-10-04 11:50] LABS: Hematocrit 28.2 % (37.0-47.0); Hemoglobin 9.1 g/dL (12.0-15.0)
[2023-10-04] MEDS: NOREPINEPHRINE 8 MG/D5W 250 ML 8 MG/250 ML BAG 9.38 MG IV CONT (12:11)
[2023-10-04] MEDS: FENTANYL 2,500MCG/NS250ML(*CRX 2,500 MCG/250 ML BAG 12.5 MCG IV CONT (14:31)
[2023-10-04 14:59] LABS: Glucose Point of Care 136 mg/dl (65-105)
--- NOTE | 2023-10-04 15:15 | PM.IMPN ---
Progress Note: A&P Assessment and Plan (1) Acute hypercapnic respiratory failure: Code(s): J96.02 - Acute respiratory failure with hypercapnia Status: Acute Assessment and Plan: Patient presented on 09/27 with altered mental status and respiratory distress. CT Ch/A/P showing diffuse lung disease likely moderate pulm edema, mod Rt and small Lt pleural effusion, small volume of ascites and GB distention. AB.19/98/97 on 2 L. BiPAP attempted but repeat ABG 7.13/119/144 on BiPAP. Patient was intubated in ED and admitted to ICU Acute respiratory failure could be related to ILD, pleural effusions, general debility, CHF exacerbation and/or pneumonia Abx started as Rocephin, Doxy and Vanco once approrpiate cultures obtained. MRSA nasal screen negative. Vancomycin was discontinued Sputum Cx negative. BCx NGTD. WBC was up to 30K but now trending down. Lasix IV once 10/01 Patient remains intubated. Spontaneous breathing trial unsuccessful 10/01 ABG 7.43/57/[address] Chest showing diffuse lung disease stable from 09/27 Appreciate associate professor of english input. Continue bronchodilators Continue sedation and mechanical ventilation. Plan for thoracentesis when able (2) Anemia: Code(s): D64.9 - Anemia, unspecified Status: Acute Assessment and Plan: Hgb 9.6 on admission but has dropped to 7.8 yesterday. Hgb dropped further to 5 today. (ABG also showing Hgb at 5.1) BP soft as well. No evidence of acute blood loss. No schistocytes. TBili normal. Heparin stopped. She was transfused 2U PRBC. Repeat Hgb up to 9.1. Monitor for evidence of bleeding (3) Interstitial lung disease: Code(s): J84.9 - Interstitial pulmonary disease, unspecified Status: Chronic Assessment and Plan: Hypercapnic respiratory failure could be related to interstitial lung disease flare Patient takes Prednisone at home Patient was started on Solu-Medrol Pulmonary consulted and appreciate their input (4) CHF (congestive heart failure): Code(s): I50.9 - Heart failure, unspecified Status: Acute Assessment and Plan: CT chest show pulmonary edema and pleural effusions. Consider pneumonia BNP 91017. Echo showing normal LV systolic function with EF 50-55%, abnormal LV diastolic function, mechanical AV with trace regurg, mild-mod MR and mild pulmonary HTN. She received IV Lasix 10/01 with good UOP. Repeat CT as above Diuresis as tolerated. (5) Essential (primary) hypertension: Code(s): I10 - Essential (primary) hypertension Status: Acute Assessment and Plan: AntiHTN agents on hold since patient is on mechanical ventilation and sedation and now with HoTN Monitor (6) Type 2 diabetes mellitus without complications: Code(s): E11.9 - Type 2 diabetes mellitus without complications Status: Acute Assessment and Plan: A1c is 6.3 this admission. The patient's blood glucose was reviewed on 10/03 Glucose dropped to 49 early this morning treated appropriately. Continue AccuCheks covering with sliding scale. Hypoglycemia protocol available as needed. Continue to monitor (7) Chronic kidney disease, stage 3: Code(s): N18.30 - Chronic kidney disease, stage 3 unspecified Status: Chronic Assessment and Plan: Patient has a history of chronic kidney disease, unknown baseline Cr 2.2 on admission and climbed to 2.7. Nephrology consulted. Potassium 5.4 on admission but normal since. No acidosis. She was initially given an gentle 1 L IV fluids due to volume overload; Nephrology was consulted Renal US 09/27: Mild atrophy of right kidney, no hydronephrosis, small volume ascites Creatinine has trended down and not at 1 BUN elevated but probably related to steroids. Monitor urine output, renal function electrolytes (8) Mechanical heart valve present: Code(s): Z95.2 - Presence of prosthetic heart valve Status: Acute Assessment and Plan:
[2023-10-05] VITALS (33 sets, daily range): BP systolic 97–137; BP diastolic 42–74; PULSE 63–106; RESP 12–19; TEMP 36.4–37.7; O2SAT 95–100
[2023-10-05 00:41] LABS: Basophils Absolute Auto 0.1 K/mm3 (0.0-0.1); Basophils Percent Auto 0.2 % (0.2-1.2); Hematocrit 32.2 % (37.0-47.0); Hemoglobin 10.4 g/dL (12.0-15.0); Immature Granulocyte Absolute 0.34 K/mm3 (0.00-0.031); Immature Granulocyte Percent A 0.9 % (0-0.5); Lymphocytes Absolute Auto 1.98 K/mm3 (0.9-3.2); Mean Corpuscular HGB Conc 32.3 g/dl (32-36); Mean Corpuscular Hemoglobin 29.9 pg (26-34); Mean Corpuscular Volume 92.5 fl (80-100); Mean Platelet Volume 11.1 fl (7.4-10.4); Monocytes Absolute Auto 1.9 K/mm3 (0.1-0.6); Monocytes Percent Auto 4.8 % (2.6-8.5); Neutrophils Absolute Auto 35.6 K/mm3 (1.3-6.7); Neutrophils Percent Auto 89.1 % (45.5-73.1); Nucleated Red Blood Cells Perc 0.1 % (0.0-0.2); Platelet Count Result 201 k/mm3 (150-375); Red Blood Count 3.48 M/mm3 (4.2-5.4); Red Cell Distribution Width 17.4 % (11.5-14.5); White Blood Count 39.9 K/mm3 (4.5-10.0)
[2023-10-05 00:49] LABS: Glucose Point of Care 178 mg/dl (65-105)
[2023-10-05 00:49] LABS: Glucose Point of Care 178 mg/dl (65-105)
[2023-10-05 01:03] LABS: Anisocytosis 1+; Hypochromasia 2+; Ovalocytes 1+; Platelet Estimate Adequate (Adequate); Schistocytes None Seen; Smudge Cells PRESENT
[2023-10-05] MEDS: IPRATROPIUM 0.5 MG/ALBUTEROL SULFATE 2.5 MG AMPUL.NEB 3 ML INHALATION ×4 (02:12→20:33)
[2023-10-05 05:21] LABS: Alveolar/Arterial O2 Gradient 62.1 mmHg; Base Excess ABG 2.1 mEq/l (+/-2.0); Fractional Inspired Oxygen 30 %; HCO3 ABG 29.7 mEq/l (22.0-26.0); Oxygen Saturation ABG 94.2 % (95.0-100.0); Oxyhemoglobin 94.6 % THb (90.0-100.0); PO2 ABG 79.1 mmHg (80.0-100.0); PO2 FiO2 Ratio Arterial Blood 2.64 %; Total Hemoglobin 11.2 g/dL (12.0-18.0); pH ABG 7.299 (7.350-7.450)
[2023-10-05 05:24] LABS: Arterial Blood Gas PEEP 5 cmH2O; Arterial Blood Gas Tidal Volume 250 ml; Arterial Blood Gas Vent Mode CMV; Arterial Blood Gas Ventilator rate 12 /MIN; Device VENTILATOR; Modified Allen's Test Pass; PCO2 ABG 61.9 mmHg (35.0-45.0); Site Drawn RIGHT RADIAL
[2023-10-05 05:39] LABS: Basophils Absolute Auto 0.1 K/mm3 (0.0-0.1); Basophils Percent Auto 0.2 % (0.2-1.2); Eosinophils Absolute Auto 0.1 K/mm3 (0-0.3); Eosinophils Percent Auto 0.2 % (0-4.4); Hematocrit 33.5 % (37.0-47.0); Hemoglobin 10.7 g/dL (12.0-15.0); Immature Granulocyte Absolute 0.43 K/mm3 (0.00-0.031); Lymphocytes Absolute Auto 2.12 K/mm3 (0.9-3.2); Lymphocytes Percent Auto 4.8 % (18.3-44.2); Mean Corpuscular HGB Conc 31.9 g/dl (32-36); Mean Corpuscular Hemoglobin 30.1 pg (26-34); Mean Corpuscular Volume 94.1 fl (80-100); Mean Platelet Volume 10.3 fl (7.4-10.4); Monocytes Absolute Auto 2.3 K/mm3 (0.1-0.6); Monocytes Percent Auto 5.2 % (2.6-8.5); Neutrophils Absolute Auto 39.5 K/mm3 (1.3-6.7); Neutrophils Percent Auto 88.6 % (45.5-73.1); Nucleated Red Blood Cells Perc 0.1 % (0.0-0.2); Platelet Count Result 200 k/mm3 (150-375); Red Blood Count 3.56 M/mm3 (4.2-5.4); Red Cell Distribution Width 17.8 % (11.5-14.5); White Blood Count 44.5 K/mm3 (4.5-10.0)
[2023-10-05] MEDS: CENTRAL LINE FLUSH 10 ML IV PUSH ×3 (05:41→20:30)
[2023-10-05 05:53] LABS: INR 1.1; Prothrombin Time 14.3 Seconds (11.1-14.7)
[2023-10-05 05:55] LABS: Alanine Aminotransferase 28 U/L (6-35); Albumin Level 3.1 g/dL (3.5-5.1); Alkaline Phosphatase 60 U/L (38-126); Anion Gap 7 mmol/L (4-12); Aspartate Amino Transferase 75 U/L (14-36); Bilirubin,Total 0.4 mg/dL (0.2-1.3); Blood Urea Nitrogen 109 mg/dL (7-17); Calcium 8.7 mg/dL (8.4-10.2); Carbon Dioxide 33 mmol/L (22-30); Chloride 103 mmol/L (98-107); Estimated CRCL calculation 18 ml/min; Estimated Glomerular Filt Rate 30; Glucose 151 mg/dL (65-110); Phosphorus 5.4 mg/dL (2.5-4.5); Sodium 143 mmol/L (137-145)
[2023-10-05 06:59] LABS: Anisocytosis 1+; Basophilic Stippling 1+; Hypochromasia 1+; Platelet Estimate Adequate (Adequate)
[2023-10-05 07:00] LABS: Ovalocytes 1+; Schistocytes None Seen; Target Cells 1+
[2023-10-05] MEDS: MINERAL OIL/WHITE PETROLATUM OINTMENT 1 APPLIC EACH EYE ×2 (09:14→20:29)
[2023-10-05] MEDS: polyethylene glycoL 3350 17 GM POWD.PACK FEED TUBE (09:14)
[2023-10-05] MEDS: methylPREDNISolone SOD SUCC 40 MG VIAL IV PUSH (09:14)
[2023-10-05] MEDS: ATORVASTATIN 40 MG TABLET PO (09:14)
[2023-10-05] MEDS: PANTOPRAZOLE SODIUM IV 40 MG VIAL IV PUSH ×2 (09:14→20:29)
[2023-10-05] MEDS: ALBUMIN HUMAN 25% 25 GM/100 ML 100 ML IVPB ×3 (09:15→20:29)
[2023-10-05 09:29] LABS: Glucose Point of Care 155 mg/dl (65-105)
[2023-10-05 09:29] LABS: Glucose Point of Care 162 mg/dl (65-105)
--- NOTE | 2023-10-05 09:52 | WPDINTPN ---
Progress Note: A&P Assessment and Plan (1) Acute hypercapnic respiratory failure: Code(s): J96.02 - Acute respiratory failure with hypercapnia Status: Acute Assessment and Plan: 09/27: Patient presented with altered mental status, respiratory distress was found to be an acute hypercapnic respiratory failure, not amenable to BiPAP, was successfully intubated in the ER on 09/28/2023 -acute respiratory failure could be related to baseline interstitial lung disease , pleural effusions, general debility and CHF exacerbation, possible pneumonia - In the ER patient initial ABG showed pH of 7.19, pCO2 of 98, PO2 of 97 on 2 L nasal cannula, Bicarb of 37, pCO2 -patient was placed on BiPAP, repeat ABG showed pH of 7.13, pCO2 of 119, PO2 of 144 on BiPAP 18/, 80% FiO2 Currently patient on CMV mode of ventilation with low tidal volume strategy to avoid barotrauma and volume trauma. Tidal volume to 50 rate 12 FiO2 30% and peep of 5 -ABGs and chest x-ray reviewed -continue bronchodilators 09/27: Continue course of ceftriaxone, doxycycline -nasal MRSA screen negative. Vancomycin was discontinued -continue fentanyl and Precedex infusion, maintain a RASS of 0 to - 2, daily sedation holiday - Lasix IV ordered - 10/01 06/22 PSV trial was attempted after sedation holiday but patient quickly failed due to increased heart rate tachypnea low tidal volumes. patient changed to / and tolerated for less than an hour - 10/02 patient trial again this morning and went into apnea ventilation. sedation is on hold and will make another attempt request IR for ultrasound-guided thoracentesis on the right which may or may not improve chances of weaning from the ventilator. Will have to coordinate with radiology regarding anticoagulation patient is on 10/[address] IMPRESSION: 1. Diffuse lung disease, stable from 09/28/2023, consistent with pulmonary edema versus pneumonia. 2. Small pleural effusions, right worse than left. 10/04 ABG and chest x-ray reviewed. increase tidal volume to 300 rate to 14 (2) Anemia: Code(s): D64.9 - Anemia, unspecified Status: Acute Assessment and Plan: 10/03 patient has chronic anemia but has had drastic drop in hemoglobin this morning. Her hemoglobin was 5 this morning she was on heparin drip which has been supratherapeutic despite following protocol and has been on hold now since last night when her PTT was more than 200. she has no sign of obvious bleeding with no bowel movement and tube feed residual was checked and was clear. She does have edema of both upper extremities and the skin appears bluish but no specific hematoma or bruise. will hold heparin infusion at this time CT scan of chest abdomen pelvis was done and did not show any retroperitoneal or intra-abdominal bleeding her PTT is in normal range and INR only 1.4 and hence she will not benefit any other blood products or protamine patient was transfuse 2 units of PRBC and hemoglobin has been stable and will be continue to monitor she had 1 bowel movement which was dark and black suggestive of GI bleeding continue Protonix consult GI continue hold anticoagulation for now (3) Interstitial lung disease: Code(s): J84.9 - Interstitial pulmonary disease, unspecified Status: Chronic Assessment and Plan: Shortness of breath, hypercapnic respiratory failure could be related to interstitial lung disease flare -patient was given 1 dose of Solu-Medrol - I have decreased Solu-Medrol to 40 mg IV q.day (patient was taking prednisone at home) -continue bronchodilators - patient evaluated by Pulmonary (4) CHF (congestive heart failure): Code(s): I50.9 - Heart failure, unspecified Status: Acute Assessment and Plan: Chest x-ray and CT chest show pulmonary edema and/or pneumonia -elevated proBNP 08843 -chest x-ray with possible pulmonary edema versus pneumonia, - who Lasix due to low blood pressure Echo Summary 1.
[2023-10-05] MEDS: MIDAZOLAM 100MG/NS 100ML(*CRX) 100 MG/100 ML BAG IV CONT (11:00)
--- NOTE | 2023-10-05 12:18 | WPDGICN ---
Assessment and Plan Assessment and plan (1) GI bleeding: Code(s): K92.2 - Gastrointestinal hemorrhage, unspecified Status: Acute Assessment and Plan: report of melena and acute onset of h/h blood thinner on hold- coumadin has been discontinued on admission and was on heparin gtt instead will proceed with EGD probably tomorrow iv protonix for now monitor for more signs of bleeding (2) Acute hypercapnic respiratory failure: Code(s): J96.02 - Acute respiratory failure with hypercapnia Status: Acute Assessment and Plan: intubated (3) Melena: Code(s): K92.1 - Melena Status: Acute Assessment and Plan: protonix (4) Acute on chronic blood loss anemia: Code(s): D62 - Acute posthemorrhagic anemia Status: Acute Assessment and Plan: hgb improved after blood transfusion (5) Chronic anticoagulation: Code(s): Z79.01 - MCC (current) use of anticoagulants Status: Acute (6) Type 2 diabetes mellitus: Code(s): E11.9 - Type 2 diabetes mellitus without complications Status: Acute (7) Leukocytosis: Code(s): D72.829 - Elevated white blood cell count, unspecified Status: Acute GI Consult Note Consult date/time: 10/05/23 12:18 Reason for consult: melena, acute on chronic anemia HPI: Allison Ji is a 73 year old female with significant past medical history of interstitial lung disease, coronary artery disease status post CABG, mechanical AV valve replacement on Coumadin, history of hypertension, hyperlipidemia, diabetes, chronic kidney disease stage 3, history of kidney stones, congestive heart failure presented the ED on 09/28/2023 with altered mental status, respiratory distress ongoing for approximately 48 hours prior to admission. History is obtained by records since she is intubated, she came with worsening hypercapneic respiratory failure and intubated, was on levophed also noted leukocytosis. INR 4 on admission but coumadin discontinued since, now on heparin gtt however had acute drop in hgb 5- received blood transfusion now up to 10.7 (heparin on hold today given recent GIB). BP is stable, off pressors. Review of Systems Review of Systems: ROS unobtainable: Yes unobtainable due to endotracheal tube and unobtainable due to mental status PMFSH Past Medical History Medical History (Updated 10/05/23 @ 12:24 by Claudio Myers MD) Acute on chronic blood loss anemia Anxiety Cerebrovascular accident Chronic anticoagulation Chronic interstitial lung disease Chronic kidney disease, stage 3 Congestive heart failure Coronary artery disease Essential hypertension Gastroesophageal reflux disease Leukocytosis Melena Paroxysmal atrial fibrillation Shingles Type 2 diabetes mellitus Surgical History Surgical History (Updated 09/28/23 @ 15:32 by Edelmira Mock PA-C) History of coronary artery bypass graft History of hysterectomy History of mechanical aortic valve replacement Family History Family History Mother Patient's mother is Family history of coronary artery disease, Onset Age: 65 Father Patient's father is Other Diabetes mellitus Family history of cardiovascular disease Hypertension Social History Social History (Updated 09/28/23 @ 15:32 by Edelmira Mock PA-C) Social History: Surrogate medical decision maker: Delta Ji, spouse. Code status: Full code. Smoking status: Never smoker Second hand tobacco smoke exposure: No Alcohol intake: never Substance use: never Substance use type: does not use Do You Feel Safe in your Home?: Yes Lack of Transportation: No Lack of Food: Never True Current Housing: I Have Housing Concerned About Future Housing: No Difficulty Paying Gas/Electric Bills: No Difficulty Paying for Meds: No Currently Unemployed:
--- NOTE | 2023-10-05 12:24 | P.PNNP_ITS ---
Progress Note: A&P Assessment and Plan (1) ED (acute kidney injury): Code(s): N17.9 - Acute kidney failure, unspecified Status: Acute Assessment and Plan: * improvement noted if not back to [facility] * complicated by mild hyperkalemia on admission as well * etiology likely multifactorial: * fluctuating hemodynamics * possible prerenal factors * medications (bactrim, losartan, diuretics) * CHF * Hypoxia * other(?) * evaluation to date noted: * renal ultrasound with right kidney atrophy * urine eosinophils negative * urine electrolytes non-prerenal * CPK okay * the creatinine had improved to normal. Dr. Junior signed off however her creatinine is back again today. * It turns out that her blood pressure dropped and so she had to go back on norepinephrine. Since then the blood pressure has come up and now she is off the norepinephrine. Hopefully this was just a case of higher creatinine because of the low blood pressure. Hopefully, since blood pressure is better again, the creatinine will come down again. (2) Chronic kidney disease, stage 3: Code(s): N18.30 - Chronic kidney disease, stage 3 unspecified Status: Chronic Assessment and Plan: * has been present for the last few years (per ) * presumably due to hypertension, diabetes, vascular disease, and age-related change * noted creatinine of 1.13mg/dl in February 2023 (GFR ~ 52cc/min) (3) Acute hypercapnic respiratory failure: Code(s): J96.02 - Acute respiratory failure with hypercapnia Status: Acute Assessment and Plan: * as noted on presentation with altered mentation * no improvement with attempts at BiPAP therapy * required intubation and mechanical ventilation * multiple possible etiologies: * known interstitial lung disease * CHF * infection/pneumonia(?) * on steroids and bronchodilators * continue ventilator support (4) Interstitial lung disease: Code(s): J84.9 - Interstitial pulmonary disease, unspecified Status: Chronic Assessment and Plan: * on steroids and bronchodilators * Pulmonary consulted * still on the ventilator (5) CHF (congestive heart failure): Code(s): I50.9 - Heart failure, unspecified Status: Acute Assessment and Plan: * admission CXR as well as CT chest demonstrate pulmonary edema and/or pneumonia * [place] [address] * Echo results show an EF of 50-55% but diastolic dysfunction is present as well as mild pulmonary hypertension. * given better hemodynamics and CXR findings, getting IV diuretics PRN (6) Essential (primary) hypertension: Code(s): I10 - Essential (primary) hypertension Status: Acute Assessment and Plan: * Blood pressure was low yesterday. * Antihypertensives are on hold. * We can fill these back in as she goes (7) Mechanical heart valve present: Code(s): Z95.2 - Presence of prosthetic heart valve Status: Acute Assessment and Plan: * mechanical aortic valve and on coumadin * follow PT/INR (8) Type 2 diabetes mellitus without complications: Code(s): E11.9 - Type 2 diabetes mellitus without complications Status: Acute Assessment and Plan: * follow accu-cheks * glycemic control per insurance billing clerk/hospitalist Subjective Date/time seen: 10/05/23 12:24 Interval history: The patient is on the ventilator. She is sedated. is in the room. We discussed the case.
--- NOTE | 2023-10-05 12:24 | PM.PNNEP ---
Progress Note: A&P Assessment and Plan (1) ED (acute kidney injury): Code(s): N17.9 - Acute kidney failure, unspecified Status: Acute Assessment and Plan: improvement noted if not [facility] to [facility] complicated by mild hyperkalemia on admission as well etiology likely multifactorial: fluctuating hemodynamics possible prerenal factors medications (bactrim, losartan, diuretics) CHF Hypoxia other(?) evaluation to date noted: renal ultrasound with right kidney atrophy urine eosinophils negative urine electrolytes non-prerenal CPK okay the creatinine had improved to normal. Dr. Junior signed off however her creatinine is back again today. It turns out that her blood pressure dropped and so she had to go back on norepinephrine. Since then the blood pressure has come up and now she is off the norepinephrine. Hopefully this was just a case of higher creatinine because of the low blood pressure. Hopefully, since blood pressure is better again, the creatinine will come down again. (2) Chronic kidney disease, stage 3: Code(s): N18.30 - Chronic kidney disease, stage 3 unspecified Status: Chronic Assessment and Plan: has been present for the last few years (per ) presumably due to hypertension, diabetes, vascular disease, and age-related change noted creatinine of 1.13mg/dl in February 2023 (GFR ~ 52cc/min) (3) Acute hypercapnic respiratory failure: Code(s): J96.02 - Acute respiratory failure with hypercapnia Status: Acute Assessment and Plan: as noted on presentation with altered mentation no improvement with attempts at BiPAP therapy required intubation and mechanical ventilation multiple possible etiologies: known interstitial lung disease CHF infection/pneumonia(?) on steroids and bronchodilators continue ventilator support (4) Interstitial lung disease: Code(s): J84.9 - Interstitial pulmonary disease, unspecified Status: Chronic Assessment and Plan: on steroids and bronchodilators Pulmonary consulted still on the ventilator (5) CHF (congestive heart failure): Code(s): I50.9 - Heart failure, unspecified Status: Acute Assessment and Plan: admission CXR as well as CT chest demonstrate pulmonary edema [place] [address] Echo results show an EF of 50-55% but diastolic dysfunction is present as well as mild pulmonary hypertension. given better hemodynamics and CXR findings, getting IV diuretics PRN (6) Essential (primary) hypertension: Code(s): I10 - Essential (primary) hypertension Status: Acute Assessment and Plan: Blood pressure was low yesterday. Antihypertensives are on hold. We can fill these back in as she goes (7) Mechanical heart valve present: Code(s): Z95.2 - Presence of prosthetic heart valve Status: Acute Assessment and Plan: mechanical aortic valve and on coumadin follow PT/INR (8) Type 2 diabetes mellitus without complications: Code(s): E11.9 - Type 2 diabetes mellitus without complications Status: Acute Assessment and Plan: follow accu-cheks glycemic control per on site nurse/hospitalist Subjective Date/time seen: 10/05/23 12:24 Interval history: The patient is on the ventilator. She is sedated. is in the room. We discussed the case. She is making some urine. It is clear and gold Exam Narrative: General: thin and well-nourished female in NAD Heart: normal S1 and S2; no rub or gallop Lungs: coarse breath sounds Abdomen: soft, nontender, nondistended, + bowel sounds Extremities: no cyanosis or clubbing; trace - 1+ edema Skin: no rash or subcu Objective Data Vital Signs Vital Signs: Vital Signs - 24 hr 10/04/23 14:11 10/04/23 14:13 10/04/23 14:31 Temperature Pulse Rate 93 97 98 Respiratory Rate 1
[2023-10-05 12:29] LABS: Glucose Point of Care 167 mg/dl (65-105)
--- NOTE | 2023-10-05 14:54 | PM.IMPN ---
Progress Note: A&P Assessment and Plan (1) Acute hypercapnic respiratory failure: Code(s): J96.02 - Acute respiratory failure with hypercapnia Status: Acute Assessment and Plan: Patient presented on 09/27 with altered mental status and respiratory distress. CT Ch/A/P showing diffuse lung disease likely moderate pulm edema, mod Rt and small Lt pleural effusion, small volume of ascites and GB distention. AB.19/98/97 on 2 L. BiPAP attempted but repeat ABG worse so patient was intubated in ED and admitted to ICU. Acute respiratory failure could be related to ILD, pleural effusions, general debility, CHF exacerbation and/or pneumonia. Abx started as Rocephin, Doxy and Vanco once approrpiate cultures obtained. MRSA nasal screen negative. Vancomycin was discontinued Sputum Cx negative. BCx negative. Lasix IV once 10/01 Patient remains intubated. Spontaneous breathing trial unsuccessful 10/01 CT Chest 10/03 showing diffuse lung disease stable from 09/27 and stable small pleural effusions R>L ABG 7.29/62/79 on MV. WBC back up to 44K Appreciate environmental management specialist input. Continue bronchodilators Continue sedation and mechanical ventilation. Plan for thoracentesis today (2) Hypotension: Code(s): I95.9 - Hypotension, unspecified Status: Acute Assessment and Plan: BP dropped yesterday requiring pressor support. Levophed started and up titrated to 5mcg/min Related to acute blood loss? Albumin started. She was transfused. Hgb better. BP improved as well and able to wean down levophed Levophed stopped this morning early hours Monitor (3) Anemia: Code(s): D64.9 - Anemia, unspecified Status: Acute Assessment and Plan: Hgb 9.6 on admission but dropped to 5 yesterday. (ABG also showing Hgb at 5.1) BP soft as well. No evidence of acute blood loss. No schistocytes. TBili normal. Heparin stopped. She was transfused 2U PRBC. Repeat Hgb up to 9.1 and now up to 10 range Monitor for evidence of bleeding (4) Interstitial lung disease: Code(s): J84.9 - Interstitial pulmonary disease, unspecified Status: Chronic Assessment and Plan: Hypercapnic respiratory failure could be related to interstitial lung disease flare Patient takes Prednisone at home Patient was started on Solu-Medrol Pulmonary consulted and appreciate their input (5) CHF (congestive heart failure): Code(s): I50.9 - Heart failure, unspecified Status: Acute Assessment and Plan: CT chest show pulmonary edema and pleural effusions. BNP 97022. Consider CHF vs pneumonia Echo showing normal LV systolic function with EF 50-55%, abnormal LV diastolic function, mechanical AV with trace regurg, mild-mod MR and mild pulmonary HTN. She received IV Lasix 10/01 with good UOP. Repeat CT as above Diuresis as tolerated. (6) Essential (primary) hypertension: Code(s): I10 - Essential (primary) hypertension Status: Acute Assessment and Plan: Anti-HTN agents on hold since patient is on mechanical ventilation and sedation and now with HoTN Albumin started. Off Levophed Monitor (7) Type 2 diabetes mellitus without complications: Code(s): E11.9 - Type 2 diabetes mellitus without complications Status: Acute Assessment and Plan: A1c is 6.3 this admission. The patient's blood glucose was reviewed on 10/04 Glucose dropped to 49 yesterday treated appropriately. Continue AccuCheks covering with sliding scale. Hypoglycemia protocol available as needed. Continue to monitor (8) Chronic kidney disease, stage 3: Code(s): N18.30 - Chronic kidney disease, stage 3 unspecified Status: Chronic Assessment and Plan: Patient has a history of chronic kidney disease, unknown baseline Cr 2.2 on admission and climbed to 2.7. Nephrology consulted. Potassium 5.4 on admission but normal since. No acidosis. She was initially given an gentle 1 L IV fluids due
[2023-10-05 15:51] LABS: Hemoglobin 8.5 g/dL (12.0-15.0); Mean Corpuscular HGB Conc 32.7 g/dl (32-36); Mean Corpuscular Hemoglobin 29.9 pg (26-34); Mean Corpuscular Volume 91.5 fl (80-100); Mean Platelet Volume 11.3 fl (7.4-10.4); Platelet Count Result 154 k/mm3 (150-375); Red Blood Count 2.84 M/mm3 (4.2-5.4); White Blood Count 34.2 K/mm3 (4.5-10.0)
[2023-10-05 16:04] LABS: Glucose Point of Care 210 mg/dl (65-105)
[2023-10-05] MEDS: FENTANYL 2,500MCG/NS250ML(*CRX 2,500 MCG/250 ML BAG 10 MCG IV CONT (17:00)
[2023-10-05 21:05] LABS: Glucose Point of Care 185 mg/dl (65-105)
[2023-10-06] VITALS (33 sets, daily range): BP systolic 104–145; BP diastolic 44–78; PULSE 70–131; RESP 14–25; TEMP 36.4–37.4; O2SAT 96–100
[2023-10-06 00:35] LABS: Glucose Point of Care 183 mg/dl (65-105)
[2023-10-06] MEDS: ALBUMIN HUMAN 25% 25 GM/100 ML 100 ML IVPB (02:15)
[2023-10-06] MEDS: IPRATROPIUM 0.5 MG/ALBUTEROL SULFATE 2.5 MG AMPUL.NEB 3 ML INHALATION ×4 (02:38→20:00)
[2023-10-06 04:03] LABS: Basophils Absolute Auto 0.1 K/mm3 (0.0-0.1); Basophils Percent Auto 0.2 % (0.2-1.2); Hematocrit 24.3 % (37.0-47.0); Hemoglobin 7.9 g/dL (12.0-15.0); Immature Granulocyte Absolute 0.34 K/mm3 (0.00-0.031); Immature Granulocyte Percent A 1.1 % (0-0.5); Lymphocytes Absolute Auto 1.28 K/mm3 (0.9-3.2); Lymphocytes Percent Auto 4.2 % (18.3-44.2); Mean Corpuscular HGB Conc 32.5 g/dl (32-36); Mean Corpuscular Hemoglobin 30.2 pg (26-34); Mean Corpuscular Volume 92.7 fl (80-100); Mean Platelet Volume 10.8 fl (7.4-10.4); Monocytes Absolute Auto 1.3 K/mm3 (0.1-0.6); Monocytes Percent Auto 4.2 % (2.6-8.5); Neutrophils Absolute Auto 27.7 K/mm3 (1.3-6.7); Neutrophils Percent Auto 90.3 % (45.5-73.1); Platelet Count Result 150 k/mm3 (150-375); Red Blood Count 2.62 M/mm3 (4.2-5.4); Red Cell Distribution Width 17.4 % (11.5-14.5); White Blood Count 30.7 K/mm3 (4.5-10.0)
[2023-10-06 04:13] LABS: Alanine Aminotransferase 18 U/L (6-35); Albumin Level 4.1 g/dL (3.5-5.1); Alkaline Phosphatase 38 U/L (38-126); Anion Gap 13 mmol/L (4-12); Aspartate Amino Transferase 34 U/L (14-36); Bilirubin,Total 0.6 mg/dL (0.2-1.3); Blood Urea Nitrogen 114 mg/dL (7-17); Carbon Dioxide 29 mmol/L (22-30); Chloride 103 mmol/L (98-107); Estimated CRCL calculation 19 ml/min; Estimated Glomerular Filt Rate 32; Glucose 171 mg/dL (65-110); Magnesium 2.3 mg/dL (1.6-2.3); Phosphorus 4.4 mg/dL (2.5-4.5); Potassium 4.2 mmol/L (3.4-5.0); Sodium 145 mmol/L (137-145)
[2023-10-06 04:14] LABS: INR 1.2; Prothrombin Time 16.1 Seconds (11.1-14.7)
[2023-10-06 04:27] LABS: Anisocytosis 1+; Ovalocytes 1+; Platelet Estimate Adequate (Adequate); Schistocytes Rare
[2023-10-06] MEDS: CENTRAL LINE FLUSH 10 ML IV PUSH ×3 (06:11→21:00)
[2023-10-06 06:12] LABS: Alveolar/Arterial O2 Gradient 88.6 mmHg; Base Excess ABG 2.2 mEq/l (+/-2.0); Fractional Inspired Oxygen 30 %; Oxygen Content ABG 14.8 %vol (16.0-22.0); Oxygen Saturation ABG 95.1 % (95.0-100.0); Oxyhemoglobin 94.4 % THb (90.0-100.0); PCO2 ABG 43.2 mmHg (35.0-45.0); PO2 ABG 74.5 mmHg (80.0-100.0); PO2 FiO2 Ratio Arterial Blood 2.48 %; Total Hemoglobin 11.1 g/dL (12.0-18.0); pH ABG 7.414 (7.350-7.450)
[2023-10-06 06:13] LABS: Device VENTILATOR; Modified Allen's Test Pass; Site Drawn LEFT RADIAL
[2023-10-06 06:14] LABS: Arterial Blood Gas PEEP 5 cmH2O; Arterial Blood Gas Tidal Volume 300 ml; Arterial Blood Gas Vent Mode CMV; Arterial Blood Gas Ventilator rate 14 /MIN
[2023-10-06] MEDS: MINERAL OIL/WHITE PETROLATUM OINTMENT 1 APPLIC EACH EYE ×2 (08:24→20:29)
[2023-10-06] MEDS: ATORVASTATIN 40 MG TABLET PO (08:24)
[2023-10-06] MEDS: PANTOPRAZOLE SODIUM IV 40 MG VIAL IV PUSH ×2 (08:24→20:28)
[2023-10-06] MEDS: polyethylene glycoL 3350 17 GM POWD.PACK FEED TUBE (08:24)
[2023-10-06 08:32] LABS: Glucose Point of Care 144 mg/dl (65-105)
--- NOTE | 2023-10-06 08:33 | WPDINTPN ---
Progress Note: A&P Assessment and Plan (1) Acute hypercapnic respiratory failure: Code(s): J96.02 - Acute respiratory failure with hypercapnia Status: Acute Assessment and Plan: 09/27: Patient presented with altered mental status, respiratory distress was found to be an acute hypercapnic respiratory failure, not amenable to BiPAP, was successfully intubated in the ER on 09/28/2023 -acute respiratory failure could be related to baseline interstitial lung disease , pleural effusions, general debility and CHF exacerbation, possible pneumonia - In the ER patient initial ABG showed pH of 7.19, pCO2 of 98, PO2 of 97 on 2 L nasal cannula, Bicarb of 37, pCO2 -patient was placed on BiPAP, repeat ABG showed pH of 7.13, pCO2 of 119, PO2 of 144 on BiPAP 05/07, 80% FiO2 Currently patient on CMV mode of ventilation with low tidal volume strategy to avoid barotrauma and volume trauma. Tidal volume to 50 rate 12 FiO2 30% and peep of 5 -ABGs and chest x-ray reviewed -continue bronchodilators 09/27: Continue course of ceftriaxone, doxycycline -nasal MRSA screen negative. Vancomycin was discontinued -continue fentanyl and Precedex infusion, maintain a RASS of 0 to - 2, daily sedation holiday - Lasix IV ordered - 10/01 06/22 PSV trial was attempted after sedation holiday but patient quickly failed due to increased heart rate tachypnea low tidal volumes. patient changed to / and tolerated for less than an hour - 10/02 patient trial again this morning and went into apnea ventilation. sedation is on hold and will make another attempt 10/[address] IMPRESSION: 1. Diffuse lung disease, stable from 09/28/2023, consistent with pulmonary edema versus pneumonia. 2. Small pleural effusions, right worse than left. 10/04 ABG and chest x-ray reviewed. increase tidal volume to 300 rate to 14 10/04 Status post right thoracentesis with 500 mL fluid removed 10/05 hold any weaning trial this morning since patient is going for an EGD Decrease Solumedrol dose (2) Anemia: Code(s): D64.9 - Anemia, unspecified Status: Acute Assessment and Plan: 10/03 patient has chronic anemia but has had drastic drop in hemoglobin this morning. Her hemoglobin was 5 this morning she was on heparin drip which has been supratherapeutic despite following protocol and has been on hold now since last night when her PTT was more than 200. she has no sign of obvious bleeding with no bowel movement and tube feed residual was checked and was clear. She does have edema of both upper extremities and the skin appears bluish but no specific hematoma or bruise. will hold heparin infusion at this time CT scan of chest abdomen pelvis was done and did not show any retroperitoneal or intra-abdominal bleeding her PTT is in normal range and INR only 1.4 and hence she will not benefit any other blood products or protamine patient was transfuse 2 units of PRBC and hemoglobin has been stable and will be continue to monitor she had 1 bowel movement which was dark and black suggestive of GI bleeding. continue Protonix GI consulted and plan for EGD 10/06. Will hold anticoagulation until EGD done hemoglobin down to 7.9 this morning. But no signs of active bleeding. monitor hemoglobin transfuse as needed (3) Interstitial lung disease: Code(s): J84.9 - Interstitial pulmonary disease, unspecified Status: Chronic Assessment and Plan: Shortness of breath, hypercapnic respiratory failure could be related to interstitial lung disease flare - decrease Solu-Medrol dose to 10 mg which is close to her home dose. -continue bronchodilators - patient evaluated by Pulmonary (4) CHF (congestive heart failure): Code(s): I50.9 - Heart failure, unspecified Status: Acute Assessment and Plan: Chest x-ray and CT chest show pulmonary edema and/or pneumonia -elevated proBNP 33795 -chest x-ray with possible pulmonary edema versus pneumonia, - who Lasix due to low
--- NOTE | 2023-10-06 11:06 | PM.IMPN ---
Progress Note: A&P Assessment and Plan (1) Acute hypercapnic respiratory failure: Code(s): J96.02 - Acute respiratory failure with hypercapnia Status: Acute Assessment and Plan: Patient presented on 09/27 with altered mental status and respiratory distress. CT Ch/A/P showing diffuse lung disease likely moderate pulm edema, mod Rt and small Lt pleural effusion, small volume of ascites and GB distention. AB.19/98/97 on 2 L. BiPAP attempted but repeat ABG worse so patient was intubated in ED and admitted to ICU. Acute respiratory failure could be related to ILD, pleural effusions, general debility, CHF exacerbation and/or pneumonia. Abx started as Rocephin, Doxy and Vanco once approrpiate cultures obtained. MRSA nasal screen negative. Vancomycin was discontinued Sputum Cx negative. BCx negative. Lasix IV once 10/01 Patient remains intubated. Spontaneous breathing trial unsuccessful 10/01 CT Chest 10/03 showing diffuse lung disease stable from 09/27 and stable small pleural effusions R>L ABG 7.41/43/75 on MV. WBC better at 30K Appreciate diver pumper input. Continue bronchodilators. Off all abx now. Continue sedation and mechanical ventilation. (2) Hypotension: Code(s): I95.9 - Hypotension, unspecified Status: Acute Assessment and Plan: BP dropped yesterday requiring pressor support. Levophed started and up titrated to 5mcg/min Related to acute blood loss? Albumin started. She was transfused. Hgb better. BP improved as well and able to wean down levophed Levophed stopped early hours on 10/04 Monitor (3) Anemia: Code(s): D64.9 - Anemia, unspecified Status: Acute Assessment and Plan: Hgb 9.6 on admission but dropped to 5 yesterday. (ABG also showing Hgb at 5.1) BP soft as well. No evidence of acute blood loss. No schistocytes. TBili normal. Heparin stopped. She was transfused 2U PRBC. Repeat Hgb up to 9.1 and now up to 10 range before Hgb back down to 7.9 today GI consulted and EGD planned. Monitor for evidence of bleeding (4) Interstitial lung disease: Code(s): J84.9 - Interstitial pulmonary disease, unspecified Status: Chronic Assessment and Plan: Hypercapnic respiratory failure could be related to interstitial lung disease flare Patient takes Prednisone at home Patient was started on Solu-Medrol Pulmonary consulted and appreciate their input (5) CHF (congestive heart failure): Code(s): I50.9 - Heart failure, unspecified Status: Acute Assessment and Plan: CT chest show pulmonary edema and pleural effusions. BNP 78271. Consider CHF vs pneumonia Echo showing normal LV systolic function with EF 50-55%, abnormal LV diastolic function, mechanical AV with trace regurg, mild-mod MR and mild pulmonary HTN. She received IV Lasix 10/01 with good UOP. Repeat CT as above Diuresis as tolerated. (6) Essential (primary) hypertension: Code(s): I10 - Essential (primary) hypertension Status: Acute Assessment and Plan: Anti-HTN agents on hold since patient is on mechanical ventilation and sedation and now with HoTN Albumin started. Off Levophed Monitor (7) Type 2 diabetes mellitus without complications: Code(s): E11.9 - Type 2 diabetes mellitus without complications Status: Acute Assessment and Plan: A1c is 6.3 this admission. The patient's blood glucose was reviewed on 10/04 Glucose dropped to 49 at one point treated appropriately. Continue AccuCheks covering with sliding scale. Hypoglycemia protocol available as needed. Continue to monitor (8) Chronic kidney disease, stage 3: Code(s): N18.30 - Chronic kidney disease, stage 3 unspecified Status: Chronic Assessment and Plan: Patient has a history of chronic kidney disease, unknown baseline Cr 2.2 on admission and climbed to 2.7. Nephrology consulted. Potassium 5.4 on admission but normal since. No acidosis.
--- NOTE | 2023-10-06 11:13 | P.PNNP_ITS ---
Progress Note: A&P Assessment and Plan (1) ED (acute kidney injury): Code(s): N17.9 - Acute kidney failure, unspecified Status: Acute Assessment and Plan: * improvement noted if not back to [facility] * complicated by mild hyperkalemia on admission as well * etiology likely multifactorial: * fluctuating hemodynamics * possible prerenal factors * medications (bactrim, losartan, diuretics) * CHF * Hypoxia * other(?) * evaluation to date noted: * renal ultrasound with right kidney atrophy * urine eosinophils negative * urine electrolytes non-prerenal * CPK okay * urine output only 700 on the 16th up to 1025 yesterday and today has 600cc already in just 8hours. * azotemia likely secondary to low blood pressure * the patient is off pressors now. * Blood pressure looks better * creatinine is down just a little bit * will continue to observe the creatinine (2) Chronic kidney disease, stage 3: Code(s): N18.30 - Chronic kidney disease, stage 3 unspecified Status: Chronic Assessment and Plan: * has been present for the last few years (per ) * presumably due to hypertension, diabetes, vascular disease, and age-related change * noted creatinine of 1.13mg/dl in February 2023 (GFR ~ 52cc/min) (3) Acute hypercapnic respiratory failure: Code(s): J96.02 - Acute respiratory failure with hypercapnia Status: Acute Assessment and Plan: * required intubation and mechanical ventilation * multiple possible etiologies: * known interstitial lung disease * CHF * infection/pneumonia(?) * on steroids and bronchodilators * had a thoracentesis today * continue ventilator support * Consider diuretics once her creatinine starts come down a little bit. (4) Interstitial lung disease: Code(s): J84.9 - Interstitial pulmonary disease, unspecified Status: Chronic Assessment and Plan: * on steroids and bronchodilators * Pulmonary on board * follow respiratory status (5) CHF (congestive heart failure): Code(s): I50.9 - Heart failure, unspecified Status: Acute Assessment and Plan: * admission CXR as well as CT chest demonstrate pulmonary edema and/or pneumonia * [place] [address] * Echo shows preserved systolic function some diastolic dysfunction [id number] mitral regurgitation and mild pulmonary hypertension. * given better hemodynamics and CXR findings, (6) Essential (primary) hypertension: Code(s): I10 - Essential (primary) hypertension Status: Acute Assessment and Plan: * Blood pressure 100-150 since off the pressors. * holding anti-HTN medications As she just came off pressors * see how the blood pressure does. (7) Mechanical heart valve present: Code(s): Z95.2 - Presence of prosthetic heart valve Status: Acute Assessment and Plan: * mechanical aortic valve and on coumadin * follow PT/INR (8) Type 2 diabetes mellitus without complications: Code(s): E11.9 - Type 2 diabetes mellitus without complications Status: Acute Assessment and Plan: * follow accu-cheks * glycemic control per contractor general building/hospitalist Subjective Date/time seen: 10/06/23 11:13 Interval history: patient is on the ventilator. is in the room. We discussed the case Exam Narrative: General: thin and well-nourished female on the ventilator, sedated in NAD
--- NOTE | 2023-10-06 11:13 | PM.PNNEP ---
Progress Note: A&P Assessment and Plan (1) ED (acute kidney injury): Code(s): N17.9 - Acute kidney failure, unspecified Status: Acute Assessment and Plan: improvement noted [facility] complicated by mild hyperkalemia on admission as well etiology likely multifactorial: fluctuating hemodynamics possible prerenal factors medications (bactrim, losartan, diuretics) CHF Hypoxia other(?) evaluation to date noted: renal ultrasound with right kidney atrophy urine eosinophils negative urine electrolytes non-prerenal CPK okay urine output only 700 on the 16th up to 1025 yesterday and today has 600cc already in just 8hours. azotemia likely secondary to low blood pressure the patient is off pressors now. Blood pressure looks better creatinine is down just a little bit will continue to observe the creatinine (2) Chronic kidney disease, stage 3: Code(s): N18.30 - Chronic kidney disease, stage 3 unspecified Status: Chronic Assessment and Plan: has been present for the last few years (per ) presumably due to hypertension, diabetes, vascular disease, and age-related change noted creatinine of 1.13mg/dl in February 2023 (GFR ~ 52cc/min) (3) Acute hypercapnic respiratory failure: Code(s): J96.02 - Acute respiratory failure with hypercapnia Status: Acute Assessment and Plan: required intubation and mechanical ventilation multiple possible etiologies: known interstitial lung disease CHF infection/pneumonia(?) on steroids and bronchodilators had a thoracentesis today continue ventilator support Consider diuretics once her creatinine starts come down a little bit. (4) Interstitial lung disease: Code(s): J84.9 - Interstitial pulmonary disease, unspecified Status: Chronic Assessment and Plan: on steroids and bronchodilators Pulmonary on board follow respiratory status (5) CHF (congestive heart failure): Code(s): I50.9 - Heart failure, unspecified Status: Acute Assessment and Plan: admission CXR as well as CT chest demonstrate pulmonary edema and/[place] [address] Echo shows preserved systolic function some diastolic dysfunction [id number] mitral regurgitation and mild pulmonary hypertension. given better hemodynamics and CXR findings, (6) Essential (primary) hypertension: Code(s): I10 - Essential (primary) hypertension Status: Acute Assessment and Plan: Blood pressure 100-150 since off the pressors. holding anti-HTN medications As she just came off pressors see how the blood pressure does. (7) Mechanical heart valve present: Code(s): Z95.2 - Presence of prosthetic heart valve Status: Acute Assessment and Plan: mechanical aortic valve and on coumadin follow PT/INR (8) Type 2 diabetes mellitus without complications: Code(s): E11.9 - Type 2 diabetes mellitus without complications Status: Acute Assessment and Plan: follow accu-cheks glycemic control per recording studio internship/hospitalist Subjective Date/time seen: 10/06/23 11:13 Interval history: patient is on the ventilator. is in the room. We discussed the case Exam Narrative: General: thin and well-nourished female on the ventilator, sedated in NAD Heart: normal S1 and S2; no rub or gallop Lungs: coarse breath sounds bilaterally Abdomen: soft, nontender, nondistended, + bowel sounds Extremities: no cyanosis or clubbing; trace - 1+ edema Skin: no rash or subcu nodules Objective Data Vital Signs Vital Signs: Vital Signs - 24 hr 10/05/23 11:22 10/05/23 12:00 10/05/23 12:00 Temperature 99.9 F H Pulse Rate 76 87 Respiratory Rate 15 Blood Pressure 109/74 Pulse Oximetry 97 97 Oxygen Delivery Mechanical Ventilation Fraction of Inspired Oxygen 30 30
[2023-10-06 12:19] LABS: Glucose Point of Care 176 mg/dl (65-105)
--- NOTE | 2023-10-06 13:30 | WPDGIPROGNO ---
Progress Note: A&P Assessment and Plan (1) Acute on chronic blood loss anemia: Code(s): D62 - Acute posthemorrhagic anemia Status: Acute Assessment and Plan: s/p blood transfusion hgb dropped again but no more active signs of bleeding however blood thinner on hold EGD tomorrow iv protonix trend h/h (2) Melena: Code(s): K92.1 - Melena Status: Acute (3) Leukocytosis: Code(s): D72.829 - Elevated white blood cell count, unspecified Status: Acute Assessment and Plan: s/p abx also iv steroids (4) Acute hypercapnic respiratory failure: Code(s): J96.02 - Acute respiratory failure with hypercapnia Status: Acute Assessment and Plan: still intubated (5) Type 2 diabetes mellitus without complications: Code(s): E11.9 - Type 2 diabetes mellitus without complications Status: Acute (6) Mechanical heart valve present: Code(s): Z95.2 - Presence of prosthetic heart valve Status: Acute (7) Chronic anticoagulation: Code(s): Z79.01 - superintendent terminal (current) use of anticoagulants Status: Acute (8) Encephalopathy: Code(s): G93.40 - Encephalopathy, unspecified Status: Acute Subjective Date/time seen: 10/06/23 13:30 Interval history: staff research scientist reports brown stool and no coffee material by OGT BP stable (no pressors) Review of Systems Review of Systems: All systems reviewed & are unremarkable except as noted in HPI and below Exam Narrative: Gen - intubated and on sedation Neck: supple HEENT - OGT and ETT secured Chest - inspiratory crackles in the flanks CV - RRR with mechanical S2. Abd - firm but not tense, ND, Positive BS - Jain secured draining clear yellow urine Ext - RUE edema and periankle edema R>L Neuro - Awakens and opens eyes but does not follow commands Skin - Warm and dry Objective Data Vital Signs Vital Signs: Vital Signs - 24 hr 10/05/23 13:33 10/05/23 13:42 10/05/23 14:00 Temperature Pulse Rate 74 80 75 Respiratory Rate 14 Blood Pressure Pulse Oximetry 97 Oxygen Delivery Mechanical Ventilation Fraction of Inspired Oxygen 30 10/05/23 14:00 10/05/23 14:00 10/05/23 14:00 Temperature 99 F Pulse Rate 73 77 77 Respiratory Rate 14 14 14 Blood Pressure 118/54 L Pulse Oximetry 95 Oxygen Delivery Fraction of Inspired Oxygen 10/05/23 15:50 10/05/23 15:50 10/05/23 17:09 Temperature Pulse Rate 68 68 71 Respiratory Rate 14 14 Blood Pressure Pulse Oximetry 98 Oxygen Delivery Mechanical Ventilation Fraction of Inspired Oxygen 30 10/05/23 16:00 10/05/23 16:00 10/05/23 16:00 Temperature 98.8 F Pulse Rate 68 Respiratory Rate 14 Blood Pressure 99/44 L Pulse Oximetry 96 98 Oxygen Delivery Mechanical Ventilation Fraction of Inspired Oxygen 30 30 10/05/23 17:00 10/05/23 17:00 10/05/23 18:00 Temperature 97.8 F Pulse Rate 76 73 70 Respiratory Rate 14 14 14 Blood Pressure 128/67 Pulse Oximetry 100 Oxygen Delivery Fraction of Inspired Oxygen 10/05/23 18:00 10/05/23 16:00 10/05/23 20:00 Temperature Pulse Rate 69 68 64 Respiratory Rate 14 Blood Pressure Pulse Oximetry Oxygen Delivery Fraction of Inspired Oxygen 10/05/23 20:00 10/05/23 20:33 10/05/23 20:00 Temperature Pulse Rate 64 66 Respiratory Rate 14 Blood Pressure Pulse Oximetry 99 Oxygen Delivery Mechanical Ventilation Fraction of Inspired Oxygen 30 30 10/05/23 20:00 10/05/23 22:00 10/05/23 20:00 Temperature 98.0 F Pulse Rate 83 63 Respiratory Rate 14 Blood Pressure 119/51 L Pulse Oximetry 98 Oxygen Delivery Mechanical Ventilation Fraction of Inspired Oxygen 30 10/05/23 21:00 10/05/23 22:00 10/05/23 22:00 Temperature 98.1 F 97.5 F L Pulse Rate 91 83 83 Respiratory Rate 16 14 14 Blood Pressure 137/60 117/51 L Pulse Oximetry 100 99 Oxygen Delivery Fraction
[2023-10-06 15:17] LABS: Glucose Point of Care 198 mg/dl (65-105)
[2023-10-06 17:01] LABS: Hematocrit 26.1 % (37.0-47.0); Hemoglobin 8.5 g/dL (12.0-15.0); Mean Corpuscular HGB Conc 32.6 g/dl (32-36); Mean Corpuscular Hemoglobin 30.4 pg (26-34); Mean Corpuscular Volume 93.2 fl (80-100); Mean Platelet Volume 10.9 fl (7.4-10.4); Platelet Count Result 174 k/mm3 (150-375); Red Cell Distribution Width 17.6 % (11.5-14.5); White Blood Count 27.4 K/mm3 (4.5-10.0)
[2023-10-06 20:12] LABS: Glucose Point of Care 220 mg/dl (65-105)
[2023-10-06] MEDS: FENTANYL 2,500MCG/NS250ML(*CRX 2,500 MCG/250 ML BAG 10 MCG IV CONT (20:15)
[2023-10-06] MEDS: INSULIN ASPART (*BKC) 100 UNITS/ML SUB-Q (20:29)
[2023-10-07] VITALS (54 sets, daily range): BP systolic 92–149; BP diastolic 47–78; PULSE 70–150; RESP 13–28; TEMP 36.5–37.6; O2SAT 93–100
[2023-10-07 00:19] LABS: Glucose Point of Care 144 mg/dl (65-105)
[2023-10-07] MEDS: MIDAZOLAM 100MG/NS 100ML(*CRX) 100 MG/100 ML BAG IV CONT (00:25)
[2023-10-07] MEDS: IPRATROPIUM 0.5 MG/ALBUTEROL SULFATE 2.5 MG AMPUL.NEB 3 ML INHALATION ×4 (02:02→19:58)
[2023-10-07 04:37] LABS: Basophils Percent Auto 0.1 % (0.2-1.2); Eosinophils Absolute Auto 0.1 K/mm3 (0-0.3); Eosinophils Percent Auto 0.4 % (0-4.4); Hematocrit 25.2 % (37.0-47.0); Hemoglobin 8.1 g/dL (12.0-15.0); Immature Granulocyte Absolute 0.23 K/mm3 (0.00-0.031); Lymphocytes Absolute Auto 1.17 K/mm3 (0.9-3.2); Mean Corpuscular HGB Conc 32.1 g/dl (32-36); Mean Corpuscular Volume 93.3 fl (80-100); Mean Platelet Volume 10.5 fl (7.4-10.4); Monocytes Absolute Auto 1.3 K/mm3 (0.1-0.6); Monocytes Percent Auto 5.7 % (2.6-8.5); Neutrophils Absolute Auto 20.5 K/mm3 (1.3-6.7); Neutrophils Percent Auto 87.8 % (45.5-73.1); Platelet Count Result 166 k/mm3 (150-375); Red Cell Distribution Width 17.9 % (11.5-14.5); White Blood Count 23.4 K/mm3 (4.5-10.0)
[2023-10-07 04:57] LABS: Alanine Aminotransferase 22 U/L (6-35); Albumin Level 3.5 g/dL (3.5-5.1); Alkaline Phosphatase 51 U/L (38-126); Anion Gap 9 mmol/L (4-12); Aspartate Amino Transferase 42 U/L (14-36); Bilirubin,Total 0.8 mg/dL (0.2-1.3); Carbon Dioxide 30 mmol/L (22-30); Chloride 105 mmol/L (98-107); Estimated CRCL calculation 18 ml/min; Estimated Glomerular Filt Rate 30; Glucose 155 mg/dL (65-110); Magnesium 2.4 mg/dL (1.6-2.3); Phosphorus 3.9 mg/dL (2.5-4.5); Potassium 4.1 mmol/L (3.4-5.0); Sodium 144 mmol/L (137-145)
[2023-10-07 05:09] LABS: INR 1.1; Prothrombin Time 14.7 Seconds (11.1-14.7)
[2023-10-07 05:12] LABS: Hypochromasia 1+; Platelet Estimate Adequate (Adequate)
[2023-10-07 05:13] LABS: Anisocytosis 1+; Ovalocytes 1+; Poikilocytosis 1+; Target Cells 1+
[2023-10-07 05:14] LABS: Blood Urea Nitrogen 123 mg/dL (7-17); Schistocytes None Seen
[2023-10-07 05:27] LABS: Alveolar/Arterial O2 Gradient 62.3 mmHg; Base Excess ABG 3.3 mEq/l (+/-2.0); Carboxyhemoglobin 0.3 % THb (0-2.0); Device VENTILATOR; Fractional Inspired Oxygen 30 %; HCO3 ABG 27.2 mEq/l (22.0-26.0); Modified Allen's Test Unable to perform; Oxygen Content ABG 12.8 %vol (16.0-22.0); Oxygen Saturation ABG 98.1 % (95.0-100.0); Oxyhemoglobin 97.6 % THb (90.0-100.0); PCO2 ABG 38.7 mmHg (35.0-45.0); PO2 ABG 106.1 mmHg (80.0-100.0); PO2 FiO2 Ratio Arterial Blood 3.54 %; Reduced Hemoglobin 2.1 %THb (0-5.0); Site Drawn RIGHT RADIAL; Total Hemoglobin 9.2 g/dL (12.0-18.0); pH ABG 7.465 (7.350-7.450)
[2023-10-07 05:28] LABS: Arterial Blood Gas PEEP 5 cmH2O; Arterial Blood Gas Tidal Volume 300 ml; Arterial Blood Gas Vent Mode CMV; Arterial Blood Gas Ventilator rate 14 /MIN
[2023-10-07] MEDS: METOPROLOL TARTRATE INJ 5 MG/5 ML VIAL (07:25)
[2023-10-07] MEDS: PROPOFOL IV EMULSION 100 ML 1.28 MG IV CONT (07:25)
--- NOTE | 2023-10-07 08:00 | ECG_ITS ---
Test Date: 2023-10-07 08:39:01 Measurements Intervals [place] Rate: 112 P: 0 DC: 0 QRS: 52 QRSD: 114 T: 208 QT: 346 QTc: 473 Interpretive Statements ATRIAL FIBRILLATION WITH RAPID VENTRICULAR RESPONSE MODERATE INTRAVENTRICULAR CONDUCTION DELAY [105+ ms QRS DURATION, 80+ ms Q/S IN V1/V2, NO Q AND 60+ ms R IN I/aVL/V5/V6] ST DEVIATION AND MODERATE T-WAVE ABNORMALITY, CONSIDER LATERAL ISCHEMIA [-0.1+ mV T WAVE IN I/aVL/V5/V6] ST DEVIATION AND MODERATE T-WAVE ABNORMALITY, CONSIDER INFERIOR ISCHEMIA [-0.1+ mV T WAVE IN II/aVF] INTERPRETATION BASED ON A DEFAULT AGE OF 40 YEARS Compared to ECG 09/28/2023 09:56:03 ATRIAL FIBRILLATION WITH RVR NOW PRESENT Electronically Signed On 10-08-2023 10:13:09 CDT by Diane Calvin M.D.
[2023-10-07 08:01] LABS: Glucose Point of Care 177 mg/dl (65-105)
--- NOTE | 2023-10-07 08:15 | ECG_ITS ---
Test Date: 2023-10-07 08:40:22 Measurements Intervals [place] Rate: 116 P: 0 [place]: 0 QRS: 50 QRSD: 114 T: 210 QT: 344 QTc: 478 Interpretive Statements ATRIAL FIBRILLATION WITH RAPID VENTRICULAR RESPONSE MODERATE INTRAVENTRICULAR CONDUCTION DELAY [105+ ms QRS DURATION, 80+ ms Q/S IN V1/V2, NO Q AND 60+ ms R IN I/aVL/V5/V6] ST DEVIATION AND MODERATE T-WAVE ABNORMALITY, CONSIDER LATERAL ISCHEMIA [-0.1+ mV T WAVE IN I/aVL/V5/V6] ST DEVIATION AND MODERATE T-WAVE ABNORMALITY, CONSIDER INFERIOR ISCHEMIA [-0.1+ mV T WAVE IN II/aVF] INTERPRETATION BASED ON A DEFAULT AGE OF 40 YEARS Compared to ECG 10/07/2023 08:39:01 NO SIGNIFICANT CHANGES Electronically Signed On 10-08-2023 10:13:27 CDT by Diane Calvin M.D.
[2023-10-07] MEDS: PANTOPRAZOLE SODIUM IV 40 MG VIAL IV PUSH ×2 (08:22→20:39)
[2023-10-07] MEDS: MINERAL OIL/WHITE PETROLATUM OINTMENT 1 APPLIC EACH EYE ×2 (08:22→20:40)
[2023-10-07] MEDS: ATORVASTATIN 40 MG TABLET PO (08:22)
[2023-10-07] MEDS: methylPREDNISolone SOD SUCC 40 MG VIAL 10 MG IV PUSH (08:22)
[2023-10-07] MEDS: polyethylene glycoL 3350 17 GM POWD.PACK FEED TUBE (08:22)
--- NOTE | 2023-10-07 08:38 | WPDINTPN ---
Progress Note: A&P Assessment and Plan (1) Acute hypercapnic respiratory failure: Code(s): J96.02 - Acute respiratory failure with hypercapnia Status: Acute Assessment and Plan: 09/27: Patient presented with altered mental status, respiratory distress was found to be an acute hypercapnic respiratory failure, not amenable to BiPAP, was successfully intubated in the ER on 09/28/2023 -acute respiratory failure could be related to baseline interstitial lung disease , pleural effusions, general debility and CHF exacerbation, possible pneumonia - In the ER patient initial ABG showed pH of 7.19, pCO2 of 98, PO2 of 97 on 2 L nasal cannula, Bicarb of 37, pCO2 -patient was placed on BiPAP, repeat ABG showed pH of 7.13, pCO2 of 119, PO2 of 144 on BiPAP 18/5, 80% FiO2, was intubated in the ER Currently patient on CMV mode of ventilation with low tidal volume strategy to avoid barotrauma and volume trauma. -peep of 5, 30% FiO2 -ABGs and chest x-ray reviewed -continue bronchodilators -status post course of ceftriaxone, doxycycline -on Solu-Medrol 10 mg IV daily -patient on fentanyl and Versed infusion for sedation, patient was agitated, restless despite being on high doses -have asked the bedside RN to switched to propofol been wean off fentanyl and Versed infusion -patient has been receiving on of Lasix for the edema -patient has failed multiple spontaneous breathing trials 10/05: Right thoracentesis with removal of 500 mL off light yellow-colored fluid -hold SBT as patient has EGD this morning 10/[address] IMPRESSION: 1. Diffuse lung disease, stable from 09/28/2023, consistent with pulmonary edema versus pneumonia. 2. Small pleural effusions, right worse than left. Decrease Solumedrol dose (2) Anemia: Code(s): D64.9 - Anemia, unspecified Status: Acute Assessment and Plan: 10/03 patient has chronic anemia but has had drastic drop in hemoglobin this morning. Her hemoglobin was 5 this morning she was on heparin drip which has been supratherapeutic despite following protocol and has been on hold now since last night when her PTT was more than 200. she has no sign of obvious bleeding with no bowel movement and tube feed residual was checked and was clear. She does have edema of both upper extremities and the skin appears bluish but no specific hematoma or bruise. will hold heparin infusion at this time - 10/03: CT scan of chest abdomen pelvis was done and did not show any retroperitoneal or intra-abdominal bleeding her PTT is in normal range and INR only 1.4 and hence she will not benefit any other blood products or protamine patient was transfused 2 units of PRBC and hemoglobin has been stable and will be continue to monitor she had 1 bowel movement which was dark and black suggestive of GI bleeding. - continue Protonix - GI consulted and plan for EGD 10/06. Will hold anticoagulation until EGD done -hemoglobin stable this morning (3) Interstitial lung disease: Code(s): J84.9 - Interstitial pulmonary disease, unspecified Status: Chronic Assessment and Plan: Shortness of breath, hypercapnic respiratory failure could be related to interstitial lung disease flare - decrease Solu-Medrol dose to 10 mg which is close to her home dose. -continue bronchodilators - patient evaluated by Pulmonary (4) CHF (congestive heart failure): Code(s): I50.9 - Heart failure, unspecified Status: Acute Assessment and Plan: Chest x-ray and CT chest show pulmonary edema and/or pneumonia -elevated proBNP 72651 -chest x-ray with possible pulmonary edema versus pneumonia, -status post Lasix which was held due to worsening creatinine/renal function 09/30/2023: Echocardiogram Summary 1. Complete two-dimensional, color flow and Doppler transthoracic echocardiogram is performed. 2. Left ventricular chamber dimension is normal. 3. Left ventricular systolic function is preserved, estima
--- NOTE | 2023-10-07 09:45 | P.PNNP_ITS ---
Progress Note: A&P Assessment and Plan (1) ED (acute kidney injury): Code(s): N17.9 - Acute kidney failure, unspecified Status: Acute Assessment and Plan: * fluctuating recently * complicated by mild hyperkalemia on admission as well * etiology likely multifactorial: * fluctuating hemodynamics * possible prerenal factors * medications (bactrim, losartan, diuretics) * CHF * hypoxia * other(?) * evaluation to date noted: * renal ultrasound with right kidney atrophy * urine eosinophils negative * urine electrolytes non-prerenal * CPK okay * azotemia likely secondary to steroids and possible GI bleed * follow trend of repeat labs and UOP (2) Chronic kidney disease, stage 3: Code(s): N18.30 - Chronic kidney disease, stage 3 unspecified Status: Chronic Assessment and Plan: * has been present for the last few years (per ) * presumably due to hypertension, diabetes, vascular disease, and age-related change * noted creatinine of 1.13mg/dl in February 2023 (GFR ~ 52cc/min) (3) Acute hypercapnic respiratory failure: Code(s): J96.02 - Acute respiratory failure with hypercapnia Status: Acute Assessment and Plan: * required intubation and mechanical ventilation * multiple possible etiologies: * known interstitial lung disease * CHF * infection/pneumonia(?) * on steroids and bronchodilators * s/p thoracentesis on 10/05 * continue ventilator support * consider restart diuretics once her creatinine starts improve (4) Interstitial lung disease: Code(s): J84.9 - Interstitial pulmonary disease, unspecified Status: Chronic Assessment and Plan: * on steroids and bronchodilators * Pulmonary on board * follow respiratory status (5) CHF (congestive heart failure): Code(s): I50.9 - Heart failure, unspecified Status: Acute Assessment and Plan: * admission CXR as well as CT chest demonstrate pulmonary edema and/or pneumonia * [place] [address] * Echo shows preserved systolic function some diastolic dysfunction [id number] mitral regurgitation and mild pulmonary hypertension * resume diuretics once creatinine starts to improve (6) Essential (primary) hypertension: Code(s): I10 - Essential (primary) hypertension Status: Acute Assessment and Plan: * reasonable control * holding anti-HTN medications * follow trend of hemodynamics (7) Mechanical heart valve present: Code(s): Z95.2 - Presence of prosthetic heart valve Status: Acute Assessment and Plan: * mechanical aortic valve * on anticoagulation * follow PT/INR once coumadin resumed (8) Type 2 diabetes mellitus without complications: Code(s): E11.9 - Type 2 diabetes mellitus without complications Status: Acute Assessment and Plan: * follow accu-cheks * glycemic control per graduate teaching associate/hospitalist Will continue to follow. Subjective Date/time seen: 10/07/23 09:45 Interval history: Follow-up for acute kidney injury/acute renal failure on chronic kidney disease. Chart reviewed since I last saw the patient -- renal function/creatinine remains relatively stable at this time with reasonable urine output; remains intubated and on mechanical ventilation; noted to be in Afibe iwth RVR earliear this morning with improvement noted with metoprolol; due to increasing agitation, started on propofol as well; noted plans for EGD later today given previous drop
--- NOTE | 2023-10-07 09:45 | PM.PNNEP ---
Progress Note: A&P Assessment and Plan (1) ED (acute kidney injury): Code(s): N17.9 - Acute kidney failure, unspecified Status: Acute Assessment and Plan: fluctuating recently complicated by mild hyperkalemia on admission as well etiology likely multifactorial: fluctuating hemodynamics possible prerenal factors medications (bactrim, losartan, diuretics) CHF hypoxia other(?) evaluation to date noted: renal ultrasound with right kidney atrophy urine eosinophils negative urine electrolytes non-prerenal CPK okay azotemia likely secondary to steroids and possible GI bleed follow trend of repeat labs and UOP (2) Chronic kidney disease, stage 3: Code(s): N18.30 - Chronic kidney disease, stage 3 unspecified Status: Chronic Assessment and Plan: has been present for the last few years (per ) presumably due to hypertension, diabetes, vascular disease, and age-related change noted creatinine of 1.13mg/dl in February 2023 (GFR ~ 52cc/min) (3) Acute hypercapnic respiratory failure: Code(s): J96.02 - Acute respiratory failure with hypercapnia Status: Acute Assessment and Plan: required intubation and mechanical ventilation multiple possible etiologies: known interstitial lung disease CHF infection/pneumonia(?) on steroids and bronchodilators s/p thoracentesis on 10/05 continue ventilator support consider restart diuretics once her creatinine starts improve (4) Interstitial lung disease: Code(s): J84.9 - Interstitial pulmonary disease, unspecified Status: Chronic Assessment and Plan: on steroids and bronchodilators Pulmonary on board follow respiratory status (5) CHF (congestive heart failure): Code(s): I50.9 - Heart failure, unspecified Status: Acute Assessment and Plan: admission CXR as well as CT chest demonstrate pulmonary edema and/[place] [address] Echo shows preserved systolic function some diastolic dysfunction [id number] mitral regurgitation and mild pulmonary hypertension resume diuretics once creatinine starts to improve (6) Essential (primary) hypertension: Code(s): I10 - Essential (primary) hypertension Status: Acute Assessment and Plan: reasonable control holding anti-HTN medications follow trend of hemodynamics (7) Mechanical heart valve present: Code(s): Z95.2 - Presence of prosthetic heart valve Status: Acute Assessment and Plan: mechanical aortic valve on anticoagulation follow PT/INR once coumadin resumed (8) Type 2 diabetes mellitus without complications: Code(s): E11.9 - Type 2 diabetes mellitus without complications Status: Acute Assessment and Plan: follow accu-cheks glycemic control per plant maintenance supervisor/hospitalist Will continue to follow. Subjective Date/time seen: 10/07/23 09:45 Interval history: Follow-up for acute kidney injury/acute renal failure on chronic kidney disease. Chart reviewed since I last saw the patient -- renal function/creatinine remains relatively stable at this time with reasonable urine output; remains intubated and on mechanical ventilation; noted to be in Afibe iwth RVR earliear this morning with improvement noted with metoprolol; due to increasing agitation, started on propofol as well; noted plans for EGD later today given previous drop in H/H. Exam Narrative: General: thin female intubated/sedated on mechanical ventilation Heart: normal S1 and S2; no rub Lungs: coarse breath sounds bilaterally Abdomen: soft, nontender, nondistended, + bowel sounds Extremities: no cyanosis or clubbing; trace - 1+ edema Skin: warm and dry Objective Data Vital Signs Vital Signs: Vital Signs Temp Pulse Resp BP Pulse Ox O2 Del Method FiO2 10/07/23 09:37 101 H 14 10/07/23 09:37 101 H 14 10/07/23 08:00
--- NOTE | 2023-10-07 10:41 | PCFNICU ---
ICU Rounding Note: Pt current nutrition is Vital 1.2 @ goal rate 45 ml/h: ON HOLD for EGD today. Nutrition recommendation: Resume tube feeding per GI @ same rate: Vital AF 1.2 @ 45 ml/g goal rate with 30 ml flushes q 4 hours. Last recorded weight is 42.7 kg. Bowel Motility: +1 BM 10/07/23 Labs Reviewed: Hgb 8.1, Hct 25.2, GFR 30, BUN 123, Cre 1.7, Glu 155 Meds Noted: fentanyl, Versed, protonix, solumedrol, propofol Skin: Skin tears Additional Notes: Tube feeding on hold for EGD d/t dropping hemoglobin. Propofol started @ 2.56 ml.h: 68 kcal. Arms are elevated. Pressors off. Following daily in ICU rounds. Monitoring tube feeding tolerance, weights, labs, plan of care Follow daily in ICU rounds, reassess Tuesdays and Fridays.
--- NOTE | 2023-10-07 11:28 | PM.IMPN ---
Progress Note: A&P Assessment and Plan (1) Acute hypercapnic respiratory failure: Code(s): J96.02 - Acute respiratory failure with hypercapnia Status: Acute Assessment and Plan: Patient presented on 09/27 with altered mental status and respiratory distress. CT Ch/A/P showing diffuse lung disease likely moderate pulm edema, mod Rt and small Lt pleural effusion, small volume of ascites and GB distention. AB.19/98/97 on 2 L. BiPAP attempted but repeat ABG worse so patient was intubated in ED and admitted to ICU. Acute respiratory failure could be related to ILD, pleural effusions, general debility, CHF exacerbation and/or pneumonia. Abx started as Rocephin, Doxy and Vanco once approrpiate cultures obtained. MRSA nasal screen negative. Vancomycin was discontinued Sputum Cx negative. BCx negative. Lasix IV once 10/01 Patient remains intubated. Spontaneous breathing trial unsuccessful 10/01 CT Chest 10/03 showing diffuse lung disease stable from 09/27 and stable small pleural effusions R>L Off all abx 10/03. ABG 7.41/43/75 on MV. WBC better at 23.4K Appreciate seat coverer input. Continue bronchodilators. Continue sedation and mechanical ventilation. (2) Hypotension: Code(s): I95.9 - Hypotension, unspecified Status: Acute Assessment and Plan: BP dropped requiring pressor support on 10/03. Levophed started and up titrated to 5mcg/min Related to acute blood loss? Albumin started. She was transfused. Hgb better. BP improved as well and able to wean down levophed Levophed stopped early hours on 10/04 Monitor (3) Anemia: Code(s): D64.9 - Anemia, unspecified Status: Acute Assessment and Plan: Hgb 9.6 on admission but dropped to 5 on 10/03. (ABG also showing Hgb at 5.1) BP soft as well. No evidence of acute blood loss. No schistocytes. TBili normal. Heparin stopped. She was transfused 2U PRBC. Repeat Hgb up to 10.7 before Hgb back down to 7-8 range GI consulted and EGD planned. Monitor for evidence of bleeding (4) Interstitial lung disease: Code(s): J84.9 - Interstitial pulmonary disease, unspecified Status: Chronic Assessment and Plan: Hypercapnic respiratory failure could be related to interstitial lung disease flare Patient takes Prednisone at home Patient was started on Solu-Medrol Pulmonary consulted and appreciate their input (5) CHF (congestive heart failure): Code(s): I50.9 - Heart failure, unspecified Status: Acute Assessment and Plan: CT chest show pulmonary edema and pleural effusions. BNP 04465. Consider CHF vs pneumonia Echo showing normal LV systolic function with EF 50-55%, abnormal LV diastolic function, mechanical AV with trace regurg, mild-mod MR and mild pulmonary HTN. She received IV Lasix 10/01 with good UOP. Repeat CT as above Diuresis as tolerated. (6) Essential (primary) hypertension: Code(s): I10 - Essential (primary) hypertension Status: Acute Assessment and Plan: Anti-HTN agents on hold since patient is on mechanical ventilation and sedation and now with HoTN Albumin started. Off Levophed Monitor (7) Type 2 diabetes mellitus without complications: Code(s): E11.9 - Type 2 diabetes mellitus without complications Status: Acute Assessment and Plan: A1c is 6.3 this admission. The patient's blood glucose was reviewed on 10/05 Glucose mostly reasonable. Continue AccuCheks covering with sliding scale. Hypoglycemia protocol available as needed. Continue to monitor (8) Chronic kidney disease, stage 3: Code(s): N18.30 - Chronic kidney disease, stage 3 unspecified Status: Chronic Assessment and Plan: Patient has a history of chronic kidney disease, unknown baseline Cr 2.2 on admission and climbed to 2.7. Nephrology consulted. Potassium 5.4 on admission but normal since. No acidosis. She was initially given an gentle 1 L IV fluids due
[2023-10-07 12:51] LABS: Glucose Point of Care 154 mg/dl (65-105)
--- NOTE | 2023-10-07 14:36 | SUR.OPER ---
Car Tracer and SAMPLING EXPERT [employer] managing sedation.
--- NOTE | 2023-10-07 15:05 | SUR.OPER ---
See ICU chart for vital signs for procedure.
[2023-10-07 16:45] LABS: Glucose Point of Care 162 mg/dl (65-105)
[2023-10-07] MEDS: FENTANYL 2,500MCG/NS250ML(*CRX 2,500 MCG/250 ML BAG 10 MCG IV CONT (18:36)
[2023-10-07] MEDS: CENTRAL LINE FLUSH 10 ML IV PUSH (20:40)
[2023-10-07 20:45] LABS: Glucose Point of Care 159 mg/dl (65-105)
[2023-10-07] MEDS: PROPOFOL IV EMULSION 100 ML 8.97 MG IV CONT (22:55)
[2023-10-08] VITALS (33 sets, daily range): BP systolic 94–136; BP diastolic 50–105; PULSE 67–146; RESP 14–28; TEMP 36.4–37.6; O2SAT 96–100
[2023-10-08 00:16] LABS: Glucose Point of Care 143 mg/dl (65-105)
[2023-10-08] MEDS: IPRATROPIUM 0.5 MG/ALBUTEROL SULFATE 2.5 MG AMPUL.NEB 3 ML INHALATION ×2 (02:07→08:00)
[2023-10-08 04:47] LABS: Glucose Point of Care 139 mg/dl (65-105)
[2023-10-08 05:27] LABS: Base Excess ABG 2.4 mEq/l (+/-2.0); Carboxyhemoglobin 0.4 % THb (0-2.0); Fractional Inspired Oxygen 25 %; Methemoglobin ABG 0.3 %THb (0-1.5); Oxygen Content ABG 12.9 %vol (16.0-22.0); Oxygen Saturation ABG 96.9 % (95.0-100.0); Oxyhemoglobin 95.5 % THb (90.0-100.0); PCO2 ABG 36.2 mmHg (35.0-45.0); PO2 ABG 83.3 mmHg (80.0-100.0); PO2 FiO2 Ratio Arterial Blood 3.33 %; Reduced Hemoglobin 3.8 %THb (0-5.0); Total Hemoglobin 9.5 g/dL (12.0-18.0); pH ABG 7.474 (7.350-7.450)
[2023-10-08 05:38] LABS: Basophils Percent Auto 0.1 % (0.2-1.2); Eosinophils Absolute Auto 0.4 K/mm3 (0-0.3); Hematocrit 27.1 % (37.0-47.0); Hemoglobin 8.8 g/dL (12.0-15.0); Immature Granulocyte Percent A 0.5 % (0-0.5); Lymphocytes Absolute Auto 1.37 K/mm3 (0.9-3.2); Lymphocytes Percent Auto 7.2 % (18.3-44.2); Mean Corpuscular HGB Conc 32.5 g/dl (32-36); Mean Corpuscular Hemoglobin 30.4 pg (26-34); Mean Corpuscular Volume 93.8 fl (80-100); Mean Platelet Volume 10.4 fl (7.4-10.4); Monocytes Absolute Auto 1.3 K/mm3 (0.1-0.6); Monocytes Percent Auto 6.6 % (2.6-8.5); Neutrophils Absolute Auto 15.9 K/mm3 (1.3-6.7); Neutrophils Percent Auto 83.6 % (45.5-73.1); Platelet Count Result 196 k/mm3 (150-375); Red Blood Count 2.89 M/mm3 (4.2-5.4); Red Cell Distribution Width 17.8 % (11.5-14.5)
[2023-10-08 05:44] LABS: INR 1.1; Prothrombin Time 14.9 Seconds (11.1-14.7)
[2023-10-08 05:47] LABS: Lipase 252 U/L (23-300)
[2023-10-08 05:48] LABS: Lactic Acid Reflex 0.7 mmol/L (0.7-2.0)
[2023-10-08 05:51] LABS: Alanine Aminotransferase 25 U/L (6-35); Albumin Level 3.3 g/dL (3.5-5.1); Alkaline Phosphatase 48 U/L (38-126); Anion Gap 11 mmol/L (4-12); Aspartate Amino Transferase 43 U/L (14-36); Bilirubin,Total 0.6 mg/dL (0.2-1.3); Calcium 8.7 mg/dL (8.4-10.2); Carbon Dioxide 28 mmol/L (22-30); Chloride 105 mmol/L (98-107); Estimated CRCL calculation 18 ml/min; Estimated Glomerular Filt Rate 30; Glucose 172 mg/dL (65-110); Magnesium 2.6 mg/dL (1.6-2.3); Phosphorus 4.3 mg/dL (2.5-4.5); Potassium 3.6 mmol/L (3.4-5.0); Sodium 144 mmol/L (137-145)
[2023-10-08 06:04] LABS: Arterial Blood Gas Ventilator rate 14 /MIN; Device VENTILATOR; Modified Allen's Test Pass; Site Drawn RIGHT RADIAL
[2023-10-08 06:05] LABS: Arterial Blood Gas PEEP 5 cmH2O; Arterial Blood Gas Tidal Volume 300 ml; Arterial Blood Gas Vent Mode CMV
[2023-10-08 06:23] LABS: Blood Urea Nitrogen 124 mg/dL (7-17)
[2023-10-08] MEDS: CENTRAL LINE FLUSH 10 ML IV PUSH ×3 (06:55→20:45)
[2023-10-08 07:26] LABS: Glucose Point of Care 130 mg/dl (65-105)
[2023-10-08] MEDS: PANTOPRAZOLE SODIUM IV 40 MG VIAL IV PUSH ×2 (08:13→20:45)
[2023-10-08] MEDS: ATORVASTATIN 40 MG TABLET PO (08:13)
[2023-10-08] MEDS: methylPREDNISolone SOD SUCC 40 MG VIAL 10 MG IV PUSH (08:14)
[2023-10-08] MEDS: MINERAL OIL/WHITE PETROLATUM OINTMENT 1 APPLIC EACH EYE ×2 (08:15→20:45)
[2023-10-08] MEDS: HEPARIN SOD/D5W 100 UNITS/ML 25,000 UNITS/250 ML BAG IV CONT (09:33)
--- NOTE | 2023-10-08 09:50 | P.PNNP_ITS ---
Progress Note: A&P Assessment and Plan (1) ED (acute kidney injury): Code(s): N17.9 - Acute kidney failure, unspecified Status: Acute Assessment and Plan: * creatinine relatively stable at this time * complicated by mild hyperkalemia on admission as well * etiology likely multifactorial: * fluctuating hemodynamics * possible prerenal factors * medications (bactrim, losartan, diuretics) * CHF * hypoxia * other(?) * evaluation to date noted: * renal ultrasound with right kidney atrophy * urine eosinophils negative * urine electrolytes non-prerenal * CPK okay * azotemia likely secondary to steroids, possible GI bleed (although negative EGD) and catabolic state * follow trend of repeat labs and UOP (2) Chronic kidney disease, stage 3: Code(s): N18.30 - Chronic kidney disease, stage 3 unspecified Status: Chronic Assessment and Plan: * has been present for the last few years (per ) * presumably due to hypertension, diabetes, vascular disease, and age-related change * noted creatinine of 1.13mg/dl in February 2023 (GFR ~ 52cc/min) (3) Acute hypercapnic respiratory failure: Code(s): J96.02 - Acute respiratory failure with hypercapnia Status: Acute Assessment and Plan: * required intubation and mechanical ventilation * multiple possible etiologies: * known interstitial lung disease * CHF * infection/pneumonia(?) * on steroids and bronchodilators * s/p thoracentesis on 10/05 * continue ventilator support * possible tracheostomy and PEG?? * consider restart diuretics once her creatinine starts improve (4) Anemia: Code(s): D64.9 - Anemia, unspecified Status: Acute Assessment and Plan: * noted drop in H/H * s/p PRBC transfusion per protocol * s/p EGD (on 10/06): no signs of recent bleeding, only mild gastritis * follow H/H (5) CHF (congestive heart failure): Code(s): I50.9 - Heart failure, unspecified Status: Acute Assessment and Plan: * admission CXR as well as CT chest demonstrate pulmonary edema and/or pneumonia * [place] [address] * Echo shows preserved systolic function some diastolic dysfunction [id number] mitral regurgitation and mild pulmonary hypertension * resume diuretics once creatinine starts to improve (6) Interstitial lung disease: Code(s): J84.9 - Interstitial pulmonary disease, unspecified Status: Chronic Assessment and Plan: * on steroids and bronchodilators * Pulmonary on board * follow respiratory status (7) Essential (primary) hypertension: Code(s): I10 - Essential (primary) hypertension Status: Acute Assessment and Plan: * reasonable control * holding anti-HTN medications * follow trend of hemodynamics (8) Mechanical heart valve present: Code(s): Z95.2 - Presence of prosthetic heart valve Status: Acute Assessment and Plan: * mechanical aortic valve * on anticoagulation * follow PT/INR once coumadin resumed (9) Type 2 diabetes mellitus without complications: Code(s): E11.9 - Type 2 diabetes mellitus without complications Status: Acute Assessment and Plan: * follow accu-cheks * glycemic control per manager property/hospitalist Will continue to follow. Subjective Date/time seen: 10/08/23 09:50 Interval history: Follow-up for acute kidney injury/acute renal failure on chronic kidney disease. Renal fu
--- NOTE | 2023-10-08 09:50 | PM.PNNEP ---
Progress Note: A&P Assessment and Plan (1) ED (acute kidney injury): Code(s): N17.9 - Acute kidney failure, unspecified Status: Acute Assessment and Plan: creatinine relatively stable at this time complicated by mild hyperkalemia on admission as well etiology likely multifactorial: fluctuating hemodynamics possible prerenal factors medications (bactrim, losartan, diuretics) CHF hypoxia other(?) evaluation to date noted: renal ultrasound with right kidney atrophy urine eosinophils negative urine electrolytes non-prerenal CPK okay azotemia likely secondary to steroids, possible GI bleed (although negative EGD) and catabolic state follow trend of repeat labs and UOP (2) Chronic kidney disease, stage 3: Code(s): N18.30 - Chronic kidney disease, stage 3 unspecified Status: Chronic Assessment and Plan: has been present for the last few years (per ) presumably due to hypertension, diabetes, vascular disease, and age-related change noted creatinine of 1.13mg/dl in February 2023 (GFR ~ 52cc/min) (3) Acute hypercapnic respiratory failure: Code(s): J96.02 - Acute respiratory failure with hypercapnia Status: Acute Assessment and Plan: required intubation and mechanical ventilation multiple possible etiologies: known interstitial lung disease CHF infection/pneumonia(?) on steroids and bronchodilators s/p thoracentesis on 10/05 continue ventilator support possible tracheostomy and PEG?? consider restart diuretics once her creatinine starts improve (4) Anemia: Code(s): D64.9 - Anemia, unspecified Status: Acute Assessment and Plan: noted drop in H/H s/p PRBC transfusion per protocol s/p EGD (on 10/06): no signs of recent bleeding, only mild gastritis follow H/H (5) CHF (congestive heart failure): Code(s): I50.9 - Heart failure, unspecified Status: Acute Assessment and Plan: admission CXR as well as CT chest demonstrate pulmonary edema and/[place] [address] Echo shows preserved systolic function some diastolic dysfunction [id number] mitral regurgitation and mild pulmonary hypertension resume diuretics once creatinine starts to improve (6) Interstitial lung disease: Code(s): J84.9 - Interstitial pulmonary disease, unspecified Status: Chronic Assessment and Plan: on steroids and bronchodilators Pulmonary on board follow respiratory status (7) Essential (primary) hypertension: Code(s): I10 - Essential (primary) hypertension Status: Acute Assessment and Plan: reasonable control holding anti-HTN medications follow trend of hemodynamics (8) Mechanical heart valve present: Code(s): Z95.2 - Presence of prosthetic heart valve Status: Acute Assessment and Plan: mechanical aortic valve on anticoagulation follow PT/INR once coumadin resumed (9) Type 2 diabetes mellitus without complications: Code(s): E11.9 - Type 2 diabetes mellitus without complications Status: Acute Assessment and Plan: follow accu-cheks glycemic control per supply chain planner/hospitalist Will continue to follow. Subjective Date/time seen: 10/08/23 09:50 Interval history: Follow-up for acute kidney injury/acute renal failure on chronic kidney disease. Renal function/creatinine remains relatively stable with adequate urine output; remains intubated/sedated and on ventilator support; remains tachycardic (in Afib) when seen; s/p EGD yesterday with findings noted; no apparent distress noted at the time of my visit; at bedside and we discussed the situation. Exam Narrative: General: thin female intubated/sedated on mechanical ventilation Heart: normal S1 and S2; no rub Lungs: coarse breath sounds bilaterally Abdomen: soft, nontender, nondistended, + bowel sounds Extremities:
[2023-10-08] MEDS: METOPROLOL TARTRATE INJ 5 MG/5 ML VIAL 2.5 MG IV PUSH (10:27)
[2023-10-08] MEDS: PROPOFOL IV EMULSION 100 ML 8.97 MG IV CONT ×2 (10:27→20:26)
--- NOTE | 2023-10-08 10:42 | PCNFU ---
Nutrition Follow-Up Complete: Increased protein energy needs related to mechanical ventilation as evidenced by need for full tube feeding Goal: Meet estimated protein energy needs Patient is meeting current goal. No new goal. Pt current nutrition is Vital AF 1.2 at 45 ml/hr. Last recorded weight is 42.7 kg, down from 43.4 kg on admit. Bowel Motility:+BM reported 10/07 Labs Reviewed: GFR 30, BUN 124, Cr 1.7,Glu 17,Hct 27.1,Hgb 8.8 Meds Noted: Heparin, Versed, Propofol 40 zbcp=907 kcal, Protonix. Skin: WNL Additional Notes: Patient remains on mechanical vent. Tube feedings are being tolerating of Vital AF 1.2 at 45 ml/hr. 30 ml flush q 4 hours. Total Nutrition: 1459 kcal/74 gm protein/803 ml water. EGD 10/06 showing gastritis. Goal is to decrease sedation and attempt breathing trial today. Agree with diet orders at this time. Monitoring tube feeding tolerance, weights, labs, plan of care Follow daily in ICU rounds, reassess Tuesdays and Fridays
[2023-10-08 11:04] LABS: Glucose Point of Care 164 mg/dl (65-105)
--- NOTE | 2023-10-08 11:12 | PM.IMPN ---
Progress Note: A&P Assessment and Plan (1) Acute hypercapnic respiratory failure: Code(s): J96.02 - Acute respiratory failure with hypercapnia Status: Acute Assessment and Plan: Patient presented on 09/27 with altered mental status and respiratory distress. CT Ch/A/P showing diffuse lung disease likely moderate pulm edema, mod Rt and small Lt pleural effusion, small volume of ascites and GB distention. AB.19/98/97 on 2 L. BiPAP attempted but repeat ABG worse so patient was intubated in ED and admitted to ICU. Acute respiratory failure could be related to ILD, pleural effusions, general debility, CHF exacerbation and/or pneumonia. Abx started as Rocephin, Doxy and Vanco once approrpiate cultures obtained. MRSA nasal screen negative. Vancomycin was discontinued Sputum Cx negative. BCx negative. Lasix IV once 10/01 CT Chest 10/03 showing diffuse lung disease stable from 09/27 and stable small pleural effusions R>L Off all abx 10/03. WBC better at 19K Patient remains intubated. Spontaneous breathing trial unsuccessful Appreciate certified financial planner input. Continue bronchodilators. Continue sedation and mechanical ventilation. (2) Hypotension: Code(s): I95.9 - Hypotension, unspecified Status: Acute Assessment and Plan: BP dropped requiring pressor support on 10/03. Levophed started and up titrated to 5mcg/min Related to acute blood loss? Albumin started. She was transfused. Hgb better. BP improved as well and able to wean down levophed Levophed stopped early hours on 10/04 Monitor (3) Anemia: Code(s): D64.9 - Anemia, unspecified Status: Acute Assessment and Plan: Hgb 9.6 on admission but dropped to 5 on 10/03. (ABG also showing Hgb at 5.1) BP soft as well. No evidence of acute blood loss. No schistocytes. TBili normal. Heparin stopped. She was transfused 2U PRBC. Repeat Hgb up to 10.7 before Hgb back down to 7-8 range GI consulted and EGD performed 10/06 showing gastritis. Monitor for evidence of bleeding (4) Interstitial lung disease: Code(s): J84.9 - Interstitial pulmonary disease, unspecified Status: Chronic Assessment and Plan: Hypercapnic respiratory failure could be related to interstitial lung disease flare Patient takes Prednisone at home Patient was started on Solu-Medrol Pulmonary consulted and appreciate their input (5) CHF (congestive heart failure): Code(s): I50.9 - Heart failure, unspecified Status: Acute Assessment and Plan: CT chest show pulmonary edema and pleural effusions. BNP 75078. Consider CHF vs pneumonia Echo showing normal LV systolic function with EF 50-55%, abnormal LV diastolic function, mechanical AV with trace regurg, mild-mod MR and mild pulmonary HTN. She received IV Lasix 10/01 with good UOP. Repeat CT as above Diuresis as tolerated. (6) Essential (primary) hypertension: Code(s): I10 - Essential (primary) hypertension Status: Acute Assessment and Plan: Anti-HTN agents on hold since patient is on mechanical ventilation and sedation and now with HoTN Albumin given x4. Off Levophed Monitor (7) Type 2 diabetes mellitus without complications: Code(s): E11.9 - Type 2 diabetes mellitus without complications Status: Acute Assessment and Plan: A1c is 6.3 this admission. The patient's blood glucose was reviewed on 10/07 Glucose mostly reasonable. Continue AccuCheks covering with sliding scale. Hypoglycemia protocol available as needed. Continue to monitor (8) Chronic kidney disease, stage 3: Code(s): N18.30 - Chronic kidney disease, stage 3 unspecified Status: Chronic Assessment and Plan: Patient has a history of chronic kidney disease, unknown baseline Cr 2.2 on admission and climbed to 2.7. Nephrology consulted. Potassium 5.4 on admission but normal since. No acidosis. She was initially given an gentle 1 L IV fluids due to vo
--- NOTE | 2023-10-08 11:19 | WPDINTPN ---
Progress Note: A&P Assessment and Plan (1) Acute hypercapnic respiratory failure: Code(s): J96.02 - Acute respiratory failure with hypercapnia Status: Acute Assessment and Plan: 09/27: Patient presented with altered mental status, respiratory distress was found to be an acute hypercapnic respiratory failure, not amenable to BiPAP, was successfully intubated in the ER on 09/28/2023 -acute respiratory failure could be related to baseline interstitial lung disease , pleural effusions, general debility and CHF exacerbation, possible pneumonia - In the ER patient initial ABG showed pH of 7.19, pCO2 of 98, PO2 of 97 on 2 L nasal cannula, Bicarb of 37, pCO2 -patient was placed on BiPAP, repeat ABG showed pH of 7.13, pCO2 of 119, PO2 of 144 on BiPAP /, 80% FiO2, was intubated in the ER Currently patient on CMV mode of ventilation with low tidal volume strategy to avoid barotrauma and volume trauma. -peep of 5, 25% FiO2 -ABGs and chest x-ray reviewed -switch bronchodilators to Xopenex -status post course of ceftriaxone, doxycycline -on Solu-Medrol 10 mg IV daily for her ILD which she has to take at home -patient now on propofol and fentanyl infusion -patient has failed multiple spontaneous breathing trials 10/05: Right thoracentesis with removal of 500 mL off light yellow-colored fluid 10/07: Will try to wean sedation and place patient on SBT 10/[address] IMPRESSION: 1. Diffuse lung disease, stable from 09/28/2023, consistent with pulmonary edema versus pneumonia. 2. Small pleural effusions, right worse than left. Decrease Solumedrol dose (2) Anemia: Code(s): D64.9 - Anemia, unspecified Status: Acute Assessment and Plan: 10/03 patient has chronic anemia but has had drastic drop in hemoglobin this morning. Her hemoglobin was 5 this morning she was on heparin drip which has been supratherapeutic despite following protocol and has been on hold now since last night when her PTT was more than 200. she has no sign of obvious bleeding with no bowel movement and tube feed residual was checked and was clear. She does have edema of both upper extremities and the skin appears bluish but no specific hematoma or bruise. will hold heparin infusion at this time - 10/03: CT scan of chest abdomen pelvis was done and did not show any retroperitoneal or intra-abdominal bleeding her PTT is in normal range and INR only 1.4 and hence she will not benefit any other blood products or protamine patient was transfused 2 units of PRBC and hemoglobin has been stable and will be continue to monitor she had 1 bowel movement which was dark and black suggestive of GI bleeding. - continue Protonix -EGD 10/06: with no signs of recent bleeding, only mild gastritis Will hold anticoagulation until EGD done -hemoglobin stable this morning (3) Interstitial lung disease: Code(s): J84.9 - Interstitial pulmonary disease, unspecified Status: Chronic Assessment and Plan: Shortness of breath, hypercapnic respiratory failure could be related to interstitial lung disease flare - decrease Solu-Medrol dose to 10 mg which is close to her home dose. -continue bronchodilators - patient evaluated by Pulmonary (4) CHF (congestive heart failure): Code(s): I50.9 - Heart failure, unspecified Status: Acute Assessment and Plan: Chest x-ray and CT chest show pulmonary edema and/or pneumonia -elevated proBNP 65690 -chest x-ray with possible pulmonary edema versus pneumonia, -status post Lasix which was held due to worsening creatinine/renal function 09/30/2023: Echocardiogram Summary 1. Complete two-dimensional, color flow and Doppler transthoracic echocardiogram is performed. 2. Left ventricular chamber dimension is normal. 3. Left ventricular systolic function is preserved, estimated at 50-55%. 4. The left ventricular diastolic function is abnormal. 5. E/e' 27 is elevated. 6. Mechanical aorti
[2023-10-08] MEDS: METOPROLOL TARTRATE 25 MG TABLET FEED TUBE (11:43)
[2023-10-08] MEDS: METOPROLOL TARTRATE INJ 5 MG/5 ML VIAL IV PUSH (12:20)
[2023-10-08] MEDS: LEVALBUTEROL NEB 1.25 MG/3 ML INHALATION ×2 (13:29→20:01)
[2023-10-08] MEDS: IPRATROPIUM BR 0.02% INH SOLN 0.5 MG/2.5 ML VIAL INHALATION ×2 (13:29→20:01)
[2023-10-08 16:28] LABS: Glucose Point of Care 221 mg/dl (65-105)
[2023-10-08] MEDS: INSULIN ASPART (*BKC) 100 UNITS/ML SUB-Q ×2 (16:32→20:59)
[2023-10-08 16:34] LABS: Glucose Point of Care 218 mg/dl (65-105)
[2023-10-08 17:33] LABS: Partial Thromboplastin Time 62.1 Seconds (22.3-36.8)
[2023-10-08] MEDS: HEPARIN SODIUM 5,000 UNITS/ML VIAL 1500 UNITS IV PUSH (18:02)
[2023-10-08] MEDS: FENTANYL 2,500MCG/NS250ML(*CRX 2,500 MCG/250 ML BAG 10 MCG IV CONT (18:42)
[2023-10-08] MEDS: METOPROLOL TARTRATE 50 MG TAB FEED TUBE (20:44)
[2023-10-08 21:02] LABS: Glucose Point of Care 207 mg/dl (65-105)
[2023-10-08 21:14] LABS: Hemoglobin 8.3 g/dL (12.0-15.0); Mean Corpuscular HGB Conc 31.9 g/dl (32-36); Mean Corpuscular Hemoglobin 30.2 pg (26-34); Mean Corpuscular Volume 94.5 fl (80-100); Platelet Count Result 201 k/mm3 (150-375); Red Blood Count 2.75 M/mm3 (4.2-5.4); White Blood Count 15.6 K/mm3 (4.5-10.0)
[2023-10-09] VITALS (41 sets, daily range): BP systolic 97–144; BP diastolic 50–103; PULSE 62–119; RESP 14–28; TEMP 36.5–38.1; O2SAT 93–100
[2023-10-09 00:32] LABS: Glucose Point of Care 131 mg/dl (65-105)
[2023-10-09 00:54] LABS: Partial Thromboplastin Time 185.8 Seconds (22.3-36.8)
[2023-10-09] MEDS: LEVALBUTEROL NEB 1.25 MG/3 ML INHALATION ×4 (02:22→20:10)
[2023-10-09] MEDS: IPRATROPIUM BR 0.02% INH SOLN 0.5 MG/2.5 ML VIAL INHALATION ×4 (02:22→20:10)
[2023-10-09 04:57] LABS: Glucose Point of Care 162 mg/dl (65-105)
[2023-10-09 04:58] LABS: Alveolar/Arterial O2 Gradient 43.6 mmHg; Base Excess ABG 3.8 mEq/l (+/-2.0); Carboxyhemoglobin 0.3 % THb (0-2.0); Fractional Inspired Oxygen 30 %; Methemoglobin ABG 0.3 %THb (0-1.5); Oxygen Content ABG 13.7 %vol (16.0-22.0); Oxygen Saturation ABG 98.6 % (95.0-100.0); Oxyhemoglobin 97.9 % THb (90.0-100.0); PO2 ABG 122.1 mmHg (80.0-100.0); PO2 FiO2 Ratio Arterial Blood 4.07 %; Reduced Hemoglobin 1.5 %THb (0-5.0); Total Hemoglobin 9.8 g/dL (12.0-18.0); pH ABG 7.453 (7.350-7.450)
[2023-10-09 04:59] LABS: Device VENTILATOR; Modified Allen's Test Pass; Site Drawn RIGHT RADIAL
[2023-10-09 05:00] LABS: Arterial Blood Gas PEEP 5 cmH2O; Arterial Blood Gas Tidal Volume 300 ml; Arterial Blood Gas Vent Mode CMV; Arterial Blood Gas Ventilator rate 14 /MIN
[2023-10-09 05:00] LABS: Basophils Percent Auto 0.1 % (0.2-1.2); Eosinophils Absolute Auto 0.6 K/mm3 (0-0.3); Eosinophils Percent Auto 3.3 % (0-4.4); Hematocrit 27.3 % (37.0-47.0); Hemoglobin 8.7 g/dL (12.0-15.0); Immature Granulocyte Absolute 0.09 K/mm3 (0.00-0.031); Immature Granulocyte Percent A 0.5 % (0-0.5); Lymphocytes Absolute Auto 1.85 K/mm3 (0.9-3.2); Mean Corpuscular HGB Conc 31.9 g/dl (32-36); Mean Corpuscular Hemoglobin 30.2 pg (26-34); Mean Corpuscular Volume 94.8 fl (80-100); Mean Platelet Volume 10.8 fl (7.4-10.4); Monocytes Absolute Auto 1.1 K/mm3 (0.1-0.6); Monocytes Percent Auto 6.6 % (2.6-8.5); Neutrophils Absolute Auto 13.2 K/mm3 (1.3-6.7); Neutrophils Percent Auto 78.5 % (45.5-73.1); Platelet Count Result 191 k/mm3 (150-375); Red Blood Count 2.88 M/mm3 (4.2-5.4); Red Cell Distribution Width 18.1 % (11.5-14.5); White Blood Count 16.9 K/mm3 (4.5-10.0)
[2023-10-09 05:10] LABS: INR 1.1; Prothrombin Time 14.6 Seconds (11.1-14.7)
[2023-10-09 05:15] LABS: Alanine Aminotransferase 26 U/L (6-35); Albumin Level 3.2 g/dL (3.5-5.1); Alkaline Phosphatase 53 U/L (38-126); Anion Gap 9 mmol/L (4-12); Aspartate Amino Transferase 38 U/L (14-36); Bilirubin,Total 0.5 mg/dL (0.2-1.3); Calcium 8.7 mg/dL (8.4-10.2); Carbon Dioxide 28 mmol/L (22-30); Chloride 106 mmol/L (98-107); Estimated CRCL calculation 18 ml/min; Estimated Glomerular Filt Rate 30; Glucose 163 mg/dL (65-110); Magnesium 2.6 mg/dL (1.6-2.3); Phosphorus 4.3 mg/dL (2.5-4.5); Potassium 3.7 mmol/L (3.4-5.0); Sodium 143 mmol/L (137-145)
[2023-10-09] MEDS: CENTRAL LINE FLUSH 10 ML IV PUSH ×3 (05:32→22:12)
[2023-10-09 06:11] LABS: Blood Urea Nitrogen 122 mg/dL (7-17)
[2023-10-09 07:51] LABS: Glucose Point of Care 87 mg/dl (65-105)
--- NOTE | 2023-10-09 08:46 | P.PNNP_ITS ---
Progress Note: A&P Assessment and Plan (1) ED (acute kidney injury): Code(s): N17.9 - Acute kidney failure, unspecified Status: Acute Assessment and Plan: * creatinine relatively stable at this time * complicated by mild hyperkalemia on admission as well * etiology likely multifactorial: * fluctuating hemodynamics * possible prerenal factors * medications (bactrim, losartan, diuretics) * CHF * hypoxia * other(?) * evaluation to date noted: * renal ultrasound with right kidney atrophy * urine eosinophils negative * urine electrolytes non-prerenal * CPK okay * azotemia likely secondary to steroids, possible GI bleed (although negative EGD) and catabolic state * follow trend of repeat labs and UOP (2) Chronic kidney disease, stage 3: Code(s): N18.30 - Chronic kidney disease, stage 3 unspecified Status: Chronic Assessment and Plan: * has been present for the last few years (per ) * presumably due to hypertension, diabetes, vascular disease, and age-related change * noted creatinine of 1.13mg/dl in February 2023 (GFR ~ 52cc/min) (3) Acute hypercapnic respiratory failure: Code(s): J96.02 - Acute respiratory failure with hypercapnia Status: Acute Assessment and Plan: * required intubation and mechanical ventilation * multiple possible etiologies: * known interstitial lung disease * CHF * infection/pneumonia(?) * on steroids and bronchodilators * s/p thoracentesis on 10/05 * continue ventilator support * possible tracheostomy and PEG?? * diuretic therapy PRN (4) Anemia: Code(s): D64.9 - Anemia, unspecified Status: Acute Assessment and Plan: * noted drop in H/H * s/p PRBC transfusion per protocol * s/p EGD (on 10/06): no signs of recent bleeding, only mild gastritis * follow H/H (5) CHF (congestive heart failure): Code(s): I50.9 - Heart failure, unspecified Status: Acute Assessment and Plan: * admission CXR as well as CT chest demonstrate pulmonary edema and/or pneumonia * [place] [address] * Echo shows preserved systolic function some diastolic dysfunction [id number] mitral regurgitation and mild pulmonary hypertension * resume diuretics as needed -- this may worsen BUN + creatinine but we may have no choice in this matter (6) Interstitial lung disease: Code(s): J84.9 - Interstitial pulmonary disease, unspecified Status: Chronic Assessment and Plan: * on steroids and bronchodilators * Pulmonary on board * follow respiratory status (7) Essential (primary) hypertension: Code(s): I10 - Essential (primary) hypertension Status: Acute Assessment and Plan: * reasonable control * holding anti-HTN medications * follow trend of hemodynamics (8) Mechanical heart valve present: Code(s): Z95.2 - Presence of prosthetic heart valve Status: Acute Assessment and Plan: * mechanical aortic valve * on anticoagulation * follow PT/INR once coumadin resumed (9) Type 2 diabetes mellitus without complications: Code(s): E11.9 - Type 2 diabetes mellitus without complications Status: Acute Assessment and Plan: * follow accu-cheks * glycemic control per freight breaker/hospitalist Will continue to follow. Subjective Date/time seen: 10/09/23 08:46 Interval history: Follow-up for acute kidney injury/acute renal failure on chronic kidney disease.
--- NOTE | 2023-10-09 08:46 | PM.PNNEP ---
Progress Note: A&P Assessment and Plan (1) ED (acute kidney injury): Code(s): N17.9 - Acute kidney failure, unspecified Status: Acute Assessment and Plan: creatinine relatively stable at this time complicated by mild hyperkalemia on admission as well etiology likely multifactorial: fluctuating hemodynamics possible prerenal factors medications (bactrim, losartan, diuretics) CHF hypoxia other(?) evaluation to date noted: renal ultrasound with right kidney atrophy urine eosinophils negative urine electrolytes non-prerenal CPK okay azotemia likely secondary to steroids, possible GI bleed (although negative EGD) and catabolic state follow trend of repeat labs and UOP (2) Chronic kidney disease, stage 3: Code(s): N18.30 - Chronic kidney disease, stage 3 unspecified Status: Chronic Assessment and Plan: has been present for the last few years (per ) presumably due to hypertension, diabetes, vascular disease, and age-related change noted creatinine of 1.13mg/dl in February 2023 (GFR ~ 52cc/min) (3) Acute hypercapnic respiratory failure: Code(s): J96.02 - Acute respiratory failure with hypercapnia Status: Acute Assessment and Plan: required intubation and mechanical ventilation multiple possible etiologies: known interstitial lung disease CHF infection/pneumonia(?) on steroids and bronchodilators s/p thoracentesis on 10/05 continue ventilator support possible tracheostomy and PEG?? diuretic therapy PRN (4) Anemia: Code(s): D64.9 - Anemia, unspecified Status: Acute Assessment and Plan: noted drop in H/H s/p PRBC transfusion per protocol s/p EGD (on 10/06): no signs of recent bleeding, only mild gastritis follow H/H (5) CHF (congestive heart failure): Code(s): I50.9 - Heart failure, unspecified Status: Acute Assessment and Plan: admission CXR as well as CT chest demonstrate pulmonary edema and/[place] [address] Echo shows preserved systolic function some diastolic dysfunction [id number] mitral regurgitation and mild pulmonary hypertension resume diuretics as needed -- this may worsen BUN + creatinine but we may have no choice in this matter (6) Interstitial lung disease: Code(s): J84.9 - Interstitial pulmonary disease, unspecified Status: Chronic Assessment and Plan: on steroids and bronchodilators Pulmonary on board follow respiratory status (7) Essential (primary) hypertension: Code(s): I10 - Essential (primary) hypertension Status: Acute Assessment and Plan: reasonable control holding anti-HTN medications follow trend of hemodynamics (8) Mechanical heart valve present: Code(s): Z95.2 - Presence of prosthetic heart valve Status: Acute Assessment and Plan: mechanical aortic valve on anticoagulation follow PT/INR once coumadin resumed (9) Type 2 diabetes mellitus without complications: Code(s): E11.9 - Type 2 diabetes mellitus without complications Status: Acute Assessment and Plan: follow accu-cheks glycemic control per hotel maintenance engineer/hospitalist Will continue to follow. Subjective Date/time seen: 10/09/23 08:46 Interval history: Follow-up for acute kidney injury/acute renal failure on chronic kidney disease. In spite of relative stability of creatinine and reasonable urine output, BUN remains elevated; remains intubated and on mechanical ventilation at the time of my visit; remains hemodynamically stable; no other significant issues overnight or earlier this AM. Exam Narrative: General: thin female intubated/sedated on mechanical ventilation Heart: normal S1 and S2; no rub Lungs: coarse breath sounds bilaterally Abdomen: soft, nontender, nondistended, + bowel sounds Extremities: no cyanosis or clubbing; trace - 1+ edema S
[2023-10-09] MEDS: methylPREDNISolone SOD SUCC 40 MG VIAL 10 MG IV PUSH (09:50)
[2023-10-09] MEDS: PANTOPRAZOLE SODIUM IV 40 MG VIAL IV PUSH ×2 (09:50→22:12)
[2023-10-09 09:51] LABS: Glucose Point of Care 112 mg/dl (65-105)
[2023-10-09] MEDS: MINERAL OIL/WHITE PETROLATUM OINTMENT 1 APPLIC EACH EYE ×2 (09:51→22:12)
[2023-10-09] MEDS: ATORVASTATIN 40 MG TABLET PO (09:51)
[2023-10-09] MEDS: METOPROLOL TARTRATE 50 MG TAB FEED TUBE ×2 (09:51→20:10)
[2023-10-09] MEDS: dexmedeTOMIDine 400 MCG/100 ML 400 MCG/100 ML BAG IV CONT (10:44)
--- NOTE | 2023-10-09 11:10 | PCFNICU ---
ICU Rounding Note: Pt current nutrition is Vital AF 1.2 at 45 ml/hr. Last recorded weight is 42 kg, down from 43.4 kg on admit. Bowel Motility: +BM reported 10/08 Labs Reviewed: GRF 30, BUN 122, Cr 1.7,Glu 163, Mg 2.63,Alb 3.2 Meds Noted: Heparin, Lipitor, Precedex, Propofol, Versed. Skin: WNL Additional Notes: Patient remains on mechanical vent. Sedation is being transitioned from Propofol to Precedex. Tube feedings are being tolerated of Vital AF 1.2 at 45 ml/hr. Flush 30 ml q 4 hours. Thoracentesis 10/05 removing 500 ml fluid. Nephrology consulted due to kidney function. Agree with diet orders at this time. Monitoring tube feeding tolerance, weights, labs, plan of care Follow daily in ICU rounds, reassess Tuesdays and Fridays.
[2023-10-09 11:52] LABS: Glucose Point of Care 113 mg/dl (65-105)
[2023-10-09] MEDS: PROPOFOL IV EMULSION 100 ML 6.41 MG IV CONT (12:00)
--- NOTE | 2023-10-09 13:27 | WPDINTPN ---
Progress Note: A&P Assessment and Plan (1) Acute hypercapnic respiratory failure: Code(s): J96.02 - Acute respiratory failure with hypercapnia Status: Acute Assessment and Plan: 09/27: Patient presented with altered mental status, respiratory distress was found to be an acute hypercapnic respiratory failure, not amenable to BiPAP, was successfully intubated in the ER on 09/28/2023 -acute respiratory failure could be related to baseline interstitial lung disease , pleural effusions, general debility and CHF exacerbation, possible pneumonia - In the ER patient initial ABG showed pH of 7.19, pCO2 of 98, PO2 of 97 on 2 L nasal cannula, Bicarb of 37, pCO2 -patient was placed on BiPAP, repeat ABG showed pH of 7.13, pCO2 of 119, PO2 of 144 on BiPAP 18/, 80% FiO2, was intubated in the ER Currently patient on CMV mode of ventilation with low tidal volume strategy to avoid barotrauma and volume trauma. -peep of 5, 25% FiO2 -ABGs and chest x-ray reviewed -switch bronchodilators to Xopenex -status post course of ceftriaxone, doxycycline -on Solu-Medrol 10 mg IV daily for her ILD which she has to take at home -patient now on propofol and fentanyl infusion. Have asked the bedside RN to start Precedex infusion, and discontinue propofol -patient has failed multiple spontaneous breathing trials 10/05: Right thoracentesis with removal of 500 mL off light yellow-colored fluid 10/07: Sedation was wean, patient did not tolerate pressure support or ASV as she was significantly tachycardic after short while, was also tachypneic, with decrease tidal volumes. Patient was placed back on CMV mode 10/[address] IMPRESSION: 1. Diffuse lung disease, stable from 09/28/2023, consistent with pulmonary edema versus pneumonia. 2. Small pleural effusions, right worse than left. (2) Anemia: Code(s): D64.9 - Anemia, unspecified Status: Acute Assessment and Plan: 10/03 patient has chronic anemia but has had drastic drop in hemoglobin this morning. Her hemoglobin was 5 this morning she was on heparin drip which has been supratherapeutic despite following protocol and has been on hold now since last night when her PTT was more than 200. She has no sign of obvious bleeding with no bowel movement and tube feed residual was checked and was clear. She does have edema of both upper extremities and the skin appears bluish but no specific hematoma or bruise. will hold heparin infusion at this time - 10/03: CT scan of chest abdomen pelvis was done and did not show any retroperitoneal or intra-abdominal bleeding her PTT is in normal range and INR only 1.4 and hence she will not benefit any other blood products or protamine patient was transfused 2 units of PRBC and hemoglobin has been stable and will be continue to monitor she had 1 bowel movement which was dark and black suggestive of GI bleeding. - continue Protonix -EGD 10/06: with no signs of recent bleeding, only mild gastritis Will hold anticoagulation until EGD done -hemoglobin stable this morning (3) Interstitial lung disease: Code(s): J84.9 - Interstitial pulmonary disease, unspecified Status: Chronic Assessment and Plan: Shortness of breath, hypercapnic respiratory failure could be related to interstitial lung disease flare - decrease Solu-Medrol dose to 10 mg which is close to her home dose. -continue bronchodilators - patient evaluated by Pulmonary (4) CHF (congestive heart failure): Code(s): I50.9 - Heart failure, unspecified Status: Acute Assessment and Plan: Chest x-ray and CT chest show pulmonary edema and/or pneumonia -elevated proBNP 28270 -chest x-ray with possible pulmonary edema versus pneumonia, -10/08: patient is positive 8 L in fluid balance, will diurese today 09/30/2023: Echocardiogram Summary 1. Complete two-dimensional, color flow and Doppler transthoracic echocardiogram is performed. 2. Left ventricular chambe
[2023-10-09] MEDS: BUMETANIDE INJ 1 MG/4 ML VIAL IV PUSH (14:06)
[2023-10-09 15:47] LABS: Glucose Point of Care 183 mg/dl (65-105)
[2023-10-09 16:14] LABS: Partial Thromboplastin Time 47.2 Seconds (22.3-36.8)
[2023-10-09] MEDS: HEPARIN SODIUM 5,000 UNITS/ML VIAL 3500 UNITS IV PUSH (16:35)
[2023-10-09] MEDS: FENTANYL 2,500MCG/NS250ML(*CRX 2,500 MCG/250 ML BAG 10 MCG IV CONT (19:06)
[2023-10-09] MEDS: dexmedeTOMIDine 400 MCG/100 ML 400 MCG/100 ML BAG 15.75 MCG IV CONT (19:06)
[2023-10-09 19:37] LABS: Glucose Point of Care 196 mg/dl (65-105)
[2023-10-09 23:34] LABS: Partial Thromboplastin Time 184.3 Seconds (22.3-36.8)
[2023-10-10] VITALS (37 sets, daily range): BP systolic 116–148; BP diastolic 56–102; PULSE 92–197; RESP 14–26; TEMP 37.1–38.6; O2SAT 95–100
[2023-10-10 00:45] LABS: Glucose Point of Care 166 mg/dl (65-105)
[2023-10-10] MEDS: ACETAMINOPHEN ELIXIR 325 MG/10.15 ML UDC 650 MG FEED TUBE (00:55)
[2023-10-10] MEDS: polyethylene glycoL 3350 17 GM POWD.PACK FEED TUBE (00:56)
[2023-10-10] MEDS: hydrALAZINE HCL 20 MG/ML VIAL 10 MG IV PUSH (01:03)
[2023-10-10] MEDS: dexmedeTOMIDine 400 MCG/100 ML 400 MCG/100 ML BAG 15.75 MCG IV CONT ×4 (01:42→20:52)
[2023-10-10] MEDS: IPRATROPIUM BR 0.02% INH SOLN 0.5 MG/2.5 ML VIAL INHALATION ×4 (01:53→20:15)
[2023-10-10] MEDS: LEVALBUTEROL NEB 1.25 MG/3 ML INHALATION ×4 (01:53→20:14)
[2023-10-10] MEDS: PHARMACIST COMMUNICATION ORDER 1 EACH XX (02:35)
[2023-10-10 05:01] LABS: Basophils Percent Auto 0.1 % (0.2-1.2); Eosinophils Absolute Auto 0.4 K/mm3 (0-0.3); Eosinophils Percent Auto 1.7 % (0-4.4); Hematocrit 25.5 % (37.0-47.0); Hemoglobin 8.5 g/dL (12.0-15.0); Immature Granulocyte Absolute 0.19 K/mm3 (0.00-0.031); Immature Granulocyte Percent A 0.9 % (0-0.5); Lymphocytes Absolute Auto 1.32 K/mm3 (0.9-3.2); Mean Corpuscular HGB Conc 33.3 g/dl (32-36); Mean Corpuscular Hemoglobin 30.6 pg (26-34); Mean Corpuscular Volume 91.7 fl (80-100); Mean Platelet Volume 10.1 fl (7.4-10.4); Monocytes Absolute Auto 1.1 K/mm3 (0.1-0.6); Monocytes Percent Auto 5.2 % (2.6-8.5); Neutrophils Absolute Auto 18.9 K/mm3 (1.3-6.7); Neutrophils Percent Auto 86.1 % (45.5-73.1); Platelet Count Result 194 k/mm3 (150-375); Red Blood Count 2.78 M/mm3 (4.2-5.4); Red Cell Distribution Width 17.6 % (11.5-14.5); White Blood Count 21.9 K/mm3 (4.5-10.0)
[2023-10-10 05:12] LABS: Alanine Aminotransferase 25 U/L (6-35); Albumin Level 3.2 g/dL (3.5-5.1); Alkaline Phosphatase 58 U/L (38-126); Anion Gap 10 mmol/L (4-12); Aspartate Amino Transferase 38 U/L (14-36); Bilirubin,Total 0.7 mg/dL (0.2-1.3); Blood Urea Nitrogen 111 mg/dL (7-17); Calcium 8.4 mg/dL (8.4-10.2); Carbon Dioxide 26 mmol/L (22-30); Chloride 105 mmol/L (98-107); Estimated CRCL calculation 25 ml/min; Estimated Glomerular Filt Rate 44; Glucose 227 mg/dL (65-110); Magnesium 2.3 mg/dL (1.6-2.3); Phosphorus 2.7 mg/dL (2.5-4.5); Potassium 3.1 mmol/L (3.4-5.0); Sodium 141 mmol/L (137-145)
[2023-10-10] MEDS: CENTRAL LINE FLUSH 10 ML IV PUSH ×3 (05:33→22:17)
[2023-10-10 05:43] LABS: Alveolar/Arterial O2 Gradient 38.7 mmHg; Carboxyhemoglobin 0.7 % THb (0-2.0); Fractional Inspired Oxygen 25 %; HCO3 ABG 26.6 mEq/l (22.0-26.0); Methemoglobin ABG 0.3 %THb (0-1.5); Oxygen Content ABG 11.7 %vol (16.0-22.0); Oxygen Saturation ABG 98.2 % (95.0-100.0); Oxyhemoglobin 96.6 % THb (90.0-100.0); PCO2 ABG 32.3 mmHg (35.0-45.0); PO2 ABG 101.2 mmHg (80.0-100.0); PO2 FiO2 Ratio Arterial Blood 4.05 %; Reduced Hemoglobin 2.4 %THb (0-5.0); Total Hemoglobin 8.5 g/dL (12.0-18.0)
[2023-10-10 05:44] LABS: Device VENTILATOR; Modified Allen's Test Pass; Site Drawn RIGHT RADIAL; pH ABG 7.534 (7.350-7.450)
[2023-10-10 05:45] LABS: Arterial Blood Gas PEEP 5 cmH2O; Arterial Blood Gas Tidal Volume 300 ml; Arterial Blood Gas Vent Mode CMV; Arterial Blood Gas Ventilator rate 14 /MIN
[2023-10-10 07:46] LABS: INR 1.2; Prothrombin Time 15.8 Seconds (11.1-14.7)
[2023-10-10 07:48] LABS: Partial Thromboplastin Time 59.6 Seconds (22.3-36.8)
--- NOTE | 2023-10-10 08:26 | PM.PNNEP ---
Progress Note: A&P Assessment and Plan (1) ED (acute kidney injury): Code(s): N17.9 - Acute kidney failure, unspecified Status: Acute Assessment and Plan: creatinine relatively stable if note better today complicated by mild hyperkalemia on admission as well etiology likely multifactorial: fluctuating hemodynamics possible prerenal factors medications (bactrim, losartan, diuretics) CHF hypoxia other(?) evaluation to date noted: renal ultrasound with right kidney atrophy urine eosinophils negative urine electrolytes non-prerenal CPK okay azotemia likely secondary to steroids, possible GI bleed (although negative EGD) and catabolic state some improvement in-spite of IV diuretic use follow trend of repeat labs and UOP (2) Chronic kidney disease, stage 3: Code(s): N18.30 - Chronic kidney disease, stage 3 unspecified Status: Chronic Assessment and Plan: has been present for the last few years (per ) presumably due to hypertension, diabetes, vascular disease, and age-related change noted creatinine of 1.13mg/dl in February 2023 (GFR ~ 52cc/min) (3) Acute hypercapnic respiratory failure: Code(s): J96.02 - Acute respiratory failure with hypercapnia Status: Acute Assessment and Plan: required intubation and mechanical ventilation multiple possible etiologies: known interstitial lung disease CHF infection/pneumonia(?) on steroids and bronchodilators s/p thoracentesis on 10/05 continue ventilator support possible tracheostomy and PEG?? diuretic therapy PRN (4) Anemia: Code(s): D64.9 - Anemia, unspecified Status: Acute Assessment and Plan: noted drop in H/H s/p PRBC transfusion per protocol s/p EGD (on 10/06): no signs of recent bleeding, only mild gastritis follow H/H (5) CHF (congestive heart failure): Code(s): I50.9 - Heart failure, unspecified Status: Acute Assessment and Plan: admission CXR as well as CT chest demonstrate pulmonary edema and/[place] [address] Echo shows preserved systolic function some diastolic dysfunction [id number] mitral regurgitation and mild pulmonary hypertension resume diuretics as needed -- this may worsen BUN + creatinine but we may have no choice in this matter (6) Interstitial lung disease: Code(s): J84.9 - Interstitial pulmonary disease, unspecified Status: Chronic Assessment and Plan: on steroids and bronchodilators Pulmonary on board follow respiratory status (7) Essential (primary) hypertension: Code(s): I10 - Essential (primary) hypertension Status: Acute Assessment and Plan: reasonable control holding anti-HTN medications follow trend of hemodynamics (8) Mechanical heart valve present: Code(s): Z95.2 - Presence of prosthetic heart valve Status: Acute Assessment and Plan: mechanical aortic valve on anticoagulation follow PT/INR once coumadin resumed (9) Type 2 diabetes mellitus without complications: Code(s): E11.9 - Type 2 diabetes mellitus without complications Status: Acute Assessment and Plan: follow accu-cheks glycemic control per excel vba developer/hospitalist Will continue to follow. Subjective Date/time seen: 10/10/23 08:26 Interval history: Follow-up for acute kidney injury/acute renal failure on chronic kidney disease. Remains intubated and on ventilator support; reasonable urine output in response to IV diuretics with noted improvement in renal function/creatinine as well as BUN; remains hemodynamically stable with rate controlled aftrial fibrillation; febrile overnight but currently fever free; no other significant changes noted at this time. Exam Narrative: General: thin female intubated/sedated on mechanical ventilation Heart: normal S1 and S2; no rub Lungs: coarse breath soun
--- NOTE | 2023-10-10 08:26 | P.PNNP_ITS ---
Progress Note: A&P Assessment and Plan (1) ED (acute kidney injury): Code(s): N17.9 - Acute kidney failure, unspecified Status: Acute Assessment and Plan: * creatinine relatively stable if note better today * complicated by mild hyperkalemia on admission as well * etiology likely multifactorial: * fluctuating hemodynamics * possible prerenal factors * medications (bactrim, losartan, diuretics) * CHF * hypoxia * other(?) * evaluation to date noted: * renal ultrasound with right kidney atrophy * urine eosinophils negative * urine electrolytes non-prerenal * CPK okay * azotemia likely secondary to steroids, possible GI bleed (although negative EGD) and catabolic state * some improvement in-spite of IV diuretic use * follow trend of repeat labs and UOP (2) Chronic kidney disease, stage 3: Code(s): N18.30 - Chronic kidney disease, stage 3 unspecified Status: Chronic Assessment and Plan: * has been present for the last few years (per ) * presumably due to hypertension, diabetes, vascular disease, and age-related change * noted creatinine of 1.13mg/dl in February 2023 (GFR ~ 52cc/min) (3) Acute hypercapnic respiratory failure: Code(s): J96.02 - Acute respiratory failure with hypercapnia Status: Acute Assessment and Plan: * required intubation and mechanical ventilation * multiple possible etiologies: * known interstitial lung disease * CHF * infection/pneumonia(?) * on steroids and bronchodilators * s/p thoracentesis on 10/05 * continue ventilator support * possible tracheostomy and PEG?? * diuretic therapy PRN (4) Anemia: Code(s): D64.9 - Anemia, unspecified Status: Acute Assessment and Plan: * noted drop in H/H * s/p PRBC transfusion per protocol * s/p EGD (on 10/06): no signs of recent bleeding, only mild gastritis * follow H/H (5) CHF (congestive heart failure): Code(s): I50.9 - Heart failure, unspecified Status: Acute Assessment and Plan: * admission CXR as well as CT chest demonstrate pulmonary edema and/or pneumonia * [place] [address] * Echo shows preserved systolic function some diastolic dysfunction [id number] mitral regurgitation and mild pulmonary hypertension * resume diuretics as needed -- this may worsen BUN + creatinine but we may have no choice in this matter (6) Interstitial lung disease: Code(s): J84.9 - Interstitial pulmonary disease, unspecified Status: Chronic Assessment and Plan: * on steroids and bronchodilators * Pulmonary on board * follow respiratory status (7) Essential (primary) hypertension: Code(s): I10 - Essential (primary) hypertension Status: Acute Assessment and Plan: * reasonable control * holding anti-HTN medications * follow trend of hemodynamics (8) Mechanical heart valve present: Code(s): Z95.2 - Presence of prosthetic heart valve Status: Acute Assessment and Plan: * mechanical aortic valve * on anticoagulation * follow PT/INR once coumadin resumed (9) Type 2 diabetes mellitus without complications: Code(s): E11.9 - Type 2 diabetes mellitus without complications Status: Acute Assessment and Plan: * follow accu-cheks * glycemic control per photographer apprentice/hospitalist Will continue to follow. Subjective Date/time seen: 10/10/23 08:26 Interval history: Follow-up for acute
[2023-10-10] MEDS: METOPROLOL TARTRATE 25 MG TABLET FEED TUBE (08:37)
[2023-10-10] MEDS: POTASSIUM CHLORIDE 20 MEQ PACKET (FOR LIQUID) 40 MEQ FEED TUBE (08:37)
[2023-10-10] MEDS: methylPREDNISolone SOD SUCC 40 MG VIAL 10 MG IV PUSH (08:38)
[2023-10-10] MEDS: PANTOPRAZOLE SODIUM IV 40 MG VIAL IV PUSH ×2 (08:38→22:16)
[2023-10-10] MEDS: HEPARIN SODIUM 5,000 UNITS/ML VIAL 1500 UNITS IV PUSH (08:38)
[2023-10-10] MEDS: ATORVASTATIN 40 MG TABLET PO (08:38)
[2023-10-10] MEDS: MINERAL OIL/WHITE PETROLATUM OINTMENT 1 APPLIC EACH EYE ×2 (08:39→22:16)
[2023-10-10] MEDS: METOPROLOL TARTRATE 50 MG TAB PO (09:08)
--- NOTE | 2023-10-10 09:50 | P.CDI_ITS ---
CDI Query Clarification Request CHF has been documented. Please specify type and acuity of heart failure if known. Clinical Indicators: BNP 14,000, CXR states possible pulmonary edema vs pneumonia. Treatment: Bumex IV give on 10/08. * Acute * Chronic * Acute on Chronic * Unknown * Systolic * Diastolic * Combined Systolic and Diastolic * Unknown <Maritza Akins RN - Last Filed: 10/10/23 09:52> Clarified Diagnosis Clarified Diagnosis: echo showing abnormal diastolic dysfunction, most likely patient had acute on chronic diastolic CHF. <Gretta Bowen MD - Last Filed: 10/27/23 10:19>
[2023-10-10 11:42] LABS: Glucose Point of Care 239 mg/dl (65-105)
--- NOTE | 2023-10-10 11:42 | WPDINTPN ---
Progress Note: A&P Assessment and Plan (1) Acute hypercapnic respiratory failure: Code(s): J96.02 - Acute respiratory failure with hypercapnia Status: Acute Assessment and Plan: 09/27: Patient presented with altered mental status, respiratory distress was found to be an acute hypercapnic respiratory failure, not amenable to BiPAP, was successfully intubated in the ER on 09/28/2023 -acute respiratory failure could be related to baseline interstitial lung disease , pleural effusions, general debility and CHF exacerbation, possible pneumonia - In the ER patient initial ABG showed pH of 7.19, pCO2 of 98, PO2 of 97 on 2 L nasal cannula, Bicarb of 37, pCO2 -patient was placed on BiPAP, repeat ABG showed pH of 7.13, pCO2 of 119, PO2 of 144 on BiPAP 05/07, 80% FiO2, was intubated in the ER Currently patient on CMV mode of ventilation with low tidal volume strategy to avoid barotrauma and volume trauma. -peep of 5, 25% FiO2 -ABGs and chest x-ray reviewed -switch bronchodilators to Xopenex -status post course of ceftriaxone, doxycycline -on Solu-Medrol 10 mg IV daily for her ILD which she has to take at home -patient now on low-dose fentanyl and Precedex infusion, more awake -10/09: responded well to diuretics on 10/08, placed patient this morning on PSV 09/22, and has been tolerating. Will diurese again today 10/05: Right thoracentesis with removal of 500 mL off light yellow-colored fluid 10/07: Sedation was wean, patient did not tolerate pressure support or ASV as she was significantly tachycardic after short while, was also tachypneic, with decrease tidal volumes. Patient was placed back on CMV mode 10/[address] IMPRESSION: 1. Diffuse lung disease, stable from 09/28/2023, consistent with pulmonary edema versus pneumonia. 2. Small pleural effusions, right worse than left. (2) Anemia: Code(s): D64.9 - Anemia, unspecified Status: Acute Assessment and Plan: 10/03 patient has chronic anemia but has had drastic drop in hemoglobin this morning. Her hemoglobin was 5 this morning she was on heparin drip which has been supratherapeutic despite following protocol and has been on hold now since last night when her PTT was more than 200. She has no sign of obvious bleeding with no bowel movement and tube feed residual was checked and was clear. She does have edema of both upper extremities and the skin appears bluish but no specific hematoma or bruise. will hold heparin infusion at this time - 10/03: CT scan of chest abdomen pelvis was done and did not show any retroperitoneal or intra-abdominal bleeding her PTT is in normal range and INR only 1.4 and hence she will not benefit any other blood products or protamine patient was transfused 2 units of PRBC and hemoglobin has been stable and will be continue to monitor she had 1 bowel movement which was dark and black suggestive of GI bleeding. - continue Protonix -EGD 10/06: with no signs of recent bleeding, only mild gastritis Will hold anticoagulation until EGD done -hemoglobin stable this morning (3) Interstitial lung disease: Code(s): J84.9 - Interstitial pulmonary disease, unspecified Status: Chronic Assessment and Plan: Shortness of breath, hypercapnic respiratory failure could be related to interstitial lung disease flare - decrease Solu-Medrol dose to 10 mg which is close to her home dose. -continue bronchodilators - patient evaluated by Pulmonary (4) CHF (congestive heart failure): Code(s): I50.9 - Heart failure, unspecified Status: Acute Assessment and Plan: Chest x-ray and CT chest show pulmonary edema and/or pneumonia -elevated proBNP 07759 -chest x-ray with possible pulmonary edema versus pneumonia, -10/08: patient is positive 8 L in fluid balance, diuresed well - will repeat diuresis today 09/30/2023: Echocardiogram Summary 1. Complete two-dimensional, color flow and Doppler transthoracic echocardiogra
--- NOTE | 2023-10-10 11:45 | PCFNICU ---
ICU Rounding Note: Pt current nutrition is Vital AF 1.2 at 45 ml/hr. Last recorded weight is 46.9 kg, up from 43.4 kg on admit. Bowel Motility: +BM reported 10/08 Labs Reviewed:Glu 227, BUN 111, GFR 44, Alb 3.2 Meds Noted:Heparin, Fentanyl, Miralax, Precedex. Skin: WNL Additional Notes: Patient remains on mechanical vent. Tube feedings are being tolerated of Vital AF 1.2 at 45 ml/hr. Flush 30 ml q 4 hours. Discussions regarding breathing trail today. Agree with diet orders. Monitoring tube feeding tolerance, weights, labs, plan of care Follow daily in ICU rounds, reassess Tuesdays and Fridays.
[2023-10-10] MEDS: HEPARIN SOD/D5W 100 UNITS/ML 25,000 UNITS/250 ML BAG 6 UNITS IV CONT (11:47)
[2023-10-10] MEDS: INSULIN ASPART (*BKC) 100 UNITS/ML SUB-Q ×2 (11:47→17:46)
[2023-10-10 12:04] LABS: Add Urine Microscopic? NO; Appearance Urine Clear (Clear); Bilirubin Urine Negative (Negative); Blood Urine Negative (Negative); Color Urine Yellow (Yellow); Glucose Urine UA Negative (Negative); Ketones Urine Negative (Negative); Leukocyte Esterase Ur Negative LEU/UL (Negative); Nitrate Urine Negative (Negative); Protein Urine Negative (Negative); Specific Grav Ur 1.014 (1.001-1.035); Urobilinogen Urine 0.2 mg/dL (<2.0)
[2023-10-10] MEDS: BUMETANIDE INJ 1 MG/4 ML VIAL IV PUSH (12:07)
[2023-10-10] MEDS: POTASSIUM CHLORIDE 20 MEQ PACKET (FOR LIQUID) FEED TUBE (12:57)
[2023-10-10 15:05] LABS: Hematocrit 24.9 % (37.0-47.0); Hemoglobin 8.2 g/dL (12.0-15.0); Mean Corpuscular HGB Conc 32.9 g/dl (32-36); Mean Corpuscular Hemoglobin 30.6 pg (26-34); Mean Corpuscular Volume 92.9 fl (80-100); Mean Platelet Volume 10.4 fl (7.4-10.4); Platelet Count Result 186 k/mm3 (150-375); Red Blood Count 2.68 M/mm3 (4.2-5.4); Red Cell Distribution Width 18.2 % (11.5-14.5)
[2023-10-10 15:18] LABS: Partial Thromboplastin Time 105.6 Seconds (22.3-36.8)
[2023-10-10] MEDS: ASPIRIN 81 MG CHEWABLE TABLET PO (17:45)
[2023-10-10 18:39] LABS: Glucose Point of Care 249 mg/dl (65-105)
--- NOTE | 2023-10-10 21:09 | PC.NURSE ---
Verified with supercharger mechanic Tiffany that patient's bed was zeroed this a.m. Call placed to Kendrick in pharmacy who updated dosing weight on precedex gtt to reflect current weight and mls/hr that is running on the IV pump.
[2023-10-10] MEDS: METOPROLOL TARTRATE 25 MG TABLET 75 MG FEED TUBE (22:16)
[2023-10-10 22:18] LABS: Partial Thromboplastin Time 165.6 Seconds (22.3-36.8)
[2023-10-11] VITALS (42 sets, daily range): BP systolic 98–147; BP diastolic 48–101; PULSE 69–121; RESP 15–30; TEMP 36.6–37.3; O2SAT 93–99
[2023-10-11] MEDS: INSULIN ASPART (*BKC) 100 UNITS/ML SUB-Q ×2 (00:58→11:58)
[2023-10-11 01:03] LABS: Glucose Point of Care 208 mg/dl (65-105)
[2023-10-11] MEDS: IPRATROPIUM BR 0.02% INH SOLN 0.5 MG/2.5 ML VIAL INHALATION ×4 (02:20→20:16)
[2023-10-11] MEDS: LEVALBUTEROL NEB 1.25 MG/3 ML INHALATION ×4 (02:20→20:16)
[2023-10-11] MEDS: dexmedeTOMIDine 400 MCG/100 ML 400 MCG/100 ML BAG 17.59 MCG IV CONT ×4 (02:35→18:09)
[2023-10-11] MEDS: CENTRAL LINE FLUSH 10 ML IV PUSH ×3 (06:20→21:44)
[2023-10-11 06:27] LABS: Basophils Absolute Auto 0.1 K/mm3 (0.0-0.1); Basophils Percent Auto 0.2 % (0.2-1.2); Eosinophils Absolute Auto 0.2 K/mm3 (0-0.3); Eosinophils Percent Auto 0.6 % (0-4.4); Hematocrit 24.9 % (37.0-47.0); Hemoglobin 7.8 g/dL (12.0-15.0); Immature Granulocyte Absolute 0.24 K/mm3 (0.00-0.031); Immature Granulocyte Percent A 0.8 % (0-0.5); Lymphocytes Absolute Auto 1.37 K/mm3 (0.9-3.2); Lymphocytes Percent Auto 4.7 % (18.3-44.2); Mean Corpuscular HGB Conc 31.3 g/dl (32-36); Mean Corpuscular Hemoglobin 30.1 pg (26-34); Mean Corpuscular Volume 96.1 fl (80-100); Mean Platelet Volume 10.8 fl (7.4-10.4); Monocytes Percent Auto 3.5 % (2.6-8.5); Neutrophils Absolute Auto 26.4 K/mm3 (1.3-6.7); Neutrophils Percent Auto 90.2 % (45.5-73.1); Platelet Count Result 188 k/mm3 (150-375); Red Blood Count 2.59 M/mm3 (4.2-5.4); Red Cell Distribution Width 18.6 % (11.5-14.5); White Blood Count 29.2 K/mm3 (4.5-10.0)
[2023-10-11 06:33] LABS: Glucose Point of Care 180 mg/dl (65-105)
[2023-10-11 06:46] LABS: Alanine Aminotransferase 26 U/L (6-35); Albumin Level 3.1 g/dL (3.5-5.1); Alkaline Phosphatase 53 U/L (38-126); Anion Gap 8 mmol/L (4-12); Aspartate Amino Transferase 41 U/L (14-36); Bilirubin,Total 0.5 mg/dL (0.2-1.3); Blood Urea Nitrogen 90 mg/dL (7-17); Calcium 8.2 mg/dL (8.4-10.2); Carbon Dioxide 28 mmol/L (22-30); Chloride 105 mmol/L (98-107); Estimated CRCL calculation 32 ml/min; Estimated Glomerular Filt Rate 55; Glucose 205 mg/dL (65-110); Magnesium 2.3 mg/dL (1.6-2.3); Phosphorus 3.1 mg/dL (2.5-4.5); Potassium 3.5 mmol/L (3.4-5.0); Sodium 141 mmol/L (137-145)
[2023-10-11 06:47] LABS: Alveolar/Arterial O2 Gradient 56.9 mmHg; Base Excess ABG 1.8 mEq/l (+/-2.0); Device VENTILATOR; Fractional Inspired Oxygen 25 %; HCO3 ABG 25.2 mEq/l (22.0-26.0); Modified Allen's Test Pass; Oxygen Content ABG 13.8 %vol (16.0-22.0); Oxygen Saturation ABG 96.6 % (95.0-100.0); Oxyhemoglobin 95.5 % THb (90.0-100.0); PCO2 ABG 34.9 mmHg (35.0-45.0); PO2 ABG 79.9 mmHg (80.0-100.0); Site Drawn RIGHT RADIAL; Total Hemoglobin 10.2 g/dL (12.0-18.0); pH ABG 7.476 (7.350-7.450)
[2023-10-11 06:48] LABS: Arterial Blood Gas PEEP 5 cmH2O; Arterial Blood Gas Vent Mode CMV; Arterial Blood Gas Ventilator rate 14 /MIN
[2023-10-11 06:49] LABS: Arterial Blood Gas Tidal Volume 300 ml
[2023-10-11 07:12] LABS: INR 1.2
[2023-10-11 07:14] LABS: Partial Thromboplastin Time 79.6 Seconds (22.3-36.8)
[2023-10-11] MEDS: METOPROLOL TARTRATE 25 MG TABLET 75 MG FEED TUBE ×2 (08:22→21:43)
[2023-10-11] MEDS: ATORVASTATIN 40 MG TABLET PO (08:22)
[2023-10-11] MEDS: methylPREDNISolone SOD SUCC 40 MG VIAL 10 MG IV PUSH (08:22)
[2023-10-11] MEDS: PANTOPRAZOLE SODIUM IV 40 MG VIAL IV PUSH ×2 (08:22→21:43)
[2023-10-11] MEDS: POTASSIUM CHLORIDE 20 MEQ PACKET (FOR LIQUID) 40 MEQ FEED TUBE (08:22)
[2023-10-11] MEDS: MINERAL OIL/WHITE PETROLATUM OINTMENT 1 APPLIC EACH EYE ×2 (08:23→21:44)
[2023-10-11] MEDS: BUMETANIDE INJ 1 MG/4 ML VIAL IV PUSH (08:25)
[2023-10-11 08:26] LABS: Glucose Point of Care 174 mg/dl (65-105)
[2023-10-11] MEDS: INSULIN GLARGINE (*BKC) 100 UNITS/ML 7 UNITS SUB-Q (08:29)
[2023-10-11] MEDS: FENTANYL 2,500MCG/NS250ML(*CRX 2,500 MCG/250 ML BAG IV CONT (08:35)
--- NOTE | 2023-10-11 09:11 | WPDINTPN ---
Progress Note: A&P Assessment and Plan (1) Acute hypercapnic respiratory failure: Code(s): J96.02 - Acute respiratory failure with hypercapnia Status: Acute Assessment and Plan: 09/27: Patient presented with altered mental status, respiratory distress was found to be an acute hypercapnic respiratory failure, not amenable to BiPAP, was successfully intubated in the ER on 09/28/2023 -acute respiratory failure could be related to baseline interstitial lung disease , pleural effusions, general debility and CHF exacerbation, possible pneumonia Currently patient on CMV mode of ventilation with low tidal volume strategy to avoid barotrauma and volume trauma. -peep of 5, 25% FiO2 -ABGs and chest x-ray reviewed -continue bronchodilators -status post course of ceftriaxone, doxycycline -on Solu-Medrol 10 mg IV daily for her ILD which she has to take at home -patient now on low-dose fentanyl and Precedex infusion, more awake -diuresis as tolerated 10/05: Right thoracentesis with removal of 500 mL off light yellow-colored fluid 10/[address] IMPRESSION: 1. Diffuse lung disease, stable from 09/28/2023, consistent with pulmonary edema versus pneumonia. 2. Small pleural effusions, right worse than left. 10/10 chest x-ray shows diffuse lung disease suggestive of pulmonary edema or pneumonia. Will continue diuretics. Patient has not tolerated weaning until now. Will try vent weaning today. If patient unable to wean to this weekend will discuss tracheostomy with patient's (2) Anemia: Code(s): D64.9 - Anemia, unspecified Status: Acute Assessment and Plan: 10/03 patient has chronic anemia but has had drastic drop in hemoglobin this morning. Her hemoglobin was 5 this morning she was on heparin drip which has been supratherapeutic despite following protocol and has been on hold now since last night when her PTT was more than 200. She has no sign of obvious bleeding with no bowel movement and tube feed residual was checked and was clear. She does have edema of both upper extremities and the skin appears bluish but no specific hematoma or bruise. will hold heparin infusion at this time - 10/03: CT scan of chest abdomen pelvis was done and did not show any retroperitoneal or intra-abdominal bleeding her PTT is in normal range and INR only 1.4 and hence she will not benefit any other blood products or protamine patient was transfused 2 units of PRBC and hemoglobin has been stable and will be continue to monitor she had 1 bowel movement which was dark and black suggestive of GI bleeding. - continue Protonix -EGD 10/06: with no signs of recent bleeding, only mild gastritis Will hold anticoagulation until EGD done -hemoglobin stable this morning (3) Interstitial lung disease: Code(s): J84.9 - Interstitial pulmonary disease, unspecified Status: Chronic Assessment and Plan: Shortness of breath, hypercapnic respiratory failure could be related to interstitial lung disease flare - decrease Solu-Medrol dose to 10 mg which is close to her home dose. -continue bronchodilators - patient evaluated by Pulmonary (4) CHF (congestive heart failure): Code(s): I50.9 - Heart failure, unspecified Status: Acute Assessment and Plan: Chest x-ray and CT chest show pulmonary edema and/or pneumonia -elevated proBNP 86084 -chest x-ray with possible pulmonary edema versus pneumonia, -10/08: patient is positive 8 L in fluid balance, diuresed well - will repeat diuresis today 09/30/2023: Echocardiogram Summary 1. Complete two-dimensional, color flow and Doppler transthoracic echocardiogram is performed. 2. Left ventricular chamber dimension is normal. 3. Left ventricular systolic function is preserved, estimated at 50-55%. 4. The left ventricular diastolic function is abnormal. 5. E/e' 27 is elevated. 6. Mechanical aortic valve. 7. There is trace regurgitation of the mechanical aortic
--- NOTE | 2023-10-11 09:46 | PM.PNNEP ---
Progress Note: A&P Assessment and Plan (1) ED (acute kidney injury): Code(s): N17.9 - Acute kidney failure, unspecified Status: Acute Assessment and Plan: back to baseline if not better was complicated by mild hyperkalemia on admission etiology likely multifactorial: fluctuating hemodynamics possible prerenal factors medications (bactrim, losartan, diuretics) CHF hypoxia other(?) evaluation to date noted: renal ultrasound with right kidney atrophy urine eosinophils negative urine electrolytes non-prerenal CPK okay azotemia likely secondary to steroids, possible GI bleed (although negative EGD) and catabolic state improvement in-spite of IV diuretic use follow trend of repeat labs and UOP (2) Chronic kidney disease, stage 3: Code(s): N18.30 - Chronic kidney disease, stage 3 unspecified Status: Chronic Assessment and Plan: has been present for the last few years (per ) presumably due to hypertension, diabetes, vascular disease, and age-related change noted creatinine of 1.13mg/dl in February 2023 (GFR ~ 52cc/min) (3) Acute hypercapnic respiratory failure: Code(s): J96.02 - Acute respiratory failure with hypercapnia Status: Acute Assessment and Plan: required intubation and mechanical ventilation multiple possible etiologies: known interstitial lung disease CHF infection/pneumonia(?) on steroids and bronchodilators steroids weaned to outpatient dose s/p thoracentesis on 10/05 continue ventilator support possible tracheostomy and PEG?? diuretic therapy PRN (4) Anemia: Code(s): D64.9 - Anemia, unspecified Status: Acute Assessment and Plan: noted drop in H/H s/p PRBC transfusion per protocol s/p EGD (on 10/06): no signs of recent bleeding, only mild gastritis follow H/H (5) CHF (congestive heart failure): Code(s): I50.9 - Heart failure, unspecified Status: Acute Assessment and Plan: admission CXR as well as CT chest demonstrate pulmonary edema and/[place] [address] Echo shows preserved systolic function some diastolic dysfunction [id number] mitral regurgitation and mild pulmonary hypertension continue diuretics as needed (6) Interstitial lung disease: Code(s): J84.9 - Interstitial pulmonary disease, unspecified Status: Chronic Assessment and Plan: on steroids and bronchodilators Pulmonary on board follow respiratory status (7) Essential (primary) hypertension: Code(s): I10 - Essential (primary) hypertension Status: Acute Assessment and Plan: reasonable control holding anti-HTN medications follow trend of hemodynamics (8) Mechanical heart valve present: Code(s): Z95.2 - Presence of prosthetic heart valve Status: Acute Assessment and Plan: mechanical aortic valve on anticoagulation follow PT/INR once coumadin resumed (9) Type 2 diabetes mellitus without complications: Code(s): E11.9 - Type 2 diabetes mellitus without complications Status: Acute Assessment and Plan: follow accu-cheks glycemic control per emergency medicine physician/hospitalist Will continue to follow intermittently. Subjective Date/time seen: 10/11/23 09:46 Interval history: Follow-up for acute kidney injury/acute renal failure on chronic kidney disease. Continues to make good/reasonable urine output with PRN IV bumex with stability if not improvement in renal function/BUN/creatinine in the last 48 hours; remains intubated/sedated and on mechanical ventilator support at this time; remains hemodynamically stable currently; noted dropping H/H by trend of labs. Exam Narrative: General: thin female intubated/sedated on mechanical ventilation Heart: normal S1 and S2; no rub Lungs: coarse breath sounds bilaterally Abdomen: soft, nontender, nondistended, + bowel soun
--- NOTE | 2023-10-11 09:46 | P.PNNP_ITS ---
Progress Note: A&P Assessment and Plan (1) ED (acute kidney injury): Code(s): N17.9 - Acute kidney failure, unspecified Status: Acute Assessment and Plan: * back to baseline if not better * was complicated by mild hyperkalemia on admission * etiology likely multifactorial: * fluctuating hemodynamics * possible prerenal factors * medications (bactrim, losartan, diuretics) * CHF * hypoxia * other(?) * evaluation to date noted: * renal ultrasound with right kidney atrophy * urine eosinophils negative * urine electrolytes non-prerenal * CPK okay * azotemia likely secondary to steroids, possible GI bleed (although negative EGD) and catabolic state * improvement in-spite of IV diuretic use * follow trend of repeat labs and UOP (2) Chronic kidney disease, stage 3: Code(s): N18.30 - Chronic kidney disease, stage 3 unspecified Status: Chronic Assessment and Plan: * has been present for the last few years (per ) * presumably due to hypertension, diabetes, vascular disease, and age-related change * noted creatinine of 1.13mg/dl in February 2023 (GFR ~ 52cc/min) (3) Acute hypercapnic respiratory failure: Code(s): J96.02 - Acute respiratory failure with hypercapnia Status: Acute Assessment and Plan: * required intubation and mechanical ventilation * multiple possible etiologies: * known interstitial lung disease * CHF * infection/pneumonia(?) * on steroids and bronchodilators * steroids weaned to outpatient dose * s/p thoracentesis on 10/05 * continue ventilator support * possible tracheostomy and PEG?? * diuretic therapy PRN (4) Anemia: Code(s): D64.9 - Anemia, unspecified Status: Acute Assessment and Plan: * noted drop in H/H * s/p PRBC transfusion per protocol * s/p EGD (on 10/06): no signs of recent bleeding, only mild gastritis * follow H/H (5) CHF (congestive heart failure): Code(s): I50.9 - Heart failure, unspecified Status: Acute Assessment and Plan: * admission CXR as well as CT chest demonstrate pulmonary edema and/or pneumonia * [place] [address] * Echo shows preserved systolic function some diastolic dysfunction [id number] mitral regurgitation and mild pulmonary hypertension * continue diuretics as needed (6) Interstitial lung disease: Code(s): J84.9 - Interstitial pulmonary disease, unspecified Status: Chronic Assessment and Plan: * on steroids and bronchodilators * Pulmonary on board * follow respiratory status (7) Essential (primary) hypertension: Code(s): I10 - Essential (primary) hypertension Status: Acute Assessment and Plan: * reasonable control * holding anti-HTN medications * follow trend of hemodynamics (8) Mechanical heart valve present: Code(s): Z95.2 - Presence of prosthetic heart valve Status: Acute Assessment and Plan: * mechanical aortic valve * on anticoagulation * follow PT/INR once coumadin resumed (9) Type 2 diabetes mellitus without complications: Code(s): E11.9 - Type 2 diabetes mellitus without complications Status: Acute Assessment and Plan: * follow accu-cheks * glycemic control per tile setter supervisor/hospitalist Will continue to follow intermittently. Subjective Date/time seen: 10/11/23 09:46 Interval history: Follow-up for acute kidney injury/acute renal failure on chroni
[2023-10-11 10:12] LABS: Procalcitonin 0.1 ng/mL
--- NOTE | 2023-10-11 10:46 | PCNFU ---
Nutrition Follow-Up Complete: Increased protein energy needs related to mechanical ventilation as evidenced by need for full tube feeding Goal: Meet estimated protein energy needs We will continue current goal. Pt current nutrition is Vital AF 1.2. at 45 ml/hr. Last recorded weight is 48 kg, up from 43.4 kg on admit. Bowel Motility: +BM reported 10/08 Labs Reviewed: Glu 205, BUN 90, GFR 55, Alb 3.1,Hgb 7.8,Hct 24.9 Meds Noted: Precedex, Fentanyl, Heparin. Skin: Deep Tissue-right ischium and sacrum. Additional Notes: Patient remains on mechanical vent. Plans for breathing trial today. Tolerating tube feedings of Vital AF 1.2 at 45 ml/hr. Flush 30 ml q 4 hours. Total Nutrition: 1188 kcals/74 gm protein/803 ml water. Meeting 92% kcal needs at 30 kcal/kg and 87% protein needs at 1.8 gm/kg. Will monitor renal labs, when stabilize would recommend starting Valentin BID for wound healing. Agree with diet orders. Monitoring tube feeding tolerance, weights, labs, plan of care Follow daily in ICU rounds, reassess Tuesdays and Fridays
[2023-10-11] MEDS: BISACODYL 10 MG SUPPOSITORY RECTAL (11:31)
[2023-10-11 11:50] LABS: Glucose Point of Care 207 mg/dl (65-105)
[2023-10-11 12:41] LABS: Partial Thromboplastin Time 85.4 Seconds (22.3-36.8)
[2023-10-11 16:05] LABS: Glucose Point of Care 183 mg/dl (65-105)
--- NOTE | 2023-10-11 16:55 | P.PN_ITS ---
Progress Note: A&P Assessment and Plan (1) Acute hypercapnic respiratory failure: Code(s): J96.02 - Acute respiratory failure with hypercapnia Status: Acute Assessment and Plan: Patient presented on 09/27 with altered mental status and respiratory distress. CT Ch/A/P showing diffuse lung disease likely moderate pulm edema, mod Rt and small Lt pleural effusion, small volume of ascites and GB distention. AB.19/98/97 on 2 L. BiPAP attempted but repeat ABG worse so patient was intubated in ED and admitted to ICU. Acute respiratory failure could be related to ILD, pleural effusions, general debility, CHF exacerbation and/or pneumonia. Abx started as Rocephin, Doxy and Vanco once approrpiate cultures obtained. MRSA nasal screen negative. Vancomycin was discontinued Sputum Cx negative. BCx negative. Lasix IV once 10/01 CT Chest 10/03 showing diffuse lung disease stable from 09/27 and stable small pleural effusions R>L Off all abx 10/03. WBC better at 19K Patient remains intubated. Spontaneous breathing trial unsuccessful Appreciate flotation tender input. Continue bronchodilators. Continue sedation and mechanical ventilation. (2) Hypotension: Code(s): I95.9 - Hypotension, unspecified Status: Acute Assessment and Plan: BP dropped requiring pressor support on 10/03. Levophed started and up titrated to 5mcg/min Related to acute blood loss? Albumin started. She was transfused. Hgb better. BP improved as well and able to wean down levophed Levophed stopped early hours on 10/04 Monitor (3) Anemia: Code(s): D64.9 - Anemia, unspecified Status: Acute Assessment and Plan: Hgb 9.6 on admission but dropped to 5 on 10/03. (ABG also showing Hgb at 5.1) BP soft as well. No evidence of acute blood loss. No schistocytes. TBili normal. Heparin stopped. She was transfused 2U PRBC. Repeat Hgb up to 10.7 before Hgb back down to 7-8 range GI consulted and EGD performed 10/06 showing gastritis. Monitor for evidence of bleeding (4) Interstitial lung disease: Code(s): J84.9 - Interstitial pulmonary disease, unspecified Status: Chronic Assessment and Plan: Hypercapnic respiratory failure could be related to interstitial lung disease flare Patient takes Prednisone at home Patient was started on Solu-Medrol Pulmonary consulted and appreciate their input (5) CHF (congestive heart failure): Code(s): I50.9 - Heart failure, unspecified Status: Acute Assessment and Plan: CT chest show pulmonary edema and pleural effusions. BNP 92437. Consider CHF vs pneumonia Echo showing normal LV systolic function with EF 50-55%, abnormal LV diastolic function, mechanical AV with trace regurg, mild-mod MR and mild pulmonary HTN. She received IV Lasix 10/01 with good UOP. Repeat CT as above Diuresis as tolerated. (6) Essential (primary) hypertension: Code(s): I10 - Essential (primary) hypertension Status: Acute Assessment and Plan: Anti-HTN agents on hold since patient is on mechanical ventilation and sedation and now with HoTN Albumin given x4. Off Levophed Monitor (7) Type 2 diabetes mellitus without complications: Code(s): E11.9 - Type 2 diabetes mellitus without complications Status: Acute Assessment and Plan: A1c is 6.3 this admission. The patient's blood glucose was reviewed on 10/07 Glucose mostly reasonable. Continue AccuCheks covering with sliding scale. Hypoglycemia protocol available as needed. Continue to monitor (8) Chr
[2023-10-11] MEDS: ASPIRIN 81 MG CHEWABLE TABLET PO (18:10)
[2023-10-11 21:51] LABS: Glucose Point of Care 190 mg/dl (65-105)
[2023-10-12] VITALS (64 sets, daily range): BP systolic 82–122; BP diastolic 46–73; PULSE 65–110; RESP 15–40; TEMP 35.5–37.9; O2SAT 92–98
[2023-10-12] MEDS: dexmedeTOMIDine 400 MCG/100 ML 400 MCG/100 ML BAG 17.59 MCG IV CONT ×5 (00:30→22:42)
[2023-10-12 00:53] LABS: Glucose Point of Care 198 mg/dl (65-105)
[2023-10-12] MEDS: LEVALBUTEROL NEB 1.25 MG/3 ML INHALATION ×4 (02:23→20:00)
[2023-10-12] MEDS: IPRATROPIUM BR 0.02% INH SOLN 0.5 MG/2.5 ML VIAL INHALATION ×4 (02:23→20:00)
[2023-10-12 04:43] LABS: Glucose Point of Care 188 mg/dl (65-105)
[2023-10-12 05:02] LABS: Base Excess ABG 1.2 mEq/l (+/-2.0); Fractional Inspired Oxygen 25 %; HCO3 ABG 25.3 mEq/l (22.0-26.0); Oxygen Content ABG 10.8 %vol (16.0-22.0); Oxygen Saturation ABG 96.4 % (95.0-100.0); Oxyhemoglobin 94.7 % THb (90.0-100.0); PCO2 ABG 37.5 mmHg (35.0-45.0); PO2 ABG 80.7 mmHg (80.0-100.0); PO2 FiO2 Ratio Arterial Blood 3.23 %; pH ABG 7.447 (7.350-7.450)
[2023-10-12 05:03] LABS: Device VENTILATOR; Modified Allen's Test Pass; Site Drawn RIGHT RADIAL
[2023-10-12 05:04] LABS: Arterial Blood Gas PEEP 5 cmH2O; Arterial Blood Gas Tidal Volume 270 ml; Arterial Blood Gas Vent Mode CMV; Arterial Blood Gas Ventilator rate 14 /MIN
[2023-10-12 06:39] LABS: Hemoglobin 7.5 g/dL (12.0-15.0); Mean Corpuscular HGB Conc 31.3 g/dl (32-36); Mean Corpuscular Hemoglobin 30.6 pg (26-34); Mean Platelet Volume 10.7 fl (7.4-10.4); Platelet Count Result 198 k/mm3 (150-375); Red Blood Count 2.45 M/mm3 (4.2-5.4); Red Cell Distribution Width 18.8 % (11.5-14.5); White Blood Count 31.5 K/mm3 (4.5-10.0)
[2023-10-12] MEDS: CENTRAL LINE FLUSH 10 ML IV PUSH ×3 (06:47→21:24)
[2023-10-12 06:49] LABS: Alanine Aminotransferase 32 U/L (6-35); Albumin Level 3.1 g/dL (3.5-5.1); Alkaline Phosphatase 51 U/L (38-126); Anion Gap 8 mmol/L (4-12); Aspartate Amino Transferase 44 U/L (14-36); Bilirubin,Total 0.4 mg/dL (0.2-1.3); Blood Urea Nitrogen 90 mg/dL (7-17); Calcium 8.5 mg/dL (8.4-10.2); Carbon Dioxide 26 mmol/L (22-30); Chloride 105 mmol/L (98-107); Estimated CRCL calculation 29 ml/min; Estimated Glomerular Filt Rate 49; Glucose 203 mg/dL (65-110); Magnesium 2.2 mg/dL (1.6-2.3); Potassium 4.1 mmol/L (3.4-5.0); Sodium 139 mmol/L (137-145)
[2023-10-12 07:09] LABS: INR 1.1; Prothrombin Time 14.7 Seconds (11.1-14.7)
[2023-10-12 07:10] LABS: Partial Thromboplastin Time 70.7 Seconds (22.3-36.8)
--- NOTE | 2023-10-12 08:24 | WPDINTPN ---
Progress Note: A&P Assessment and Plan (1) Acute hypercapnic respiratory failure: Code(s): J96.02 - Acute respiratory failure with hypercapnia Status: Acute Assessment and Plan: 09/27: Patient presented with altered mental status, respiratory distress was found to be an acute hypercapnic respiratory failure, not amenable to BiPAP, was successfully intubated in the ER on 09/28/2023 -acute respiratory failure could be related to baseline interstitial lung disease , pleural effusions, general debility and CHF exacerbation, possible pneumonia Currently patient on CMV mode of ventilation with low tidal volume strategy to avoid barotrauma and volume trauma. -peep of 5, 25% FiO2 -ABGs and chest x-ray reviewed -continue bronchodilators -status post course of ceftriaxone, doxycycline -on Solu-Medrol 10 mg IV daily for her ILD which she has to take at home -patient now on low-dose fentanyl and Precedex infusion, more awake -diuresis as tolerated 10/05: Right thoracentesis with removal of 500 mL off light yellow-colored fluid 10/[address] IMPRESSION: 1. Diffuse lung disease, stable from 09/28/2023, consistent with pulmonary edema versus pneumonia. 2. Small pleural effusions, right worse than left. 10/10 chest x-ray shows diffuse lung disease suggestive of pulmonary edema or pneumonia. Will continue diuretics. Patient was tried on PSV but due to high RSBI pressure support was increased to 12 which patient tolerated for few hours and then was switched back to CMV due to tachypnea. Spoke to patient and discussed option of tracheostomy if patient is unable to be weaned from ventilator. Patient's is agreeable to proceed with tracheostomy patient cannot be weaned from the ventilator. 10/11 continue Bumex, try PSV again If patient unable to wean to this weekend will discuss tracheostomy with patient's (2) Anemia: Code(s): D64.9 - Anemia, unspecified Status: Acute Assessment and Plan: 10/03 patient has chronic anemia but has had drastic drop in hemoglobin this morning. Her hemoglobin was 5 this morning she was on heparin drip which has been supratherapeutic despite following protocol and has been on hold now since last night when her PTT was more than 200. She has no sign of obvious bleeding with no bowel movement and tube feed residual was checked and was clear. She does have edema of both upper extremities and the skin appears bluish but no specific hematoma or bruise. will hold heparin infusion at this time - 10/03: CT scan of chest abdomen pelvis was done and did not show any retroperitoneal or intra-abdominal bleeding her PTT is in normal range and INR only 1.4 and hence she will not benefit any other blood products or protamine patient was transfused 2 units of PRBC and hemoglobin has been stable and will be continue to monitor she had 1 bowel movement which was dark and black suggestive of GI bleeding. - continue Protonix -EGD 10/06: with no signs of recent bleeding, only mild gastritis Will hold anticoagulation until EGD done -hemoglobin stable this morning (3) Interstitial lung disease: Code(s): J84.9 - Interstitial pulmonary disease, unspecified Status: Chronic Assessment and Plan: Shortness of breath, hypercapnic respiratory failure could be related to interstitial lung disease flare - decrease Solu-Medrol dose to 10 mg which is close to her home dose. -continue bronchodilators - patient evaluated by Pulmonary (4) CHF (congestive heart failure): Code(s): I50.9 - Heart failure, unspecified Status: Acute Assessment and Plan: Chest x-ray and CT chest show pulmonary edema and/or pneumonia -elevated proBNP 23043 -chest x-ray with possible pulmonary edema versus pneumonia, -10/08: patient is positive 8 L in fluid balance, diuresed well - will repeat diuresis today 09/30/2023: Echocardiogram Summary 1. Complete two-dimensional, color flow and Doppler
[2023-10-12] MEDS: PANTOPRAZOLE SODIUM IV 40 MG VIAL IV PUSH ×2 (09:09→21:23)
[2023-10-12] MEDS: methylPREDNISolone SOD SUCC 40 MG VIAL 10 MG IV PUSH (09:09)
[2023-10-12] MEDS: METOPROLOL TARTRATE 25 MG TABLET 75 MG FEED TUBE (09:10)
[2023-10-12] MEDS: ATORVASTATIN 40 MG TABLET PO (09:10)
[2023-10-12] MEDS: BUMETANIDE INJ 1 MG/4 ML VIAL IV PUSH (09:27)
[2023-10-12] MEDS: INSULIN GLARGINE (*BKC) 100 UNITS/ML 10 UNITS SUB-Q (09:27)
[2023-10-12] MEDS: MINERAL OIL/WHITE PETROLATUM OINTMENT 1 APPLIC EACH EYE ×2 (09:29→21:23)
[2023-10-12] MEDS: HEPARIN SODIUM 5,000 UNITS/ML VIAL 1500 UNITS IV PUSH (09:35)
[2023-10-12 10:33] LABS: Glucose Point of Care 197 mg/dl (65-105)
[2023-10-12] MEDS: FENTANYL 2,500MCG/NS250ML(*CRX 2,500 MCG/250 ML BAG 15 MCG IV CONT (12:22)
[2023-10-12 12:35] LABS: Glucose Point of Care 189 mg/dl (65-105)
[2023-10-12] MEDS: LORazepam INJ (*CRX) 2 MG/ML VIAL IV PUSH (13:38)
[2023-10-12 16:40] LABS: Glucose Point of Care 203 mg/dl (65-105)
[2023-10-12] MEDS: INSULIN ASPART (*BKC) 100 UNITS/ML SUB-Q (17:00)
[2023-10-12] MEDS: ASPIRIN 81 MG CHEWABLE TABLET PO (17:04)
[2023-10-12 17:20] LABS: Partial Thromboplastin Time > 200.0 Seconds (22.3-36.8)
[2023-10-12] MEDS: HEPARIN SOD/D5W 100 UNITS/ML 25,000 UNITS/250 ML BAG 6 UNITS IV CONT (17:24)
--- NOTE | 2023-10-12 17:43 | WPDPN ---
Progress Note: A&P Assessment and Plan (1) Acute hypercapnic respiratory failure: Code(s): J96.02 - Acute respiratory failure with hypercapnia Status: Acute (2) CHF (congestive heart failure): Code(s): I50.9 - Heart failure, unspecified Status: Acute (3) Interstitial lung disease: Code(s): J84.9 - Interstitial pulmonary disease, unspecified Status: Chronic (4) Paroxysmal atrial fibrillation: Code(s): I48.0 - Paroxysmal atrial fibrillation Status: Acute (5) Type 2 diabetes mellitus without complications: Code(s): E11.9 - Type 2 diabetes mellitus without complications Status: Acute Plan DVT prophylaxis: SCDs Stress ulcer prophylaxis: Protonix Code Status: DNR patient with history of ILD with pleural effusion presented to the ER with shortness of breath and was found to have hypercapnic respiratory failure initially patient was placed on BiPAP however patient's CO2 was still was elevated and subsequently patient was intubated, concerned patient may have pneumonia, CHF exacerbation and debility. Patient had been treated Rocephin and doxycycline as well as diuretic and patient is responding, on 10/10 family was present in the room. patient's and daughter, today patient is present in the room It has been 14 days on ventilator and manager art had discussed with patient's for possible trach and PEG, however family is debating to withdrawal of care, family will discuss and further recommendation to follow. Subjective Date/time seen: 10/12/23 17:43 Interval history: 73yo female with history of CVA, CAD, CHF, valve disease status post mechanical aortic valve replacement on warfarin, pAFib, chronic ILD, CKD, DM and HTN here from home for evaluation of altered mental status. Failed breathing trial again. Converted to sinus rhythm. Not following commands. Heparin to be resumed today. Family is considering withdrawaing care. patient with history of ILD with pleural effusion presented to the ER with shortness of breath and was found to have hypercapnic respiratory failure initially patient was placed on BiPAP however patient's CO2 was still was elevated and subsequently patient was intubated, concerned patient may have pneumonia, CHF exacerbation and debility. Patient had been treated Rocephin and doxycycline as well as diuretic and patient is responding, on 10/10 family was present in the room. patient's and daughter, today patient is present in the room It has been 14 days on ventilator and manager art had discussed with patient's for possible trach and PEG, however family is debating to withdrawal of care, family will discuss and further recommendation to follow. Review of Systems Review of Systems: ROS unobtainable: Yes unobtainable due to endotracheal tube Exam Narrative: Patient is comfortable, NAD HEENT: ET tube in place LUNGS: Bilateral poor air with rhonchi HEART: RR S1S2 ABD: BS+, Soft and nontender Lower extremities: no edema SKIN: nonjaundiced Neuro: On vent and sedated. Objective Data Vital Signs Vital Signs: Vital Signs - 24 hr 10/11/23 18:00 10/11/23 18:00 10/11/23 18:00 Temperature 36.7 C Pulse Rate 92 98 103 H Respiratory Rate 18 18 18 Blood Pressure 121/59 L Pulse Oximetry 97 Oxygen Delivery Fraction of Inspired Oxygen 10/11/23 18:00 10/11/23 18:09 10/11/23 18:09 Temperature Pulse Rate 96 94 94 Respiratory Rate 26 H 26 H Blood Pressure Pulse Oximetry Oxygen Delivery Fraction of Inspired Oxygen 10/11/23 20:16 10/11/23 20:16 10/11/23 20:27 Temperature Pulse Rate 94 94 73 Respiratory Rate 21 H 22 H Blood Pressure Pulse Oximetry 95 Oxygen Delivery Mechanical Ventilation Fraction of Inspired Oxygen 10/11/23 21:43 10/11/23 20:00 10/11/23 20:00 Temperature Pulse Rate 78 92 92 Respiratory Rate 24 H 24 H Blood Pres
[2023-10-12] MEDS: ACETAMINOPHEN ELIXIR 325 MG/10.15 ML UDC 650 MG FEED TUBE (21:22)
[2023-10-13] VITALS (35 sets, daily range): BP systolic 45–115; BP diastolic 34–78; PULSE 48–123; RESP 15–35; TEMP 37.1–37.4; O2SAT 72–100
[2023-10-13 00:25] LABS: Glucose Point of Care 192 mg/dl (65-105)
[2023-10-13 00:25] LABS: Glucose Point of Care 184 mg/dl (65-105)
[2023-10-13 00:36] LABS: Partial Thromboplastin Time 79.1 Seconds (22.3-36.8)
[2023-10-13] MEDS: LEVALBUTEROL NEB 1.25 MG/3 ML INHALATION ×3 (02:10→13:44)
[2023-10-13] MEDS: IPRATROPIUM BR 0.02% INH SOLN 0.5 MG/2.5 ML VIAL INHALATION ×3 (02:10→13:44)
[2023-10-13] MEDS: dexmedeTOMIDine 400 MCG/100 ML 400 MCG/100 ML BAG 17.59 MCG IV CONT (04:23)
[2023-10-13] MEDS: METOPROLOL TARTRATE 25 MG TABLET 75 MG FEED TUBE (04:52)
[2023-10-13 05:05] LABS: Hematocrit 22.8 % (37.0-47.0); Mean Corpuscular HGB Conc 30.7 g/dl (32-36); Mean Corpuscular Volume 97.9 fl (80-100); Platelet Count Result 212 k/mm3 (150-375); Red Blood Count 2.33 M/mm3 (4.2-5.4); Red Cell Distribution Width 18.8 % (11.5-14.5); White Blood Count 32.1 K/mm3 (4.5-10.0)
[2023-10-13 05:15] LABS: INR 1.1; Prothrombin Time 14.7 Seconds (11.1-14.7)
[2023-10-13 05:17] LABS: Partial Thromboplastin Time 73.6 Seconds (22.3-36.8)
[2023-10-13 05:23] LABS: Alanine Aminotransferase 37 U/L (6-35); Albumin Level 3.1 g/dL (3.5-5.1); Alkaline Phosphatase 67 U/L (38-126); Anion Gap 11 mmol/L (4-12); Aspartate Amino Transferase 37 U/L (14-36); Bilirubin,Total 0.6 mg/dL (0.2-1.3); Blood Urea Nitrogen 105 mg/dL (7-17); Calcium 8.4 mg/dL (8.4-10.2); Carbon Dioxide 22 mmol/L (22-30); Chloride 102 mmol/L (98-107); Estimated CRCL calculation 25 ml/min; Estimated Glomerular Filt Rate 40; Glucose 237 mg/dL (65-110); Magnesium 2.1 mg/dL (1.6-2.3); Potassium 4.2 mmol/L (3.4-5.0); Sodium 135 mmol/L (137-145)
[2023-10-13] MEDS: INSULIN ASPART (*BKC) 100 UNITS/ML SUB-Q ×3 (06:30→11:48)
[2023-10-13] MEDS: CENTRAL LINE FLUSH 10 ML IV PUSH ×2 (06:30→13:20)
[2023-10-13 06:58] LABS: Glucose Point of Care 219 mg/dl (65-105)
[2023-10-13 08:04] LABS: Glucose Point of Care 213 mg/dl (65-105)
[2023-10-13] MEDS: polyethylene glycoL 3350 17 GM POWD.PACK FEED TUBE (08:17)
[2023-10-13] MEDS: ATORVASTATIN 40 MG TABLET PO (08:17)
[2023-10-13] MEDS: PANTOPRAZOLE SODIUM IV 40 MG VIAL IV PUSH (08:17)
[2023-10-13] MEDS: PROPOFOL IV EMULSION 100 ML 1.45 MG IV CONT (08:18)
[2023-10-13] MEDS: BISACODYL 10 MG SUPPOSITORY RECTAL (08:23)
--- NOTE | 2023-10-13 08:30 | WPDINTPN ---
Progress Note: A&P Assessment and Plan (1) Acute hypercapnic respiratory failure: Code(s): J96.02 - Acute respiratory failure with hypercapnia Status: Acute Assessment and Plan: 09/27: Patient presented with altered mental status, respiratory distress was found to be an acute hypercapnic respiratory failure, not amenable to BiPAP, was successfully intubated in the ER on 09/28/2023 -acute respiratory failure could be related to baseline interstitial lung disease , pleural effusions, general debility and CHF exacerbation, possible pneumonia Currently patient on CMV mode of ventilation with low tidal volume strategy to avoid barotrauma and volume trauma. -peep of 5, 25% FiO2 -ABGs and chest x-ray reviewed -continue bronchodilators -status post course of ceftriaxone, doxycycline -on Solu-Medrol 10 mg IV daily for her ILD which she has to take at home -patient now on low-dose fentanyl and Precedex infusion, more awake -diuresis as tolerated 10/05: Right thoracentesis with removal of 500 mL off light yellow-colored fluid 10/[address] IMPRESSION: 1. Diffuse lung disease, stable from 09/28/2023, consistent with pulmonary edema versus pneumonia. 2. Small pleural effusions, right worse than left. 10/10 chest x-ray shows diffuse lung disease suggestive of pulmonary edema or pneumonia. Will continue diuretics. Patient was tried on PSV but due to high RSBI pressure support was increased to 12 which patient tolerated for few hours and then was switched back to CMV due to tachypnea. Spoke to patient and discussed option of tracheostomy if patient is unable to be weaned from ventilator. Patient's is agreeable to proceed with tracheostomy patient cannot be weaned from the ventilator. 10/11 continue Bumex, try PSV again If patient unable to wean to this weekend will discuss tracheostomy with patient's 10/12 PSV was again attempted today but patient quickly failed due to worsening tachypnea high RSBI the respirator going into 40s this was despite patient being on Precedex infusion (2) Anemia: Code(s): D64.9 - Anemia, unspecified Status: Acute Assessment and Plan: 10/03 patient has chronic anemia but has had drastic drop in hemoglobin this morning. Her hemoglobin was 5 this morning she was on heparin drip which has been supratherapeutic despite following protocol and has been on hold now since last night when her PTT was more than 200. She has no sign of obvious bleeding with no bowel movement and tube feed residual was checked and was clear. She does have edema of both upper extremities and the skin appears bluish but no specific hematoma or bruise. will hold heparin infusion at this time - 10/03: CT scan of chest abdomen pelvis was done and did not show any retroperitoneal or intra-abdominal bleeding her PTT is in normal range and INR only 1.4 and hence she will not benefit any other blood products or protamine patient was transfused 2 units of PRBC and hemoglobin has been stable and will be continue to monitor she had 1 bowel movement which was dark and black suggestive of GI bleeding. - continue Protonix -EGD 10/06: with no signs of recent bleeding, only mild gastritis Will hold anticoagulation until EGD done -hemoglobin gradually trending down. -monitor and transfuse as needed (3) Interstitial lung disease: Code(s): J84.9 - Interstitial pulmonary disease, unspecified Status: Chronic Assessment and Plan: Shortness of breath, hypercapnic respiratory failure could be related to interstitial lung disease flare - decrease Solu-Medrol dose to 10 mg which is close to her home dose. -continue bronchodilators - patient evaluated by Pulmonary (4) CHF (congestive heart failure): Code(s): I50.9 - Heart failure, unspecified Status: Acute Assessment and Plan: Chest x-ray and CT chest show pulmonary edema and/or pneumonia -elevated proBNP 68875 -chest x-ray with possible pul
[2023-10-13 08:41] LABS: Triglycerides 91 mg/dL (<150)
[2023-10-13] MEDS: INSULIN GLARGINE (*BKC) 100 UNITS/ML 10 UNITS SUB-Q (09:00)
[2023-10-13] MEDS: MINERAL OIL/WHITE PETROLATUM OINTMENT 1 APPLIC EACH EYE (09:19)
[2023-10-13] MEDS: methylPREDNISolone SOD SUCC 40 MG VIAL 10 MG IV PUSH (09:19)
--- NOTE | 2023-10-13 09:38 | ECG_ITS ---
Test Date: 2023-10-13 10:16:14 Measurements Intervals [place] Rate: 111 P: 0 NM: 0 QRS: 77 QRSD: 118 T: 165 QT: 313 QTc: 427 Interpretive Statements ATRIAL FIBRILLATION WITH RAPID VENTRICULAR RESPONSE WITH ABERRANT CONDUCTION OR VENTRICULAR PREMATURE COMPLEXES NONSPECIFIC INTRAVENTRICULAR CONDUCTION DELAY NONSPECIFIC ST AND T ABNORMALITY ABNORMAL ECG WARNING: DATA QUALITY MAY AFFECT INTERPRETATION Compared to ECG 10/07/2023 08:40:22 NO OBVIOUS CHANGE ALTHOUGH CURRENT ECG IS OF POOR QUALITY Electronically Signed On 10-15-2023 07:05:26 CDT by Sushant Beyer M.D.
[2023-10-13] MEDS: MIDAZOLAM 100MG/NS 100ML(*CRX) 100 MG/100 ML BAG IV CONT (10:11)
[2023-10-13] MEDS: INSULIN GLARGINE (*BKC) 100 UNITS/ML SUB-Q (10:15)
[2023-10-13] MEDS: ALBUMIN HUMAN 5% 25 GM/500 ML BTL IV CONT (10:16)
--- NOTE | 2023-10-13 11:04 | PCRCNOTE ---
Patient did not tolerate being turned while nursing was cleaning her up. Patient's O2 sats dropped to 50% while on the ventilator. RN initiated 100% FiO2 and O2 sats improved but only to 64%. RT suctioned patient and went ahead and advanced ET tube @ this time per Dr. Matias's order from this morning. O2 sats did not improve. RT took patient off of ventilator and bagged pt at 100% 15L flush until O2 sats improved to 100%. RT placed pt back on ventilator and slowly weaned FiO2 back down to previous setting of 25%. Pt still currently satting 100%. RN present for entire encounter.
[2023-10-13] MEDS: LORazepam INJ (*CRX) 2 MG/ML VIAL IV PUSH (11:27)
[2023-10-13 11:53] LABS: Glucose Point of Care 221 mg/dl (65-105)
[2023-10-13] MEDS: NOREPINEPHRINE 8 MG/D5W 250 ML 8 MG/250 ML BAG 9.38 MG IV CONT (13:19)
[2023-10-13 13:35] LABS: Hematocrit 23.3 % (37.0-47.0); Hemoglobin 7.1 g/dL (12.0-15.0); Mean Corpuscular HGB Conc 30.5 g/dl (32-36); Mean Corpuscular Hemoglobin 30.5 pg (26-34); Mean Platelet Volume 10.4 fl (7.4-10.4); Platelet Count Result 208 k/mm3 (150-375); Red Blood Count 2.33 M/mm3 (4.2-5.4); Red Cell Distribution Width 18.9 % (11.5-14.5); White Blood Count 34.2 K/mm3 (4.5-10.0)
--- NOTE | 2023-10-13 13:52 | PCRCNOTE ---
RT in patient's room for ventilator check and breathing tx. Breathing tx placed in line with vent. Dr. Matias and RN in room with RT due to low BP, low HR, and low perfusion for SpO2 reading. FiO2 increased to 50% on ventilator. RN contacting family.
[2023-10-13 14:20] LABS: Add Urine Microscopic? YES; Appearance Urine Cloudy (Clear); Bacteria Urine None Seen /hpf; Bilirubin Urine Negative (Negative); Blood Urine 3+ (Negative); Color Urine Yellow (Yellow); Glucose Urine UA Negative (Negative); Ketones Urine Negative (Negative); Leukocyte Esterase Ur 1+ LEU/UL (Negative); Need Manual Microscopic Reviewed; Nitrate Urine Negative (Negative); Non Pathogenic Casts >20; Protein Urine Trace mg/dL (Negative); RBC Urine >100 /hpf (0-2); Specific Grav Ur 1.017 (1.001-1.035); Squamous Epithelial Cell Urine Few /hpf (Few)
--- NOTE | 2023-10-13 14:22 | P.PNCROSS_ITS ---
Event Note Event Note Event Note: Patient suddenly dropped blood pressure and heart rate. Patient was given albu min bolus and followed by IV fluid saline bolus. Levophed was started to buy time for her family to get here although the had initially requested not to further escalate care. He was called by phone and he came back to the ICU. Patient developed wide complex bradycardia with episodes of asystole with spontaneous resolution back into bradycardia. She had equal breath sounds on exam. FiO2 was increased to 100%. Patient is DNR. She maintained a pulse although it was weak and bradycardic. now at bedside and I again spoke with him at bedside. I explained him that patient is currently bradycardic and not perfusing despite being on 20 mcg of Levophed. He he verbalized that he understands the patient is denying but wants to maintain the current support in order to keep her 'heart going' until his children can get here and then plans to proceed with palliative extubation and comfort care if patient survives until then. He states that if patient cannot make it until the kids get here and that is okay as he feels the patient is at peace and does not want her to further suffer. Additional critical care time 40 minutes
--- NOTE | 2023-10-13 15:15 | P.DN_ITS ---
Discharge Summary Date and Time Date of : 10/13/23 Time of : 14:41 Provider Pronounced By: Provider Name of Provider That Pronounced: Florencio Probable Cause of Probable Cause of : Cardiogenic Shock Summary Hospital Course: patient with history of ILD with pleural effusion presented to the ER with shortness of breath and was found to have hypercapnic respiratory failure initially patient was placed on BiPAP however patient's CO2 was still was elevated and subsequently patient was intubated, concerned patient may have pneumonia, CHF exacerbation and debility. Patient had been treated Rocephin and doxycycline as well as diuretic and patient is responding, on 10/10 family was present in the room. patient's and daughter, today patient is present in the room It has been 14 days on ventilator and national accounts sales had discussed with patient's for possible trach and PEG, however family is debating to withdrawal of care, family will discuss and further recommendation to follow. on 10/12 patient went into cardiogenic shock effort were carried by giving albumin and Levophed to prevent further hypotension despite efforts patient was pronounced on 10/12 14:41 Additional Data Confirmation of as documented by pronouncing clinician: Pupillary Reflex, Palpable Pulses, Response to Stimuli, Heart Tones and Breath Sounds Name of Provider Notified: Jessi Time Provider Notified: 14:50 Provider Requests Autopsy: No Family Requests Autopsy: No Network Support Administrator Notified: Yes Date [facility] Notified of : 10/13/23 Time [facility] Notified of : 15:05
--- NOTE | 2023-10-13 15:21 | PC.NURSE ---
At 1340 patient persistently hypotensive despite initiating Levophed gtt. Heart rate has now decreased to 67 bpm. RN notified provider Dr. Matias. All sedation placed on standby. MD present at bedside. Orders to place heparin gtt on hold and give patient a 500 cc Bolus of NS. Provider order to continue holding sedation. Patient remains persistently hypotensive. Blood pressure 59/39 at 1342. Verbal order per MD at bedside to increase Levophed gtt. to 20 mcg. RN increased gtt to 20 mcg. Patients family called and notified in change of patient condition. Family to arrive at hospital. Patient profoundly hypotensive, difficulty picking up SpO2 related to inadequate perfusion. FiO2 increased to 50% on Ventilator. MD remains at bedside to give instructions. Awaiting on family arrival. Patient unresponsive to Levophed gtt. Patient continuing to become more and more bradycardic with rhythm changes noted. Pulses are weak and thready. Provider remained at bedside as well as this nurse and charge nurse. Family arrival at 1415. MD Dr. Matias updated family on change in status. Patient remains DNR. Family in agreement that they acknowledge patient is passing away. Family support provided. declared patient at 1441. Order to stop levophed gtt. at this time. MD order for respiratory to remove ET tube, at 1445 ET tube removed per RT. Family remains at bedside. Hospitalist updated and made aware of patient status.
--- NOTE | 2023-10-13 15:30 | PCRCNOTE ---
Pt extubated @ 1445 due to expiration @ 1441.
== END 2023-10-13 14:41 | disposition expired | DRG 207 ==
LOC: ANHED 10:24 → ANHICU 13:38
PROVIDERS: Internal Medicine; Internal Medicine Gastroenterology; Physician Assistant; Student in an Organized Health Care Education/Training Program; Admitting Provider Internal Medicine; Emergency Provider Student in an Organized Health Care Education/Training Program; Visit Provider Family Medicine
PROC: 0DJ08ZZ Inspection of Upper Intestinal Tract, Via Natural or Artificial Opening Endoscopic (ICD-10-PCS; CPT 43235; principal; 2023-10-07 16:45)
DX: J96.02 Acute respiratory failure with hypercapnia (principal); I50.33 Acute on chronic diastolic (congestive) heart failure; N17.9 Acute kidney failure, unspecified; E46 Unspecified protein-calorie malnutrition; J84.9 Interstitial pulmonary disease, unspecified; G93.40 Encephalopathy, unspecified; D62 Acute posthemorrhagic anemia; J90 Pleural effusion, not elsewhere classified; I13.0 Hypertensive heart and chronic kidney disease with heart failure and stage 1 through stage 4 chronic kidney disease, or unspecified chronic kidney disease; K92.2 Gastrointestinal hemorrhage, unspecified; J96.01 Acute respiratory failure with hypoxia; R62.7 Adult failure to thrive; I25.10 Atherosclerotic heart disease of native coronary artery without angina pectoris; E78.5 Hyperlipidemia, unspecified; E87.5 Hyperkalemia; E11.9 Type 2 diabetes mellitus without complications; Z20.822 Contact with and (suspected) exposure to COVID-19; I48.0 Paroxysmal atrial fibrillation; D64.9 Anemia, unspecified; F41.9 Anxiety disorder, unspecified; E11.649 Type 2 diabetes mellitus with hypoglycemia without coma; N18.30 Chronic kidney disease, stage 3 unspecified; E11.22 Type 2 diabetes mellitus with diabetic chronic kidney disease; I27.20 Pulmonary hypertension, unspecified; I34.0 Nonrheumatic mitral (valve) insufficiency; R00.1 Bradycardia, unspecified; K29.70 Gastritis, unspecified, without bleeding; Z95.1 Presence of aortocoronary bypass graft; Z79.82 Long term (current) use of aspirin; Z95.2 Presence of prosthetic heart valve; Z68.20 Body mass index [BMI] 20.0-20.9, adult; Z79.01 Long term (current) use of anticoagulants; Z86.73 Personal history of transient ischemic attack (TIA), and cerebral infarction without residual deficits
CPT/HCPCS: 31500; 32555; 36415; 36430; 36569; 36600; 70450; 71045; 71250; 74018; 74176; 76775; 80048; 80053; 80069; 80202; 81001; 81003; 82140; 82375; 82436; 82550; 82570; 82607; 82728; 82746; 82805; 82948; 83036; 83050; 83540; 83550; 83605; 83690; 83735; 83880; 84100; 84133; 84145; 84300; 84443; 84478; 84484; 85014; 85018; 85025; 85027; 85380; 85610; 85730; 85999; 86140; 86850; 86900; 86901; 86923; 87040; 87070; 87086; 87205; 87637; 87641; 93005; 93306; 93970; 94002; 94003; 94640; 96365; 96375; 99291; A9270; J0171; J0360; J0696; J1644; J1815; J1939; J1940; J2060; J2250; J2405; J2470; J2704; J2919; J3010; J3370; J3475; J7030; J7042; J7050; J7120; P9016; P9045; P9047